=== PATIENT | male | born 1945 | race Caucasian/White ===

== ENCOUNTER → 2017-02-27 | Outpatient (CLI) | payer MEDICARE ==
[2017-02-27 08:10] LABS: ALT 29 U/L (21-72); AST 26 U/L (17-59); Alkaline Phosphatase 62 U/L (38-126); Anion Gap 12 mmol/L; Blood Urea Nitrogen 19 mg/dL (9-20); Calcium 9.9 mg/dL (8.4-10.2); Carbon Dioxide 27 mmol/L (22-30); Chloride 102 mmol/L (98-107); Cholesterol 174 mg/dL (<200); Glucose 101 mg/dL (74-99); HDL Cholesterol 53 mg/dL (40-60); Non-African American GFR(MDRD) >60 (>60 ml/min/1.73 sqM); Potassium 4.9 mmol/L (3.5-5.1); Sodium 141 mmol/L (137-145); Total Bilirubin 1.1 mg/dL (0.2-1.3); Total Protein 7.4 g/dL (6.3-8.2); Triglycerides 136 mg/dL (<150)
== END | disposition home or self-care (01) ==
LOC: LABWHC1 07:00
PROVIDERS: ATTEND Internal Medicine Interventional Cardiology
DX: E78.2 Mixed hyperlipidemia (principal)
CPT/HCPCS: 36415; 80053; 80061

== ENCOUNTER 2018-02-19 09:57 | Emergency (ER) | payer MEDICARE ==
[2018-02-19 10:53] LABS: Basophils % (A) 0 %; Eosinophils # (A) 0.1 k/uL (0-0.7); Eosinophils % (A) 1 %; HCT 47.6 % (39.0-53.0); HGB 15.5 gm/dL (13.0-17.5); Lymphocytes # (A) 1.7 k/uL (1.0-4.8); Lymphocytes % (A) 24 %; MCH 28.8 pg (25.0-35.0); MCHC 32.6 g/dL (31.0-37.0); MCV 88.4 fL (80.0-100.0); Mean Platelet Volume 6.7; Monocytes # (A) 0.4 k/uL (0-1.0); Monocytes % (A) 6 %; Neutrophils # (A) 4.7 k/uL (1.3-7.7); Neutrophils % (A) 66 %; Platelet Count 227 k/uL (150-450); RBC 5.38 m/uL (4.30-5.90); RDW 13.5 % (11.5-15.5); WBC 7.1 k/uL (3.8-10.6)
[2018-02-19 11:01] LABS: Albumin 4.3 g/dL (3.5-5.0); Calcium 9.9 mg/dL (8.4-10.2); Potassium 4.7 mmol/L (3.5-5.1); Total Bilirubin 1.1 mg/dL (0.2-1.3); Total Protein 6.8 g/dL (6.3-8.2)
[2018-02-19] MEDS ORDERED: RX INFO: IV CONTRAST WAS GIVEN 1 EACH MISC MISCELLANE PRN (11:24)
--- NOTE | 2018-02-19 11:26 | ED ---
General Adult HPI - General Chief complaint: Abdominal Pain Stated complaint: abd pain Time Seen by Provider: 02/19/18 11:18 Source: patient, RN notes reviewed Mode of arrival: ambulatory Limitations: no limitations - History of Present Illness Initial comments: Patient 73-year-old male presenting to the emergency room today with a chief complaint of left lower quadrant pain that started 3 days ago. Patient states that pain is constant and at times becomes more intense and sharp. Patient currently rates it a 6/10. Patient does admit to feeling a little nauseated this morning. Patient denies any other complaints or symptoms. States never had similar symptoms in the past. Patient denies any recent fever, chills, shortness of breath, chest pain, back pain, vomiting, numbness or tingling, dysuria or hematuria, constipation or diarrhea, headaches or visual changes, or any other complaints. - Related Data Home Medications Medication Instructions Recorded Confirmed Aspirin 81 mg PO DAILY 06/22/14 02/19/18 Lisinopril [Prinivil] 5 mg PO HS 06/22/14 02/19/18 Pravastatin Sodium [Pravachol] 80 mg PO HS 06/22/14 02/19/18 Previous Rx's Medication Instructions Recorded Ciprofloxacin HCl [Cipro] 500 mg PO Q12HR #20 day 02/19/18 metroNIDAZOLE [Flagyl] 500 mg PO TID #21 tab 02/19/18 Allergies Allergy/AdvReac Type Severity Reaction Status Date / Time Penicillins Allergy Rash/Hives Verified 02/19/18 11:43 chocolate Allergy Abdominal Uncoded 02/19/18 10:01 Pain Review of Systems ROS Statement: Those systems with pertinent positive or pertinent negative responses have been documented in the HPI. ROS Other: All systems not noted in ROS Statement are negative. Past Medical History Past Medical History: Coronary Artery Disease (CAD), Hyperlipidemia, Hypertension, Pneumonia Additional Past Medical History / Comment(s): SL Varicose Veins. SL MURMUR. Hiatal Hernia. SOB with Activity. Arthritis History of Any Multi-Drug Resistant Organisms: None Reported Past Surgical History: Adenoidectomy, Heart Catheterization With Stent, Tonsillectomy Additional Past Surgical History / Comment(s): HEART CATH X2, STENT X1 EACH TIME. Past Anesthesia/Blood Transfusion Reactions: No Reported Reaction Date of Last Stent Placement:: 02/2014 Past Psychological History: No Psychological Hx Reported Smoking Status: Former smoker Past Alcohol Use History: None Reported Past Drug Use History: None Reported - Past Family History Mother Family Medical History: No Reported History General Exam - General Exam Comments Initial Comments: General: The patient is awake and alert, in no distress, and does not appear acutely ill. Eye: Pupils are equal, round and reactive to light, extra-ocular movements are intact. No nystagmus. There is normal conjunctiva bilaterally. No signs of icterus. Ears, nose, mouth and throat: There are moist mucous membranes and no oral lesions. Neck: The neck is supple, there is no tenderness or JVD. Cardiovascular: There is a regular rate and rhythm. No murmur, rub or gallop is appreciated. Respiratory: Lungs are clear to auscultation, respirations are non-labored, breath sounds are equal. No wheezes, stridor, rales, or rhonchi. Gastrointestinal: Abdomen soft on palpation. Does have tenderness left lower quadrant. No rebound tenderness. No guarding. No CVA tenderness. Musculoskeletal: Normal ROM, no tenderness. Strength 5/5. Sensation intact. Pulses equal bilaterally 2+. Neurological: A&O x 3. CN II-XII intact, There are no obvious motor or sensory deficits. Coordination appears grossly intact. Speech is normal. Skin: Skin is warm and dry and no rashes or lesions are noted. Psychiatric: Cooperative, appropriate mood & affect, normal judgment. Limitations: no limitations Course Vital Signs 02/19/18 02/19/18 09:59 12:00 Temperature 98.1 F 97.2 F L Pulse Rate 82 66 Respiratory 20 18 Rate Blood Pressure 161/81 121/61 O2 Sat by Pulse 98 97 Oximetry Medical Decision Making - Medical Decision Making Patient reexamined at this time shows no signs of distress. Patient's labs been reviewed. No elevated white count. No fever. Vitals are stable. Patient 's CT does show evidence for a mild diverticulitis. Patient will be started on antibiotics of Cipro / Flagyl patient states feels comfortable being discharged home follow family physician. Advised that he should return if any symptoms increase or worsen. - Lab Data Result diagrams: 02/19/18 10:40 02/19/18 10:40 Lab Results 02/19/18 02/19/18 02/19/18 Range/Units 10:40 10:40 10:40 WBC 7.1 (3.8-10.6) k/uL RBC 5.38 (4.30-5.90) m/uL Hgb 15.5 (13.0-17.5) gm/dL Hct 47.6 (39.0-53.0) % MCV 88.4 (80.0-100.0) fL MCH 28.8 (25.0-35.0) pg MCHC 32.6 (31.0-37.0) g/dL RDW 13.5 (11.5-15.5) % Plt Count 227 (150-450) k/uL Neutrophils % 66 % Lymphocytes % 24 % Monocytes % 6 % Eosinophils % 1 % Basophils % 0 % Neutrophils # 4.7 (1.3-7.7) k/uL Lymphocytes # 1.7 (1.0-4.8) k/uL Monocytes # 0.4 (0-1.0) k/uL Eosinophils # 0.1 (0-0.7) k/uL Basophils # 0.0 (0-0.2) k/uL PT (9.0-12.0) sec INR (<1.2) APTT (22.0-30.0) sec Sodium 144 (137-145) mmol/L Potassium 4.7 (3.5-5.1) mmol/L Chloride 104 (98-107) mmol/L Carbon Dioxide 28 (22-30) mmol/L Anion Gap 12 mmol/L BUN 14 (9-20) mg/dL Creatinine 1.05 (0.66-1.25) mg/dL Est GFR (CKD-EPI)AfAm 83 (>60 ml/min/1.73 sqM) Est GFR (CKD-EPI)NonAf 72 (>60 ml/min/1.73 sqM) Glucose 101 H (74-99) mg/dL Calcium 9.9 (8.4-10.2) mg/dL Total Bilirubin 1.1 (0.2-1.3) mg/dL AST 25 (17-59) U/L ALT 33 (21-72) U/L Alkaline Phosphatase 78 (38-126) U/L Total Protein 6.8 (6.3-8.2) g/dL Albumin 4.3 (3.5-5.0) g/dL Amylase 62 (30-110) U/L Lipase 55 (23-300) U/L 02/19/18 Range/Units 10:40 WBC (3.8-10.6) k/uL RBC (4.30-5.90) m/uL Hgb (13.0-17.5) gm/dL Hct (39.0-53.0) % MCV (80.0-100.0) fL MCH (25.0-35.0) pg MCHC (31.0-37.0) g/dL RDW (11.5-15.5) % Plt Count (150-450) k/uL Neutrophils % % Lymphocytes % % Monocytes % % Eosinophils % % Basophils % % Neutrophils # (1.3-7.7) k/uL Lymphocytes # (1.0-4.8) k/uL Monocytes # (0-1.0) k/uL Eosinophils # (0-0.7) k/uL Basophils # (0-0.2) k/uL PT 10.2 (9.0-12.0) sec INR 1.0 (<1.2) APTT 25.7 (22.0-30.0) sec Sodium (137-145) mmol/L Potassium (3.5-5.1) mmol/L Chloride (98-107) mmol/L Carbon Dioxide (22-30) mmol/L Anion Gap mmol/L BUN (9-20) mg/dL Creatinine (0.66-1.25) mg/dL Est GFR (CKD-EPI)AfAm (>60 ml/min/1.73 sqM) Est GFR (CKD-EPI)NonAf (>60 ml/min/1.73 sqM) Glucose (74-99) mg/dL Calcium (8.4-10.2) mg/dL Total Bilirubin (0.2-1.3) mg/dL AST (17-59) U/L ALT (21-72) U/L Alkaline Phosphatase (38-126) U/L Total Protein (6.3-8.2) g/dL Albumin (3.5-5.0) g/dL Amylase (30-110) U/L Lipase (23-300) U/L Disposition Clinical Impression: Diverticulitis Disposition: HOME SELF-CARE Condition: Good Instructions: Diverticulitis (ED) Additional Instructions: Please use medication as discussed. Please follow-up with family doctor in the next 2 days. Please return to emergency room if the symptoms increase or worsen or for any other concerns. Prescriptions: Ciprofloxacin HCl [Cipro] 500 mg PO Q12HR #20 day metroNIDAZOLE [Flagyl] 500 mg PO TID #21 tab Referrals: Sameer Mcneil DO [Primary Care Provider] - 1-2 days Time of Disposition: 12:49
[2018-02-19 11:48] LABS: Amylase 62 U/L (30-110); Lipase 55 U/L (23-300)
[2018-02-19 12:22] LABS: Partial Thromboplastin Time 25.7 sec (22.0-30.0); Prothrombin Time 10.2 sec (9.0-12.0)
[2018-02-19 12:37] VITALS: RESP 18
--- NOTE | 2018-02-19 12:39 | CT ---
EXAMINATION TYPE: CT abdomen pelvis w con DATE OF EXAM: 02/19/2018 COMPARISON: NONE HISTORY: Left lower quadrant pain x [address] DLP: 1556 mGycm CONTRAST: CT scan of the abdomen and pelvis is performed without Oral Contrast and with IV Contrast, patient in jected with 100 mL of Isovue 300. FINDINGS: LUNG BASES-: No visible nodule. No infiltrate. LIVER/GB: No calcified gallstones. No space occupying hepatic lesion. Biliary tree is of normal ca liber. PANCREAS: No inflammation. No distinct mass. SPLEEN: No splenic enlargement. No lesion seen. ADRENALS: No nodule. No thickening. KIDNEYS/BLADDER: No hydronephrosis. Nonobstructing calculus mid to upper pole right kidney measuring 1.4 cm. No additional renal calculi seen. Large lower pole cyst right kidney measuring 6.9 cm in [facility]. Smaller cortical cysts seen bilaterally without solid lesion. Urinary bladder grossly unremarkab le. BOWEL: Normal appendix. Scattered colonic diverticulosis. There is mild wall thickening and minimal pericolonic stranding noted descending colon which could reflect a very mild degree of colitis or div erticulitis. No perforation or abscess. Normal bowel caliber. No inflammation. GENITAL ORGANS: Prostate gland enlargement. LYMPH NODES: No greater than 1cm abdominal or pelvic lymph nodes are appreciated. AORTA: No significant abnormality. OSSEOUS STRUCTURES: Degenerative changes lumbar spine.. OTHER: Fat-containing inguinal hernias. Fat-containing umbilical hernia.. IMPRESSION: 1. I cannot exclude a mild uncomplicated diverticulitis or colitis mid descending colon.
[2018-02-19 12:55] LABS: Appearance,Urine Clear (Clear); Bilirubin,Urine Negative (Negative); Blood,Urine Negative (Negative); Color,Urine Yellow; Glucose,Urine (UA) Negative (Negative); Ketones,Urine Negative (Negative); Leukocyte Esterase,Urine Trace (Negative); Mucus,Urine Rare /hpf; Nitrite,Urine Negative (Negative); Protein,Urine Negative (Negative); RBC,Urine 1 /hpf (0-5); Specific Gravity,Urine 1.037 (1.001-1.035); Urobilinogen,Urine <2.0 mg/dL (<2.0); WBC,Urine 4 /hpf (0-5)
[2018-02-19 13:24] VITALS: BP 132/62; PULSE 70; TEMP 97.4
== END 2018-02-19 13:15 | disposition home or self-care (01) ==
LOC: EC 09:57
DX: K57.92 Diverticulitis of intestine, part unspecified, without perforation or abscess without bleeding (principal); I25.10 Atherosclerotic heart disease of native coronary artery without angina pectoris; E78.5 Hyperlipidemia, unspecified; I10 Essential (primary) hypertension; Z87.891 Personal history of nicotine dependence; Z79.82 Long term (current) use of aspirin; Z79.899 Other long term (current) drug therapy; Z88.0 Allergy status to penicillin; Z91.018 Allergy to other foods
CPT/HCPCS: 36415; 80053; 82150; 83690; 85025; 85610; 85730; 81001; 74177; 99284; Q9967

== ENCOUNTER 2018-04-20 15:24 | Emergency (ER) | payer MEDICARE ==
[2018-04-20] MEDS ORDERED: IPRATROPIUM-ALBUTEROL 3 ML NEB INHALATION STA (16:06)
[2018-04-20] MEDS ORDERED: AZITHROMYCIN 500 MG in SODIUM CHLORIDE 0.9% 250 ML IVPB STA (16:06)
[2018-04-20] MEDS ORDERED: methylPREDNISolone SOD SUCCI 125 MG/2 ML VIAL IV STA (16:06)
[2018-04-20] MEDS ORDERED: SODIUM CHLORIDE 0.9% 1,000 ML IV STA (16:06)
--- NOTE | 2018-04-20 16:10 | ED ---
SOB HPI - General Chief Complaint: Shortness of Breath Stated Complaint: SOB Time Seen by Provider: 04/20/18 15:47 Source: patient Mode of arrival: ambulatory Limitations: no limitations - History of Present Illness Initial Comments: This 73-year-old white male presents with a complaint of some difficulty in breathing and cough which is been present for approximately 2 weeks. He states that he has had a nonproductive cough. This seems worse when he lays down flat. The shortness of breath is somewhat worse with exertion. He denies any chest pain or known fever. He was seen at the urgent care center about 2 weeks ago and was diagnosed with upper respiratory infection. He then was seen again 4 days ago and had an x-ray done and they diagnosed him with pneumonia. They called him today to check on him and he states that he was not doing any better so they sent him to the ER. He is been on Levaquin for the last 4 days without any relief. They also tried him on some Flonase and an albuterol HFA. He denies any previously known lung problems but did smoke a pipe for many years. He denies any history of COPD or asthma. He does have a history of previous cardiac stenting. There is no leg pain or swelling or history of DVT or PE. No other complaints or modifying factors. - Related Data Home Medications Medication Instructions Recorded Confirmed Aspirin 81 mg PO DAILY 06/22/14 04/20/18 Lisinopril [Prinivil] 5 mg PO HS 06/22/14 04/20/18 Pravastatin Sodium [Pravachol] 80 mg PO HS 06/22/14 04/20/18 Previous Rx's Medication Instructions Recorded guaiFENesin-Coden 100-10MG/5ML 10 ml PO Q4HR PRN #200 ml 04/20/18 [Robitussin AC] predniSONE 20 mg PO BID #10 tab 04/20/18 Allergies Allergy/AdvReac Type Severity Reaction Status Date / Time Penicillins Allergy Rash/Hives Verified 04/20/18 17:43 chocolate Allergy Abdominal Uncoded 04/20/18 15:35 Pain Review of Systems ROS Statement: Those systems with pertinent positive or pertinent negative responses have been documented in the HPI. ROS Other: All systems not noted in ROS Statement are negative. Past Medical History Past Medical History: Coronary Artery Disease (CAD), Hyperlipidemia, Hypertension, Pneumonia Additional Past Medical History / Comment(s): SL Varicose Veins. SL MURMUR. Hiatal Hernia. SOB with Activity. Arthritis History of Any Multi-Drug Resistant Organisms: None Reported Past Surgical History: Adenoidectomy, Heart Catheterization With Stent, Tonsillectomy Additional Past Surgical History / Comment(s): HEART CATH X2, STENT X1 EACH TIME. Past Anesthesia/Blood Transfusion Reactions: No Reported Reaction Date of Last Stent Placement:: 02/2014 Past Psychological History: No Psychological Hx Reported Smoking Status: Former smoker Past Alcohol Use History: None Reported Past Drug Use History: None Reported - Past Family History Mother Family Medical History: No Reported History General Exam - General Exam Comments Initial Comments: GENERAL: The patient is well nourished and well hydrated. VITAL SIGNS: Heart rate, blood pressure, respiratory rate reviewed as recorded in nurse's notes. EYES: Pupils are round and reactive. Extraocular movements are intact. No conjunctival / lid redness or swelling. ENT: No external evidence of injury, swelling, or ecchymosis. Airway is patent. Throat is clear. NECK: Nontender. No swelling or evidence of injury. No subcutaneous emphysema. Trachea is midline. No thyroid mass. HEART: Regular rate and rhythm. Good peripheral pulses. LUNGS/CHEST: Breath sounds clear and equal bilaterally. No rales, rhonchi, or wheezes. No ecchymosis, subcutaneous emphysema, or tenderness. Frequent cough noted. ABDOMEN: Abdomen soft without tenderness. No palpable masses or organomegaly. No peritoneal signs. No abdominal wall swelling or ecchymosis. EXTREMITIES: No extremity tenderness. Normal muscle tone and function. No thoracolumbar tenderness. No extremity swelling. NEUROLOGIC: Sensation is grossly intact. Cranial nerve exam reveals face is symmetrical, tongue is midline, speech is clear. SKIN: No abrasions or ecchymosis is noted. No induration or masses noted. PSYCHIATRIC: Alert and oriented. Appropriate behavior and judgment. Limitations: no limitations Course Vital Signs 04/20/18 04/20/18 04/20/18 15:32 16:00 16:21 Temperature 98.1 F Pulse Rate 114 H 80 Respiratory 18 20 Rate Blood Pressure 125/77 O2 Sat by Pulse 98 Oximetry 04/20/18 04/20/18 16:27 17:20 Temperature Pulse Rate 83 80 Respiratory 20 Rate Blood Pressure 148/87 O2 Sat by Pulse Oximetry Medical Decision Making - Medical Decision Making The patient was seen and examined. All diagnostics were reviewed. An IV is started and he is minimally hydrated. He does receive some Solu-Medrol and Zithromax IV. He also receives a DuoNeb breathing treatment. The EKG shows a normal sinus rhythm at a rate of 86. There is no acute ST-T wave changes noted. There is evidence of left ventricular hypertrophy. The VA interval is 136, QRS duration is 86, and the QTC intervals 435. The laboratory overall is unremarkable with a negative troponin and negative d-dimer. The x-ray shows a patchy left basilar opacity which may represent early developing pneumonia or atelectasis. It is felt as though the patient does have a likely pneumonia. It is been fairly persistent. He has been on the Levaquin for approximately 4 days. It is felt as though he should continue with this medication. On recheck , he states that the breathing treatment did not help him much. He is still coughing. He also states that he has seen Dr. Marin in the past for similar incident. It is felt as though he should continue with the Levaquin and we will also prescribe him a cough medication as well as some steroids. The radiologist notes that he may have some COPD per chest x-ray. In addition, it is felt as though he should follow-up with Dr. Marin in case there is other underlying lung problems such as a rare infection. He does understand to return if his symptoms do worsen over the weekend. On recheck, his pulse ox is 98% on room air. - Lab Data Result diagrams: 04/20/18 16:22 04/20/18 16:22 Lab Results 04/20/18 04/20/18 04/20/18 Range/Units 16:22 16:22 16:22 WBC 8.2 (3.8-10.6) k/uL RBC 5.09 (4.30-5.90) m/uL Hgb 15.9 (13.0-17.5) gm/dL Hct 45.0 (39.0-53.0) % MCV 88.4 (80.0-100.0) fL MCH 31.3 (25.0-35.0) pg MCHC 35.4 (31.0-37.0) g/dL RDW 13.7 (11.5-15.5) % Plt Count 277 (150-450) k/uL Neutrophils % 61 % Lymphocytes % 28 % Monocytes % 7 % Eosinophils % 2 % Basophils % 0 % Neutrophils # 5.0 (1.3-7.7) k/uL Lymphocytes # 2.3 (1.0-4.8) k/uL Monocytes # 0.6 (0-1.0) k/uL Eosinophils # 0.2 (0-0.7) k/uL Basophils # 0.0 (0-0.2) k/uL PT (9.0-12.0) sec INR (<1.2) APTT (22.0-30.0) sec D-Dimer (<0.60) mg/L FEU Sodium 140 (137-145) mmol/L Potassium 4.1 (3.5-5.1) mmol/L Chloride 102 (98-107) mmol/L Carbon Dioxide 24 (22-30) mmol/L Anion Gap 14 mmol/L BUN 20 (9-20) mg/dL Creatinine 0.96 (0.66-1.25) mg/dL Est GFR (CKD-EPI)AfAm >90 (>60 ml/min/1.73 sqM) Est GFR (CKD-EPI)NonAf 80 (>60 ml/min/1.73 sqM) Glucose 90 (74-99) mg/dL Calcium 9.6 (8.4-10.2) mg/dL Total Bilirubin 0.7 (0.2-1.3) mg/dL AST 30 (17-59) U/L ALT 45 (21-72) U/L Alkaline Phosphatase 70 (38-126) U/L Total Creatine Kinase 72 (55-170) U/L CK-MB (CK-2) 3.0 H* (0.0-2.4) ng/mL CK-MB (CK-2) Rel Index 4.2 Troponin I 0.012 (0.000-0.034) ng/mL NT-Pro-B Natriuret Pep pg/mL Total Protein 6.3 (6.3-8.2) g/dL Albumin 3.9 (3.5-5.0) g/dL 04/20/18 04/20/18 Range/Units 16:22 16:22 WBC (3.8-10.6) k/uL RBC (4.30-5.90) m/uL Hgb (13.0-17.5) gm/dL Hct (39.0-53.0) % MCV (80.0-100.0) fL MCH (25.0-35.0) pg MCHC (31.0-37.0) g/dL RDW (11.5-15.5) % Plt Count (150-450) k/uL Neutrophils % % Lymphocytes % % Monocytes % % Eosinophils % % Basophils % % Neutrophils # (1.3-7.7) k/uL Lymphocytes # (1.0-4.8) k/uL Monocytes # (0-1.0) k/uL Eosinophils # (0-0.7) k/uL Basophils # (0-0.2) k/uL PT 10.2 (9.0-12.0) sec INR 1.0 (<1.2) APTT 24.1 (22.0-30.0) sec D-Dimer 0.23 (<0.60) mg/L FEU Sodium (137-145) mmol/L Potassium (3.5-5.1) mmol/L Chloride (98-107) mmol/L Carbon Dioxide (22-30) mmol/L Anion Gap mmol/L BUN (9-20) mg/dL Creatinine (0.66-1.25) mg/dL Est GFR (CKD-EPI)AfAm (>60 ml/min/1.73 sqM) Est GFR (CKD-EPI)NonAf (>60 ml/min/1.73 sqM) Glucose (74-99) mg/dL Calcium (8.4-10.2) mg/dL Total Bilirubin (0.2-1.3) mg/dL AST (17-59) U/L ALT (21-72) U/L Alkaline Phosphatase (38-126) U/L Total Creatine Kinase (55-170) U/L CK-MB (CK-2) (0.0-2.4) ng/mL CK-MB (CK-2) Rel Index Troponin I (0.000-0.034) ng/mL NT-Pro-B Natriuret Pep 228 pg/mL Total Protein (6.3-8.2) g/dL Albumin (3.5-5.0) g/dL Disposition Clinical Impression: Dyspnea, Cough, Pneumonia, Hypertension Disposition: HOME SELF-CARE Condition: Good Additional Instructions: Please continue with the Levaquin antibiotic and the inhalers. Prescriptions: guaiFENesin-Coden 100-10MG/5ML [Robitussin AC] 10 ml PO Q4HR PRN #200 ml PRN Reason: Cough predniSONE 20 mg PO BID #10 tab Is patient prescribed a controlled substance at d/c from ED?: Yes When asked, does pt state using other controlled substances?: No If prescribed controlled substance>3 days was MAPS reviewed?: Prescribed <3 Days If Rx opioid, was Start Talking consent form obtained?: No Referrals: Mauricio Marin DO [Doctor of Osteopathic Medicine] - 04/23/18 Sameer Mcneil DO [Primary Care Provider] - 04/23/18 Time of Disposition: 17:51
[2018-04-20 16:32] LABS: Basophils % (A) 0 %; Eosinophils # (A) 0.2 k/uL (0-0.7); Eosinophils % (A) 2 %; HGB 15.9 gm/dL (13.0-17.5); Lymphocytes # (A) 2.3 k/uL (1.0-4.8); Lymphocytes % (A) 28 %; MCH 31.3 pg (25.0-35.0); MCHC 35.4 g/dL (31.0-37.0); MCV 88.4 fL (80.0-100.0); Mean Platelet Volume 6.1; Monocytes # (A) 0.6 k/uL (0-1.0); Monocytes % (A) 7 %; Neutrophils % (A) 61 %; Platelet Count 277 k/uL (150-450); RBC 5.09 m/uL (4.30-5.90); RDW 13.7 % (11.5-15.5); WBC 8.2 k/uL (3.8-10.6)
[2018-04-20 16:45] LABS: ALT 45 U/L (21-72); AST 30 U/L (17-59); Albumin 3.9 g/dL (3.5-5.0); Alkaline Phosphatase 70 U/L (38-126); Anion Gap 14 mmol/L; Blood Urea Nitrogen 20 mg/dL (9-20); Calcium 9.6 mg/dL (8.4-10.2); Carbon Dioxide 24 mmol/L (22-30); Chloride 102 mmol/L (98-107); Glucose 90 mg/dL (74-99); Potassium 4.1 mmol/L (3.5-5.1); Sodium 140 mmol/L (137-145); Total Bilirubin 0.7 mg/dL (0.2-1.3); Total Protein 6.3 g/dL (6.3-8.2)
[2018-04-20 16:50] LABS: D-Dimer 0.23 mg/L FEU (<0.60); Partial Thromboplastin Time 24.1 sec (22.0-30.0); Prothrombin Time 10.2 sec (9.0-12.0)
--- NOTE | 2018-04-20 16:56 | XR ---
EXAMINATION TYPE: XR chest 2V DATE OF EXAM: 04/20/2018 COMPARISON: NONE HISTORY: Fecal debris TECHNIQUE: Frontal and lateral views of the chest are obtained. FINDINGS: There is a pectus excavatum deformity slightly silhouetting the right heart border. Patchy opacity seen at the left lung base and at the costophrenic angle. Pulmonary per inflation represents underlying COPD. Mild degenerative changes of the thoracic spine are seen in combination with general ized osseous demineralization. No discrete pneumothorax. Cardiomediastinal silhouette is within josue l limits. IMPRESSION: Patchy left basilar opacity may represent early developing pneumonia or atelectasis. Fin dings are superimposed upon COPD.
[2018-04-20 17:11] LABS: Troponin I 0.012 ng/mL (0.000-0.034)
--- NOTE | 2018-04-20 17:59 | ED ---
Medical Decision Making - Lab Data Result diagrams: 04/20/18 16:22 04/20/18 16:22 Lab Results 04/20/18 04/20/18 04/20/18 Range/Units 16:22 16:22 16:22 WBC 8.2 (3.8-10.6) k/uL RBC 5.09 (4.30-5.90) m/uL Hgb 15.9 (13.0-17.5) gm/dL Hct 45.0 (39.0-53.0) % MCV 88.4 (80.0-100.0) fL MCH 31.3 (25.0-35.0) pg MCHC 35.4 (31.0-37.0) g/dL RDW 13.7 (11.5-15.5) % Plt Count 277 (150-450) k/uL Neutrophils % 61 % Lymphocytes % 28 % Monocytes % 7 % Eosinophils % 2 % Basophils % 0 % Neutrophils # 5.0 (1.3-7.7) k/uL Lymphocytes # 2.3 (1.0-4.8) k/uL Monocytes # 0.6 (0-1.0) k/uL Eosinophils # 0.2 (0-0.7) k/uL Basophils # 0.0 (0-0.2) k/uL PT (9.0-12.0) sec INR (<1.2) APTT (22.0-30.0) sec D-Dimer (<0.60) mg/L FEU Sodium 140 (137-145) mmol/L Potassium 4.1 (3.5-5.1) mmol/L Chloride 102 (98-107) mmol/L Carbon Dioxide 24 (22-30) mmol/L Anion Gap 14 mmol/L BUN 20 (9-20) mg/dL Creatinine 0.96 (0.66-1.25) mg/dL Est GFR (CKD-EPI)AfAm >90 (>60 ml/min/1.73 sqM) Est GFR (CKD-EPI)NonAf 80 (>60 ml/min/1.73 sqM) Glucose 90 (74-99) mg/dL Calcium 9.6 (8.4-10.2) mg/dL Total Bilirubin 0.7 (0.2-1.3) mg/dL AST 30 (17-59) U/L ALT 45 (21-72) U/L Alkaline Phosphatase 70 (38-126) U/L Total Creatine Kinase 72 (55-170) U/L CK-MB (CK-2) 3.0 H* (0.0-2.4) ng/mL CK-MB (CK-2) Rel Index 4.2 Troponin I 0.012 (0.000-0.034) ng/mL NT-Pro-B Natriuret Pep pg/mL Total Protein 6.3 (6.3-8.2) g/dL Albumin 3.9 (3.5-5.0) g/dL 04/20/18 04/20/18 Range/Units 16:22 16:22 WBC (3.8-10.6) k/uL RBC (4.30-5.90) m/uL Hgb (13.0-17.5) gm/dL Hct (39.0-53.0) % MCV (80.0-100.0) fL MCH (25.0-35.0) pg MCHC (31.0-37.0) g/dL RDW (11.5-15.5) % Plt Count (150-450) k/uL Neutrophils % % Lymphocytes % % Monocytes % % Eosinophils % % Basophils % % Neutrophils # (1.3-7.7) k/uL Lymphocytes # (1.0-4.8) k/uL Monocytes # (0-1.0) k/uL Eosinophils # (0-0.7) k/uL Basophils # (0-0.2) k/uL PT 10.2 (9.0-12.0) sec INR 1.0 (<1.2) APTT 24.1 (22.0-30.0) sec D-Dimer 0.23 (<0.60) mg/L FEU Sodium (137-145) mmol/L Potassium (3.5-5.1) mmol/L Chloride (98-107) mmol/L Carbon Dioxide (22-30) mmol/L Anion Gap mmol/L BUN (9-20) mg/dL Creatinine (0.66-1.25) mg/dL Est GFR (CKD-EPI)AfAm (>60 ml/min/1.73 sqM) Est GFR (CKD-EPI)NonAf (>60 ml/min/1.73 sqM) Glucose (74-99) mg/dL Calcium (8.4-10.2) mg/dL Total Bilirubin (0.2-1.3) mg/dL AST (17-59) U/L ALT (21-72) U/L Alkaline Phosphatase (38-126) U/L Total Creatine Kinase (55-170) U/L CK-MB (CK-2) (0.0-2.4) ng/mL CK-MB (CK-2) Rel Index Troponin I (0.000-0.034) ng/mL NT-Pro-B Natriuret Pep 228 pg/mL Total Protein (6.3-8.2) g/dL Albumin (3.5-5.0) g/dL Disposition Clinical Impression: Dyspnea, Cough, Pneumonia, Hypertension Disposition: HOME SELF-CARE Condition: Good Instructions: Pneumonia (ED), Hypertension (ED) Additional Instructions: Please continue with the Levaquin antibiotic and the inhalers. Prescriptions: guaiFENesin-Coden 100-10MG/5ML [Robitussin AC] 10 ml PO Q4HR PRN #200 ml PRN Reason: Cough predniSONE 20 mg PO BID #10 tab Is patient prescribed a controlled substance at d/c from ED?: Yes When asked, does pt state using other controlled substances?: No If prescribed controlled substance>3 days was MAPS reviewed?: Prescribed <3 Days If Rx opioid, was Start Talking consent form obtained?: No Referrals: Mauricio Marin DO [Doctor of Osteopathic Medicine] - 04/23/18 Sameer Mcneil DO [Primary Care Provider] - 04/23/18 Time of Disposition: 17:59
[2018-04-20 19:50] VITALS: BP 128/80; PULSE 76; RESP 18; TEMP 98.7
== END 2018-04-20 19:30 | disposition home or self-care (01) ==
LOC: EC 15:24
DX: J18.9 Pneumonia, unspecified organism (principal); I10 Essential (primary) hypertension; I25.10 Atherosclerotic heart disease of native coronary artery without angina pectoris; E78.5 Hyperlipidemia, unspecified; Z95.5 Presence of coronary angioplasty implant and graft; Z87.891 Personal history of nicotine dependence; Z79.82 Long term (current) use of aspirin; Z79.899 Other long term (current) drug therapy; Z88.0 Allergy status to penicillin; Z91.018 Allergy to other foods
CPT/HCPCS: 36415; 94640; 93005; 85379; 83880; 80053; 82550; 82553; 84484; 85025; 85610; 85730; 87040; 71046; 99285; 96365; 96366; 96375; 96361; J2930; J0456

== ENCOUNTER → 2018-05-09 | Outpatient (CLI) | payer MEDICARE ==
[2018-05-09 07:57] LABS: Albumin 4.1 g/dL (3.5-5.0); Calcium 9.5 mg/dL (8.4-10.2); Potassium 4.4 mmol/L (3.5-5.1); Total Bilirubin 0.6 mg/dL (0.2-1.3); Total Protein 6.3 g/dL (6.3-8.2)
== END | disposition home or self-care (01) ==
LOC: LABWHC1 07:11
PROVIDERS: ATTEND Internal Medicine Interventional Cardiology
DX: E78.2 Mixed hyperlipidemia (principal)
CPT/HCPCS: 36415; 80053; 80061

== ENCOUNTER → 2018-10-22 | Outpatient (CLI) | payer MEDICARE ==
[2018-10-22 12:29] LABS: Albumin 4.5 g/dL (3.80-4.90); Albumin/Globulin Ratio 2.65 (1.20-2.10); Anion Gap 6.4 mmol/L (4.00-12.00); Calcium 9.6 mg/dL (8.7-10.3); Carbon Dioxide 27.6 mmol/L (21.6-31.8); Globulin 1.7 g/dL (2.1-3.7); LDL Cholesterol,Calculated 73.2 mg/dL (0.0-131.0); Potassium 4.4 mmol/L (3.5-5.5); Total Bilirubin 0.9 mg/dL (0.3-1.2); Total Protein 6.2 g/dL (6.2-8.2); VLDL Calculation 17.8 mg/dL (5.00-40.00)
== END | disposition home or self-care (01) ==
LOC: LABWHC1 06:30
PROVIDERS: ATTEND Internal Medicine Interventional Cardiology
DX: E78.2 Mixed hyperlipidemia (principal)
CPT/HCPCS: 36415; 80053; 80061

== ENCOUNTER → 2018-11-01 | Outpatient (CLI) | payer MEDICARE ==
--- NOTE | 2018-11-01 16:55 | CT ---
EXAMINATION TYPE: CT chest wo con DATE OF EXAM: 11/01/2018 COMPARISON: None HISTORY: High resolution protocol. Cough. CT DLP: 583.6 mGycm, Automated exposure control for dose reduction was used. CONTRAST: None TECHNIQUE: Axial images were obtained at 1 mm thick sections at 10 mm intervals. This will limit po rtions of the examination which may not be visualized within the [id number]. Images were obtained in the prone and supine views. FINDINGS: Portion of the thyroid visualized is normal. No suspicious lung nodules or focal infiltrat es are present. No enlarged mediastinal or hilar adenopathy is evident. The ascending aorta diameter at the level o f the main pulmonary artery is 4.3 cm. The main pulmonary artery diameter at the bifurcation is 2.9 cm. Coronary artery calcifications present. Limited CT sections are obtained through the upper abdomen. Abdomen is essentially unremarkable. IMPRESSIONS: 1. Ascending thoracic aortic aneurysm. This measures 4.63 cm. Follow-up CT is recommended. 2. No suspicious findings to account for patient's symptoms of cough
== END | disposition home or self-care (01) ==
LOC: RADCTMAIN 13:51
PROVIDERS: ATTEND Internal Medicine Critical Care Medicine
DX: R91.8 Other nonspecific abnormal finding of lung field (principal); Z88.0 Allergy status to penicillin
CPT/HCPCS: 71250

== ENCOUNTER 2019-02-03 12:32 | Observation (INO) | payer MEDICARE ==
[2019-02-03] MEDS ORDERED: SODIUM CHLORIDE 0.9% 1,000 ML IV STA (12:56)
--- NOTE | 2019-02-03 13:00 | ED ---
General Adult HPI - General Chief complaint: Syncope Stated complaint: Syncope Time Seen by Provider: 02/03/19 12:42 Source: patient, EMS, RN notes reviewed Mode of arrival: EMS Limitations: no limitations - History of Present Illness Initial comments: Patient is a pleasant 74-year-old male presenting to the emergency department following a syncopal episode. Patient was walking in a store and had one or 2 near-syncopal episodes followed by a full syncopal episode. Patient did vomit and urinate on himself. Patient feels somewhat generally weak and fatigued. No isolated area of weakness. No confusion. No history of similar symptoms previously. Patient states he has had a mild cough and chills over the past one week. No chest pain. No dyspnea. - Related Data Home Medications Medication Instructions Recorded Confirmed Aspirin 81 mg PO DAILY 06/22/14 02/03/19 Lisinopril [Prinivil] 5 mg PO HS 06/22/14 02/03/19 Pravastatin Sodium [Pravachol] 80 mg PO HS 06/22/14 02/03/19 Allergies Allergy/AdvReac Type Severity Reaction Status Date / Time Penicillins Allergy Rash/Hives Verified 02/03/19 12:58 chocolate AdvReac Abdominal Uncoded 02/03/19 12:58 Pain Review of Systems ROS Statement: Those systems with pertinent positive or pertinent negative responses have been documented in the HPI. ROS Other: All systems not noted in ROS Statement are negative. Constitutional: Reports: chills Eyes: Denies: eye pain ENT: Denies: ear pain Respiratory: Reports: cough. Denies: dyspnea Cardiovascular: Denies: chest pain Endocrine: Reports: fatigue Gastrointestinal: Denies: abdominal pain Genitourinary: Denies: dysuria Musculoskeletal: Denies: back pain Skin: Denies: rash Neurological: Denies: headache, numbness, paresthesias, confusion Past Medical History Past Medical History: Coronary Artery Disease (CAD), Hyperlipidemia, Hypertension, Pneumonia Additional Past Medical History / Comment(s): SL Varicose Veins. SL MURMUR. Hiatal Hernia. SOB with Activity. Arthritis History of Any Multi-Drug Resistant Organisms: None Reported Past Surgical History: Adenoidectomy, Heart Catheterization With Stent, Tonsillectomy Additional Past Surgical History / Comment(s): HEART CATH X2, STENT X1 EACH TIME. Past Anesthesia/Blood Transfusion Reactions: No Reported Reaction Date of Last Stent Placement:: 02/2014 Past Psychological History: No Psychological Hx Reported Smoking Status: Former smoker Past Alcohol Use History: None Reported Past Drug Use History: None Reported - Past Family History Mother Family Medical History: No Reported History General Exam Limitations: no limitations General appearance: alert, in no apparent distress Head exam: Present: atraumatic Eye exam: Present: normal appearance, PERRL, EOMI. Absent: nystagmus ENT exam: Present: normal oropharynx Neck exam: Present: normal inspection. Absent: tenderness, meningismus Respiratory exam: Present: normal lung sounds bilaterally Cardiovascular Exam: Present: regular rate, normal rhythm, normal heart sounds Expanded Peripheral pulses: 2+: Radial (R), Radial (L), Posterior Tibialis (R), Posterior Tibialis (L) GI/Abdominal exam: Present: soft. Absent: distended, tenderness, pulsatile mass Extremities exam: Present: normal inspection, full ROM. Absent: tenderness, pedal edema, calf tenderness Neurological exam: Present: alert, oriented X3, CN II-XII intact. Absent: motor sensory deficit Expanded Neurological exam: Present: protecting the airway Patient oriented to: Present: person, place, time Cranial nerves: EOM's Intact: Normal, Facial Sensation: Normal Sensory exam: Upper Extremity Light Touch: Normal, Lower Extremity Light Touch: Normal Motor strength exam: RUE: 5, LUE: 5, RLE: 5, LLE: 5 Eye Response: (4) open spontaneously Motor Response: (6) obeys commands Verbal Response: (5) oriented Psychiatric exam: Present: normal affect, normal mood Skin exam: Present: normal color Course Vital Signs 02/03/19 02/03/19 12:38 15:20 Temperature 98.3 F Pulse Rate 62 Pulse Rate [ 71 Sitting Wedding Consultant] Pulse Rate [ 72 Standing Wedding Consultant ] Pulse Rate [ 61 Supine Wedding Consultant] Respiratory 18 18 Rate Blood Pressure 116/82 Blood Pressure 132/52 [Left Arm Sitting] Blood Pressure 127/72 [Left Arm Standing] Blood Pressure 114/67 [Left Arm Supine] O2 Sat by Pulse 99 98 Oximetry EKG Findings - EKG Comments: EKG Findings:: Sinus rhythm at 62. PVC present. AL 148. QRS 102. QT 418. QTC 424. Normal axis. Septal Q waves. Nonspecific ST-T. Medical Decision Making - Medical Decision Making Patient reevaluated without significant change. Patient updated on results and plan. Case was discussed in detail with Dr. Luis, who will admit covering for Dr. Mnceil. - Lab Data Result diagrams: 02/03/19 13:47 02/03/19 13:47 Lab Results 02/03/19 02/03/19 02/03/19 Range/Units 13:47 13:47 13:47 WBC 4.2 (3.8-10.6) k/uL RBC 5.30 (4.30-5.90) m/uL Hgb 15.9 (13.0-17.5) gm/dL Hct 47.5 (39.0-53.0) % MCV 89.6 (80.0-100.0) fL MCH 29.9 (25.0-35.0) pg MCHC 33.4 (31.0-37.0) g/dL RDW 13.4 (11.5-15.5) % Plt Count 158 (150-450) k/uL Neutrophils % 67 % Lymphocytes % 19 % Monocytes % 10 % Eosinophils % 1 % Basophils % 1 % Neutrophils # 2.8 (1.3-7.7) k/uL Lymphocytes # 0.8 L (1.0-4.8) k/uL Monocytes # 0.4 (0-1.0) k/uL Eosinophils # 0.0 (0-0.7) k/uL Basophils # 0.0 (0-0.2) k/uL PT 10.4 (9.0-12.0) sec INR 1.0 (<1.2) APTT 25.2 (22.0-30.0) sec D-Dimer 0.37 (<0.60) mg/L FEU Sodium 138 (137-145) mmol/L Potassium 3.9 (3.5-5.1) mmol/L Chloride 105 (98-107) mmol/L Carbon Dioxide 22 (22-30) mmol/L Anion Gap 11 mmol/L BUN 15 (9-20) mg/dL Creatinine 1.12 (0.66-1.25) mg/dL Est GFR (CKD-EPI)AfAm 76 (>60 ml/min/1.73 sqM) Est GFR (CKD-EPI)NonAf 66 (>60 ml/min/1.73 sqM) Glucose 108 H (74-99) mg/dL Calcium 9.3 (8.4-10.2) mg/dL Magnesium 1.7 (1.6-2.3) mg/dL Total Bilirubin 0.6 (0.2-1.3) mg/dL AST 33 (17-59) U/L ALT 39 (21-72) U/L Alkaline Phosphatase 63 (38-126) U/L Creatine Kinase 197 H (55-170) U/L Troponin I (0.000-0.034) ng/mL Total Protein 6.7 (6.3-8.2) g/dL Albumin 4.1 (3.5-5.0) g/dL Influenza Type A RNA (Not Detectd) Influenza Type B (PCR) (Not Detectd) 02/03/19 02/03/19 Range/Units 13:47 13:47 WBC (3.8-10.6) k/uL RBC (4.30-5.90) m/uL Hgb (13.0-17.5) gm/dL Hct (39.0-53.0) % MCV (80.0-100.0) fL MCH (25.0-35.0) pg MCHC (31.0-37.0) g/dL RDW (11.5-15.5) % Plt Count (150-450) k/uL Neutrophils % % Lymphocytes % % Monocytes % % Eosinophils % % Basophils % % Neutrophils # (1.3-7.7) k/uL Lymphocytes # (1.0-4.8) k/uL Monocytes # (0-1.0) k/uL Eosinophils # (0-0.7) k/uL Basophils # (0-0.2) k/uL PT (9.0-12.0) sec INR (<1.2) APTT (22.0-30.0) sec D-Dimer (<0.60) mg/L FEU Sodium (137-145) mmol/L Potassium (3.5-5.1) mmol/L Chloride (98-107) mmol/L Carbon Dioxide (22-30) mmol/L Anion Gap mmol/L BUN (9-20) mg/dL Creatinine (0.66-1.25) mg/dL Est GFR (CKD-EPI)AfAm (>60 ml/min/1.73 sqM) Est GFR (CKD-EPI)NonAf (>60 ml/min/1.73 sqM) Glucose (74-99) mg/dL Calcium (8.4-10.2) mg/dL Magnesium (1.6-2.3) mg/dL Total Bilirubin (0.2-1.3) mg/dL AST (17-59) U/L ALT (21-72) U/L Alkaline Phosphatase (38-126) U/L Creatine Kinase (55-170) U/L Troponin I <0.012 (0.000-0.034) ng/mL Total Protein (6.3-8.2) g/dL Albumin (3.5-5.0) g/dL Influenza Type A RNA Detected H (Not Detectd) Influenza Type B (PCR) Not Detected (Not Detectd) - Radiology Data Radiology results: report reviewed (Computed tomography scan of the brain reveals no acute process), image reviewed (Chest x-ray shows no acute process) Disposition Clinical Impression: Syncope, Influenza Disposition: ADMITTED IP TO THIS HOSP Is patient prescribed a controlled substance at d/c from ED?: No Referrals: Sameer Mcneil DO [Primary Care Provider] - 1-2 days Decision Time: 15:38
[2019-02-03 14:13] LABS: Basophils % (A) 1 %; Eosinophils % (A) 1 %; HCT 47.5 % (39.0-53.0); HGB 15.9 gm/dL (13.0-17.5); Lymphocytes # (A) 0.8 k/uL (1.0-4.8); Lymphocytes % (A) 19 %; MCH 29.9 pg (25.0-35.0); MCHC 33.4 g/dL (31.0-37.0); MCV 89.6 fL (80.0-100.0); Mean Platelet Volume 6.8; Monocytes # (A) 0.4 k/uL (0-1.0); Monocytes % (A) 10 %; Neutrophils # (A) 2.8 k/uL (1.3-7.7); Neutrophils % (A) 67 %; Platelet Count 158 k/uL (150-450); RDW 13.4 % (11.5-15.5); WBC 4.2 k/uL (3.8-10.6)
--- NOTE | 2019-02-03 14:18 | XR ---
EXAMINATION TYPE: XR chest 2V DATE OF EXAM: 02/03/2019 COMPARISON: Chest x-ray April 20, 2018. CT chest November 01, 2018 HISTORY: Syncope and weakness. Fever. TECHNIQUE: Frontal and lateral views of the chest are obtained on 4 images. FINDINGS: There is no focal air space opacity, pleural effusion, or pneumothorax seen. The cardiac silhouette size is within normal limits. The osseous structures are intact. IMPRESSION: No acute cardiopulmonary process on current study.
[2019-02-03 14:28] LABS: Albumin 4.1 g/dL (3.5-5.0); Calcium 9.3 mg/dL (8.4-10.2); Magnesium 1.7 mg/dL (1.6-2.3); Potassium 3.9 mmol/L (3.5-5.1); Total Bilirubin 0.6 mg/dL (0.2-1.3); Total Protein 6.7 g/dL (6.3-8.2)
[2019-02-03 14:31] LABS: D-Dimer 0.37 mg/L FEU (<0.60); Partial Thromboplastin Time 25.2 sec (22.0-30.0); Prothrombin Time 10.4 sec (9.0-12.0)
--- NOTE | 2019-02-03 14:33 | CT ---
EXAMINATION TYPE: CT brain wo con DATE OF EXAM: 02/03/2019 COMPARISON: None HISTORY: Syncopal episode. Complains of weakness CT DLP: 2138.[address] of the brain was performed. The ventricles, basal cisterns and sulci overlying the cerebral convexities demonstrate mild enlargem ent. There is no evidence for intracranial hemorrhage or sulcal effacement. There is decreased attenuation about the periventricular white matter and deep white matter of both c erebral hemispheres, compatible with chronic small vessel ischemia. Differential diagnosis does inclu de demyelination. No mass effects are seen.No midline shift. Osseous calvarium is intact. If symptoms persist consider MRI. IMPRESSION: 1. Age related atrophic and chronic small vessel ischemic change without acute intracranial process s een at this time.
[2019-02-03] MEDS ORDERED: NALOXONE 0.4 MG/ML 1 ML VIAL IV PRN (15:38)
[2019-02-03] MEDS ORDERED: ACETAMINOPHEN TAB 325 MG TAB PO PRN (15:38)
[2019-02-03 17:54] VITALS: BMI 21.2
[2019-02-03] MEDS: SODIUM CHLORIDE 0.9% 1,000 ML IV SCH (18:01)
[2019-02-03 20:19] LABS: Appearance,Urine Clear (Clear); Bilirubin,Urine Negative (Negative); Blood,Urine Negative (Negative); Color,Urine Yellow; Glucose,Urine (UA) Negative (Negative); Ketones,Urine 1+ (Negative); Leukocyte Esterase,Urine Negative (Negative); Mucus,Urine Moderate /hpf; Nitrite,Urine Negative (Negative); PH, Urine 5.5 (5.0-8.0); Protein,Urine 1+ (Negative); RBC,Urine 2 /hpf (0-5); Specific Gravity,Urine 1.028 (1.001-1.035); Squamous Epithelial Cell,Urine <1 /hpf (0-4); Urobilinogen,Urine <2.0 mg/dL (<2.0); WBC,Urine 3 /hpf (0-5)
[2019-02-03] MEDS ORDERED: LISINOPRIL 5 MG TAB PO SCH (22:45)
[2019-02-03] MEDS ORDERED: PRAVASTATIN SODIUM 80 MG TAB PO SCH (22:45)
[2019-02-03] MEDS: ENOXAPARIN 40 MG/0.4 ML SYRINGE SQ SCH (23:15)
--- NOTE | 2019-02-04 00:09 | HP ---
HISTORY AND PHYSICAL DATE OF ADMISSION AND SERVICE: 02/03/2019. PRESENTING COMPLAINT: Passed out. HISTORY OF PRESENTING COMPLAINT: This is a very pleasant 74-year-old patient of Dr. Mcneil whose chronic stable medical conditions include coronary artery disease with 2 stents in 2013, hypertension, hyperlipidemia, hiatal hernia, primary osteoarthritis. The patient 3 days ago felt unwell, started having cold and shivering. He called into work. He went down to [employer] and he was told he had no flu or pneumonia. He went home for the weekend, really did not feel like eating, just drank lemonade and stayed home. This morning he decided to run some chores in the store at [employer] and the patient kept feeling he was dizzy, about to pass out; a couple of times he went down to his knees so he would not actually pass out. When they were about to go out of the store, the patient decided to sit down on a bench and passed out temporarily. There was no chest pain or palpitations. No seizure activity. As stated, the patient had been feeling lightheaded. EMS was therefore called out. Patient was given IV fluids. He feels better this evening and actually had 2 servings of dinner. He did test positive for influenza A. He does feel a bit tired still. REVIEW OF SYSTEMS: CONSTITUTIONAL: Weak, tired, rundown. HEENT: As above. RESPIRATORY: Has a cough. CARDIOVASCULAR: No chest pain or palpitations. GASTROINTESTINAL: None. GENITOURINARY: None. MUSCULOSKELETAL: Arthritic pain in joints. DERMATOLOGICAL: None. HEMATOLOGICAL: None. LYMPHATICS: None. PSYCHIATRY: None. NEUROLOGICAL: No focal symptoms. PAST MEDICAL HISTORY: 1. Coronary artery disease with 2 stents in 2013. 2. Hypertension. 3. Hyperlipidemia. 4. Hiatal hernia. 5. Osteoarthritis. 6. Slight varicose veins. PAST SURGICAL HISTORY: 1. Adenoidectomy. 2. Cardiac cath with stent. 3. Tonsillectomy. SOCIAL HISTORY: The patient smoked a pipe for 10 to 15 years. Stopped in 1983. . Works as a machinist set up. Alcohol occasionally. FAMILY HISTORY: Reviewed; not pertinent to presentation. HOME MEDICATIONS: 1. Pravachol 80 mg at bedtime. 2. Lisinopril 5 mg at bedtime. 3. Aspirin 81 mg p.o. daily. ALLERGIES: CHOCOLATE and PENICILLIN. PHYSICAL EXAMINATION: VITAL SIGNS ON PRESENTATION: Temperature 98.3, pulse 62, respiration 18, blood pressure 116/82. No orthostatics. Pulse ox 99% on room air. GENERAL APPEARANCE: Average build. Lying in bed, tired-appearing. EYES: Pupils equal. Conjunctivae normal. HEENT: External appearance of nose and ears normal. Oral cavity normal. NECK: JVD not raised. Mass not palpable. RESPIRATORY: Effort normal. Lungs are clear. CARDIOVASCULAR: First and second sounds normal. No edema. ABDOMEN: Soft, non-tender. Liver and spleen not palpable. LYMPHATIC: No lymph node palpable in neck or axillae. PSYCHIATRY: Alert and oriented x3. Mood and affect normal. NEUROLOGICAL: Pupils equal. Cranial nerves grossly intact. Power and sensation grossly intact. INVESTIGATIONS: White count 4.2, hemoglobin 15.9, potassium 3.9. BUN and creatinine are normal. Troponin x2 negative. EKG tracing, personally reviewed by me, shows normal sinus rhythm with poor R-wave progression in anterior leads, PVCs present. Chest x-ray film, personally reviewed by me, shows no obvious infiltrates. ASSESSMENT: 1. This is a patient who started with fever and chills 3 days ago. He did not eat much over the weekend, then decided to go out, had episode of passing out, most likely vasovagal; could be hypotension from passing out. Does feel better with fluids. All of this is secondary to influenza A infection. Need to rule out any arrhythmia. Patient is on telemetry. 2. Coronary artery disease with prior history of stent. 3. Essential hypertension. 4. Hyperlipidemia. 5. Hiatal hernia. 6. Primary osteoarthritis. PLAN: Home medications are resumed. Serial cardiac enzymes are in place. Patient was put on telemetry. The patient is kept under observation. Care was discussed with the patient. Questions were answered. MMODL / IJN: [id number] /
[2019-02-04 04:17] VITALS: RESP 18
[2019-02-04] MEDS: SODIUM CHLORIDE 0.9% 1,000 ML IV SCH (05:21)
[2019-02-04] MEDS ORDERED: ASPIRIN 81 MG PO SCH (09:00)
[2019-02-04] MEDS: ENOXAPARIN 40 MG/0.4 ML SYRINGE SQ SCH (09:57)
--- NOTE | 2019-02-04 11:36 | P.CRDCN ---
History of Present Illness History of present illness: This is a pleasant 74-year-old male past medical history significant for coronary artery disease status post stent placement to the LAD 2013 most recent catheterization in 2015 revealing a widely patent stent with 20-30% nonobstructive plaque noted in the RCA and 35-40% plaque noted in the circumflex artery. He also has dyslipidemia and hypertension. He follows in the office w teresa Corona. We've asked to see him in consultation secondary to syncopal episode. He states starting midweek last week he started feeling significant fever, chills, cough and overall generalized fatigue. He went to the urgent care and told that he had no pneumonia or influenza. The weekend she continued to feel overall fatigue. He was at [employer] with his and while shopping he he started feeling lightheaded and as though he was going to pass out. He had to lower himself to the car multiple times throughout the shopping trip. When they were walking to her car he again started feeling like he was going to pass out since he sat down on a bench outside the store. While in a sitting position he did briefly lose consciousness and pass out. He denies palpitations, chest pain, shortness of breath, nausea, vomiting or diaphoresis associated with this episode. Per the patient this episode was very brief less than 1 minute. There was no evidence of seizure activity and he denies loss of bowel or bladder control. He states he has had decent oral intake of water however has not eaten in several days due to loss of appetite. Upon arrival to the emergency department he has been diagnosed with influenza A. EKG on arrival reveals sinus mechanism with poor R-wave progression and PVCs. Chest x-ray is negative for an acute cardiopulmonary process. CT of the brain is negative for an acute intracranial process. Laboratory data reviewed, WBC 4.2, hemoglobin 15.9, platelets 158, d-dimer 0.27, sodium 138, potassium 3.9, creatinine 1.12, magnesium 1.7, cardiac enzymes negative 3. Current cardiac medications include aspirin 81 mg daily, lisinopril 5 mg daily and pravastatin 80 mg daily. Most recent echocardiogram obtained in the office September 2018 reveals preserved left ventricular systolic function with ejection fraction 60%, Most recent stress test performed in the office September 2018 with a Lexiscan stress test with evidence of a fixed inferior defect with no acute reversibility. At the time of my exam: CONSTITUTIONAL: Complains of fever or chills. Complains of overall weakness and fatigue. EYES: Denies blurred vision. Denies vision changes. Denies eye pain. EARS, NOSE, MOUTH & THROAT: Denies headache. Denies sore throat. Denies ear pain. CARDIOVASCULAR: Denies chest pain. Denies shortness of breath. Denies orthopnea. Denies PND. Denies palpitations. RESPIRATORY: Denies cough. GASTROINTESTINAL: Denies abdominal pain. Denies diarrhea. Denies constipation. Denies nausea. Denies vomiting. MUSCULOSKELETAL: Denies myalgias. INTEGUMENTARY: Denies pruitis. Denies rash. NEUROLOGIC: Denies numbness. Denies tingling. Denies weakness. PSYCHIATRIC: Denies anxiety. Denies depression. ENDOCRINE: Denies fatigue. Denies weight change. Denies polydipsia. Denies po lyurina. GENITOURINARY: Denies burning, hematuria or urgency with micturation. HEMATOLOGIC: Denies history of anemia. Denies bleeding. Blood pressure 128/63 heart rate 71 afebrile maintaining oxygen saturation on room air GENERAL: This is a 74-year-old male in no apparent distress at the time of my examination. HEENT: Head is atraumatic, normocephalic. Pupils are equal, round. Sclerae anicteric. Conjunctivae are clear. Mucous membranes of the mouth are moist. Neck is supple. There is no jugular venous distention. No carotid bruit is heard. LUNGS: Clear to auscultation no wheezes, rales or rhonchi. No chest wall tenderness is noted on palpation or with deep breathing. HEART: Regular rate and rhythm with systolic ejection murmur at the base, no rubs or gallops. S1 and S2 heard. ABDOMEN: Soft, nontender. Bowel sounds are heard. No organomegaly noted. EXTREMITIES: No evidence of peripheral edema and no calf tenderness noted. VASCULAR: Radial and dorsalis pedis pulses palpated, no evidence of clubbing. NEUROLOGIC: Patient is awake, alert and oriented x3. ASSESSMENT Influenza A Syncopal episode History of coronary artery disease status post stent placement Hypertension Dyslipidemia PLAN An acute coronary event has been ruled out. Obtain 2-D echocardiogram and Doppler study to assess cardiac structure and function. Telemetry tracings have been unremarkable for an acute arrhythmia. Ongoing medical management. Symptoms of syncope most likely related to acute dehydration secondary to influenza A. No evidence of cardiogenic cause. Follow-up with Dr. Corona upon discharge. Thank you kindly for this consultation. Nurse Practitioner note has been reviewed, I agree with a documented findings and plan of care. Patient was seen and examined. Past Medical History Past Medical History: Coronary Artery Disease (CAD), Hyperlipidemia, Hypertension, Pneumonia Additional Past Medical History / Comment(s): SL Varicose Veins. SL MURMUR. Hiatal Hernia. SOB with Activity. Arthritis History of Any Multi-Drug Resistant Organisms: None Reported Past Surgical History: Adenoidectomy, Heart Catheterization With Stent, Tonsillectomy Additional Past Surgical History / Comment(s): HEART CATH X2, STENT X1 EACH TIME. Past Anesthesia/Blood Transfusion Reactions: No Reported Reaction Date of Last Stent Placement:: 02/2014 Past Psychological History: No Psychological Hx Reported Smoking Status: Former smoker Past Alcohol Use History: None Reported Additional Past Alcohol Use History / Comment(s): SMOKED PIPE 10-15 YEARS, QUIT 1983 Past Drug Use History: None Reported - Past Family History Mother Family Medical History: No Reported History Medications and Allergies Home Medications Medication Instructions Recorded Confirmed Type Aspirin 81 mg PO DAILY 06/22/14 02/03/19 History Lisinopril [Prinivil] 5 mg PO HS 06/22/14 02/03/19 History Pravastatin Sodium [Pravachol] 80 mg PO HS 06/22/14 02/03/19 History Allergies Allergy/AdvReac Type Severity Reaction Status Date / Time Penicillins Allergy Rash/Hives Verified 02/03/19 12:58 chocolate AdvReac Abdominal Uncoded 02/03/19 12:58 Pain Physical Exam Vitals: Vital Signs Temp Pulse Pulse Pulse Pulse Pulse Resp 02/04/19 07:49 02/04/19 04:00 97.7 F 70 18 02/04/19 03:59 70 16 02/04/19 00:00 70 16 02/03/19 23:15 98.3 F 70 16 02/03/19 20:00 97.9 F 70 16 02/03/19 18:04 16 02/03/19 18:02 97.6 F 68 16 02/03/19 17:33 98.3 F 78 18 02/03/19 17:16 78 18 02/03/19 16:30 74 18 02/03/19 15:20 71 72 61 18 02/03/19 12:38 98.3 F 62 18 BP BP BP BP BP Pulse Ox 02/04/19 07:49 97 02/04/19 04:00 123/63 97 02/04/19 03:59 02/04/19 00:00 02/03/19 23:15 116/59 95 02/03/19 20:00 127/63 99 02/03/19 18:04 02/03/19 18:02 143/70 100 02/03/19 17:33 137/71 97 02/03/19 17:16 137/71 97 02/03/19 16:30 126/78 02/03/19 15:20 132/52 127/72 114/67 98 02/03/19 12:38 116/82 99 Intake and Output 02/03/19 02/04/19 02/04/19 22:59 06:59 14:59 Intake Total 440 Balance 440 Intake: Amount of Fluid Infused ( 200 ml) Oral 240 Other: Voiding Method Toilet Toilet # Voids 2 Results 02/03/19 13:47 02/03/19 13:47 Cardiac Enzymes 02/03/19 02/03/19 02/03/19 Range/Units 13:47 13:47 20:43 AST 33 (17-59) U/L Troponin I <0.012 <0.012 (0.000-0.034) ng/mL 02/04/19 Range/Units 02:27 AST (17-59) U/L Troponin I <0.012 (0.000-0.034) ng/mL Coagulation 02/03/19 Range/Units 13:47 PT 10.4 (9.0-12.0) sec APTT 25.2 (22.0-30.0) sec CBC 02/03/19 Range/Units 13:47 WBC 4.2 (3.8-10.6) k/uL RBC 5.30 (4.30-5.90) m/uL Hgb 15.9 (13.0-17.5) gm/dL Hct 47.5 (39.0-53.0) % Plt Count 158 (150-450) k/uL Comprehensive Metabolic Panel 02/03/19 Range/Units 13:47 Sodium 138 (137-145) mmol/L Potassium 3.9 (3.5-5.1) mmol/L Chloride 105 (98-107) mmol/L Carbon Dioxide 22 (22-30) mmol/L BUN 15 (9-20) mg/dL Creatinine 1.12 (0.66-1.25) mg/dL Glucose 108 H (74-99) mg/dL Calcium 9.3 (8.4-10.2) mg/dL AST 33 (17-59) U/L ALT 39 (21-72) U/L Alkaline Phosphatase 63 (38-126) U/L Total Protein 6.7 (6.3-8.2) g/dL Albumin 4.1 (3.5-5.0) g/dL Current Medications Generic Name Dose Route Start Last Admin Trade Name Freq PRN Reason Stop Dose Admin Acetaminophen 650 mg 02/03/19 15:38 Tylenol Tab PO Q6HR PRN Mild Pain or Fever > 100.5 Aspirin 81 mg 02/04/19 09:00 Aspirin PO DAILY MARK Enoxaparin Sodium 40 mg 02/03/19 22:45 02/03/19 23:15 Lovenox SQ 40 mg DAILY MARK Administration Sodium Chloride 1,000 mls @ 75 mls/hr 02/03/19 15:45 02/04/19 05:21 Saline 0.9% IV 75 mls/hr .[id number] MARK Administration Lisinopril 5 mg 02/03/19 22:45 02/03/19 23:14 Zestril PO 5 mg HS MARK Administration Naloxone HCl 0.2 mg 02/03/19 15:38 Narcan IV Q2M PRN Opioid Reversal Pravastatin Sodium 80 mg 02/03/19 22:45 02/03/19 23:14 Pravachol PO 80 mg HS MARK Administration Intake and Output 02/03/19 02/04/19 02/04/19 22:59 06:59 14:59 Intake Total 440 Balance 440 Intake: Amount of Fluid Infused ( 200 ml) Oral 240 Other: Voiding Method Toilet Toilet # Voids 2 02/03/19 13:47 02/03/19 13:47
[2019-02-04 11:43] VITALS: BP 126/64; PULSE 69; TEMP 98.2
--- NOTE | 2019-02-04 13:06 | ECHOF ---
Referral Reason:syncope MEASUREMENTS -------- HEIGHT: 188.0 cm WEIGHT: 8.2 kg BP: RVIDd: 2.1 cm (< 3.3) IVSd: 1.6 cm (0.6 - 1.1) LVIDd: 3.0 cm (3.9 - 5.3) LVPWd: 1.6 cm (0.6 - 1.1) IVSs: 1.9 cm LVIDs: 2.3 cm LVPWs: 1.4 cm LA Diam: 3.1 cm (2.7 - 3.8) Ao Diam: 2.9 cm (2.0 - 3.7) AV Cusp: 2.0 cm (1.5 - 2.6) LA Diam: 3.2 cm (2.7 - 3.8) MV EXCURSION: 12.364 mm (> 18.000) MV EF SLOPE: 32 mm/s (70 - 150) EPSS: 0.3 cm MV E Garry: 0.56 m/s MV DecT: 272 ms MV A Garry: 0.88 m/s MV E/A Ratio: 0.64 AV maxP.06 mmHg AV meanP.41 mmHg RAP: 5.00 mmHg RVSP: 9.56 mmHg FINDINGS -------- Sinus rhythm. This was a technically adequate study. The left ventricular size is normal. There is severe concentric left ventricular hypertrophy. Ove rall left ventricular systolic function is normal with, an EF between 55 - 60 %. The right ventricle is normal in size. The left atrial size is normal. The right atrial size is normal. The aortic valve is trileaflet, and appears structurally normal. No aortic stenosis or regurgitation. The mitral valve leaflets are mildly thickened. Mild mitral regurgitation is present. Mild tricuspid regurgitation present. There is no evidence of pulmonary hypertension. The right v entricular systolic pressure, as measured by Doppler, is 9.56mmHg. There is no pulmonic regurgitation present. The aortic root size is normal. There is no pericardial effusion. CONCLUSIONS -------- 1. Sinus rhythm. 2. The left ventricular size is normal. 3. There is severe concentric left ventricular hypertrophy. 4. Overall left ventricular systolic function is normal with, an EF between 55 - 60 %. 5. The left atrial size is normal. 6. The aortic valve is trileaflet, and appears structurally normal. No aortic stenosis or regurgitati on. 7. Mild mitral regurgitation is present. 8. Mild tricuspid regurgitation present. 9. There is no evidence of pulmonary hypertension. 10. There is no pulmonic regurgitation present. 11. The aortic root size is normal. 12. There is no pericardial effusion. HEATING MECHANIC: Misti Roper RDCS
--- NOTE | 2019-02-07 06:16 | DS ---
DISCHARGE SUMMARY DATE OF ADMISSION: 02/03/2019 DATE OF DISCHARGE: 02/04/2019 FINAL DIAGNOSES: 1. Syncope from dehydration. 2. Acute influenza A upper respiratory tract infection. 3. Coronary artery disease, prior history of stent. 4. Essential hypertension. 5. Hyperlipidemia. 6. Hiatal hernia. 7. Primary osteoarthritis. HOSPITAL COURSE: This patient presented with fever, chills, not feeling well at home, was home for the weekend a couple of days and went out, nearly passed out. He felt to be dehydrated, giving IV fluids to which he felt much better, put on Tamiflu. The patient was positive for influenza A. Telemetry was negative. A 2-D echocardiogram showed EF of 55% to 60%. EKG showed sinus rhythm. The patient is cleared by Cardiology. CONSULTATION: Dr. Corona from Cardiology. The patient is feeling much better by the time of discharge after good IV hydration. On examination, temperature 98.3, pulse 78, respiratory 18, blood pressure 137/71, pulse ox 99% on room air. Lungs are clear. CARDIOVASCULAR: First and second . Patient is up and about. INVESTIGATIONS: Troponin is negative. DISCHARGE MEDICATIONS: 1. Aspirin 81 mg a day. 2. Prinivil 5 mg at bedtime. 3. Pravachol 80 mg at bedtime. Follow up with Dr. Mcneil in 2 to 3 days. MMBOBL / IJN: [id number] /
== END 2019-02-04 17:10 | disposition home or self-care (01) ==
LOC: EC 12:32 → 1SOBS 15:38
PROVIDERS: ADMIT Hospitalist; ATTEND Hospitalist
DX: J10.1 Influenza due to other identified influenza virus with other respiratory manifestations (principal); R55 Syncope and collapse; E86.0 Dehydration; I25.10 Atherosclerotic heart disease of native coronary artery without angina pectoris; I10 Essential (primary) hypertension; E78.5 Hyperlipidemia, unspecified; K44.9 Diaphragmatic hernia without obstruction or gangrene; M19.91 Primary osteoarthritis, unspecified site; I49.3 Ventricular premature depolarization; Z79.82 Long term (current) use of aspirin; Z79.899 Other long term (current) drug therapy; Z95.5 Presence of coronary angioplasty implant and graft; Z87.891 Personal history of nicotine dependence
CPT/HCPCS: 96372 ×2; 96360; 96361; 99285; 36415; 94760; 93005; 93306; 85379; 80053; 82550; 83735; 84484 ×2; 85025; 85610; 85730; 81001; 87502; 71046; 70450; G0378 ×2; J1650 ×2

== ENCOUNTER → 2019-03-06 | Outpatient (CLI) | payer MEDICARE ==
[2019-03-06 11:05] LABS: LDL Cholesterol,Calculated 103.2 mg/dL (0.0-131.0); VLDL Calculation 30.8 mg/dL (5.00-40.00)
== END | disposition home or self-care (01) ==
LOC: LABWHC1 07:03
PROVIDERS: ATTEND Nurse Practitioner Adult Health
DX: E78.2 Mixed hyperlipidemia (principal)
CPT/HCPCS: 36415; 80061; 84450; 84460

== ENCOUNTER → 2019-06-20 | Outpatient (CLI) | payer MEDICARE | END | disposition home or self-care (01) | LOC: LABWHC1 10:33 | PROVIDERS: ATTEND Nurse Practitioner Adult Health | DX: E78.2 Mixed hyperlipidemia (principal) | CPT/HCPCS: 36415; 80061; 84450; 84460 ==

== ENCOUNTER 2019-06-29 10:02 | Emergency (ER) | payer MEDICARE ==
--- NOTE | 2019-06-29 10:36 | ED ---
Extremity Problem HPI - General Chief complaint: Extremity Problem,Nontraumatic Stated complaint: feet swelling Time Seen by Provider: 06/29/19 10:14 Source: patient, RN notes reviewed Mode of arrival: ambulatory Limitations: no limitations - History of Present Illness Initial comments: 74-year-old male with a history of heart disease with surgery in the past who states he's had edema to his lower extremities for the past 2 days and now he feels bloated. 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 No other complaints or modifying factors no recent trips no changes in medications he is currently not on any diuretics. MD Complaint: extremity swelling - Related Data Home Medications Medication Instructions Recorded Confirmed Aspirin 81 mg PO DAILY 06/22/14 06/29/19 Pravastatin Sodium [Pravachol] 80 mg PO HS 06/22/14 06/29/19 Ubidecarenone [Co Q-10] 100 mg PO BID 06/29/19 06/29/19 amLODIPine [Norvasc] 5 mg PO HS 06/29/19 06/29/19 Previous Rx's Medication Instructions Recorded Furosemide [Lasix] 10 mg PO DAILY #5 tab 06/29/19 Allergies Allergy/AdvReac Type Severity Reaction Status Date / Time Penicillins Allergy Rash/Hives Verified 06/29/19 11:25 chocolate AdvReac Abdominal Uncoded 06/29/19 10:08 Pain Review of Systems ROS Statement: Those systems with pertinent positive or pertinent negative responses have been documented in the HPI. ROS Other: All systems not noted in ROS Statement are negative. Past Medical History Past Medical History: Coronary Artery Disease (CAD), Hyperlipidemia, Hypertension, Pneumonia Additional Past Medical History / Comment(s): SL Varicose Veins. SL MURMUR. Hiatal Hernia. SOB with Activity. Arthritis History of Any Multi-Drug Resistant Organisms: None Reported Past Surgical History: Adenoidectomy, Heart Catheterization With Stent, To nsillectomy Additional Past Surgical History / Comment(s): HEART CATH X2, STENT X1 EACH TIME. Past Anesthesia/Blood Transfusion Reactions: No Reported Reaction Date of Last Stent Placement:: 02/2014 Past Psychological History: No Psychological Hx Reported Smoking Status: Former smoker Past Alcohol Use History: None Reported Past Drug Use History: None Reported - Past Family History Mother Family Medical History: No Reported History General Exam - General Exam Comments Initial Comments: This is a well-developed well-nourished awake alert oriented 3 male Limitations: no limitations General appearance: alert, in no apparent distress Head exam: Present: atraumatic, normocephalic, normal inspection Eye exam: Present: normal appearance, PERRL, EOMI. Absent: scleral icterus, conjunctival injection, periorbital swelling ENT exam: Present: normal exam, mucous membranes moist Neck exam: Present: normal inspection. Absent: tenderness, meningismus, lymphadenopathy Respiratory exam: Present: normal lung sounds bilaterally. Absent: respiratory distress, wheezes, rales, rhonchi, stridor Cardiovascular Exam: Present: regular rate, normal rhythm, normal heart sounds. Absent: systolic murmur, diastolic murmur, rubs, gallop, clicks GI/Abdominal exam: Present: soft, normal bowel sounds, other (Distention of the abdomen no tenderness palpation no guarding rebound masses or bruits). Absent: distended, tenderness, guarding, rebound, rigid Extremities exam: Present: normal inspection, full ROM, normal capillary refill, pedal edema. Absent: tenderness, joint swelling, calf tenderness Back exam: Present: normal inspection Neurological exam: Present: alert, oriented X3, CN II-XII intact Psychiatric exam: Present: normal affect, normal mood Skin exam: Present: warm, dry, intact, normal color. Absent: rash Course Vital Signs 06/29/19 10:06 Temperature 97.5 F L Pulse Rate 69 Respiratory 16 Rate Blood Pressure 143/75 O2 Sat by Pulse 96 Oximetry Medical Decision Making - Medical Decision Making The patient is asymptomatic other than the presenting complaints this time no further workup is indicated this time he'll be placed on a short course of diuretics we did discuss elevation of his legs as well as support stockings. Will follow-up with his doctor return when necessary - Lab Data Result diagrams: 06/29/19 10:41 06/29/19 10:41 Lab Results 06/29/19 06/29/19 06/29/19 Range/Units 10:41 10:41 10:41 WBC 6.0 (3.8-10.6) k/uL RBC 4.78 (4.30-5.90) m/uL Hgb 13.8 (13.0-17.5) gm/dL Hct 42.9 (39.0-53.0) % MCV 89.6 (80.0-100.0) fL MCH 28.9 (25.0-35.0) pg MCHC 32.2 (31.0-37.0) g/dL RDW 14.0 (11.5-15.5) % Plt Count 235 (150-450) k/uL Neutrophils % 68 % Lymphocytes % 21 % Monocytes % 5 % Eosinophils % 3 % Basophils % 1 % Neutrophils # 4.1 (1.3-7.7) k/uL Lymphocytes # 1.3 (1.0-4.8) k/uL Monocytes # 0.3 (0-1.0) k/uL Eosinophils # 0.2 (0-0.7) k/uL Basophils # 0.0 (0-0.2) k/uL Sodium 140 (137-145) mmol/L Potassium 4.4 (3.5-5.1) mmol/L Chloride 107 (98-107) mmol/L Carbon Dioxide 25 (22-30) mmol/L Anion Gap 8 mmol/L BUN 18 (9-20) mg/dL Creatinine 0.98 (0.66-1.25) mg/dL Est GFR (CKD-EPI)AfAm 90 (>60 ml/min/1.73 sqM) Est GFR (CKD-EPI)NonAf 77 (>60 ml/min/1.73 sqM) Glucose 96 (74-99) mg/dL Calcium 9.5 (8.4-10.2) mg/dL Magnesium 2.0 (1.6-2.3) mg/dL Total Bilirubin 0.8 (0.2-1.3) mg/dL AST 37 (17-59) U/L ALT 56 (21-72) U/L Alkaline Phosphatase 80 (38-126) U/L Creatine Kinase 177 H (55-170) U/L Troponin I (0.000-0.034) ng/mL NT-Pro-B Natriuret Pep 111 pg/mL Total Protein 6.9 (6.3-8.2) g/dL Albumin 4.3 (3.5-5.0) g/dL 06/29/19 Range/Units 10:41 WBC (3.8-10.6) k/uL RBC (4.30-5.90) m/uL Hgb (13.0-17.5) gm/dL Hct (39.0-53.0) % MCV (80.0-100.0) fL MCH (25.0-35.0) pg MCHC (31.0-37.0) g/dL RDW (11.5-15.5) % Plt Count (150-450) k/uL Neutrophils % % Lymphocytes % % Monocytes % % Eosinophils % % Basophils % % Neutrophils # (1.3-7.7) k/uL Lymphocytes # (1.0-4.8) k/uL Monocytes # (0-1.0) k/uL Eosinophils # (0-0.7) k/uL Basophils # (0-0.2) k/uL Sodium (137-145) mmol/L Potassium (3.5-5.1) mmol/L Chloride (98-107) mmol/L Carbon Dioxide (22-30) mmol/L Anion Gap mmol/L BUN (9-20) mg/dL Creatinine (0.66-1.25) mg/dL Est GFR (CKD-EPI)AfAm (>60 ml/min/1.73 sqM) Est GFR (CKD-EPI)NonAf (>60 ml/min/1.73 sqM) Glucose (74-99) mg/dL Calcium (8.4-10.2) mg/dL Magnesium (1.6-2.3) mg/dL Total Bilirubin (0.2-1.3) mg/dL AST (17-59) U/L ALT (21-72) U/L Alkaline Phosphatase (38-126) U/L Creatine Kinase (55-170) U/L Troponin I <0.012 (0.000-0.034) ng/mL NT-Pro-B Natriuret Pep pg/mL Total Protein (6.3-8.2) g/dL Albumin (3.5-5.0) g/dL - EKG Data -: EKG Interpreted by Me EKG shows normal: sinus rhythm (Neuro sinus rhythm a 65. Interval 134 QRS duration 106 QT since QTC 410/426 nonspecific septal changes.) - Radiology Data Radiology results: report reviewed (I did review the imaging and report no acute findings.), image reviewed Disposition Clinical Impression: Peripheral edema Disposition: HOME SELF-CARE Condition: Good Instructions (If sedation given, give patient instructions): Leg Edema (ED) Additional Instructions: Elevate your legs to 3 times a day for 15-20 minutes, wear support stockings, follow-up with her doctor Prescriptions: Furosemide [Lasix] 10 mg PO DAILY #5 tab Is patient prescribed a controlled substance at d/c from ED?: No Referrals: Sameer Mcneil DO [Primary Care Provider] - 1-2 days
[2019-06-29 10:54] LABS: Basophils % (A) 1 %; Eosinophils # (A) 0.2 k/uL (0-0.7); Eosinophils % (A) 3 %; HCT 42.9 % (39.0-53.0); HGB 13.8 gm/dL (13.0-17.5); Lymphocytes # (A) 1.3 k/uL (1.0-4.8); Lymphocytes % (A) 21 %; MCH 28.9 pg (25.0-35.0); MCHC 32.2 g/dL (31.0-37.0); MCV 89.6 fL (80.0-100.0); Mean Platelet Volume 6.5; Monocytes # (A) 0.3 k/uL (0-1.0); Monocytes % (A) 5 %; Neutrophils # (A) 4.1 k/uL (1.3-7.7); Neutrophils % (A) 68 %; Platelet Count 235 k/uL (150-450); RBC 4.78 m/uL (4.30-5.90)
[2019-06-29 11:02] LABS: Albumin 4.3 g/dL (3.5-5.0); Calcium 9.5 mg/dL (8.4-10.2); Potassium 4.4 mmol/L (3.5-5.1); Total Bilirubin 0.8 mg/dL (0.2-1.3); Total Protein 6.9 g/dL (6.3-8.2)
--- NOTE | 2019-06-29 11:16 | XR ---
EXAMINATION TYPE: XR chest 2V DATE OF EXAM: 06/29/2019 HISTORY: cough. REFERENCE: Previous study dated 02/03/2019. FINDINGS: The lungs are clear. Pleural spaces are clear. The heart is not enlarged. IMPRESSION: NO ACTIVE INTRATHORACIC DISEASE.
[2019-06-29 12:40] VITALS: BP 132/79; PULSE 60; RESP 18; TEMP 98.1
== END 2019-06-29 12:44 | disposition home or self-care (01) ==
LOC: EC 10:02
DX: R60.0 Localized edema (principal); R14.0 Abdominal distension (gaseous); R06.00 Dyspnea, unspecified; I25.10 Atherosclerotic heart disease of native coronary artery without angina pectoris; E78.5 Hyperlipidemia, unspecified; I10 Essential (primary) hypertension; M19.90 Unspecified osteoarthritis, unspecified site; Z87.891 Personal history of nicotine dependence; Z88.0 Allergy status to penicillin; Z91.018 Allergy to other foods; Z79.82 Long term (current) use of aspirin; Z79.899 Other long term (current) drug therapy; Z95.5 Presence of coronary angioplasty implant and graft
CPT/HCPCS: 36415; 71046; 80053; 82550; 83735; 83880; 84484; 85025; 93005; 99284

== ENCOUNTER 2019-07-09 11:42 | Day surgery (SDC) | payer MEDICARE ==
[2019-07-07 08:56] VITALS: BMI 23.7
[~2019-07-09 11:42] MED LIST: ALPRAZolam 0.25 MG TAB PO PRN; ALPRAZolam 0.5 MG TAB PO PRN; ASPIRIN 325 MG TAB PO STA; ATORVASTATIN 80 MG TAB PO STA; NITROGLYCERIN SL TABS 0.4 MG TAB SUBLINGUAL PRN; SODIUM CHLORIDE 0.9% 1,000 ML in EMPTY BAG 1 BAG IV ONE
[2019-07-09] MEDS ORDERED: SODIUM CHLORIDE 0.9% 1,000 ML IV ONE (12:40)
[2019-07-09] MEDS ORDERED: fentaNYL (PF) 50 MCG/ML 2 ML AMP ONE (13:17)
[2019-07-09] MEDS ORDERED: HEPARIN SODIUM 1,000 UN/ML (10ML VL) ONE (13:17)
[2019-07-09] MEDS ORDERED: VERAPAMIL 2.5 MG/ML 2 ML AMP ONE (13:17)
[2019-07-09] MEDS ORDERED: LIDOCAINE 1% INJ 10MG/ML (20 ML MDV) ONE (13:17)
[2019-07-09] MEDS ORDERED: fentaNYL (PF) 50 MCG/ML 2 ML AMP IVP ONE (13:30)
[2019-07-09] MEDS ORDERED: LIDOCAINE 1% INJ 10MG/ML (20 ML MDV) SQ ONE (13:31)
[2019-07-09] MEDS ORDERED: VERAPAMIL SYRINGE (5 MG/10 ML) INTRAARTER ONE (13:33)
[2019-07-09] MEDS ORDERED: HEPARIN SODIUM 1,000 UN/ML (10ML VL) IV ONE (13:40)
[2019-07-09] MEDS ORDERED: IOPAMIDOL-370 50ML BTL INJ ONE (13:44)
[2019-07-09] MEDS ORDERED: IOPAMIDOL-370 100ML BTL INJ ONE (13:44)
[2019-07-09] MEDS ORDERED: RX INFO: IV CONTRAST WAS GIVEN 1 EACH MISC MISCELLANE PRN (13:58)
[2019-07-09] MEDS ORDERED: SODIUM CHLORIDE 0.9% 1,000 ML IV SCH (14:00)
[2019-07-09 16:34] VITALS: BP 132/70; PULSE 67; RESP 18; TEMP 97.6
--- NOTE | 2019-07-09 17:03 | CC ---
CARDIAC CATHETERIZATION REPORT Mr. Burks is a 74-year-old male with known history of coronary artery disease, hypertension, hyperlipidemia, who has been complaining of progressive symptoms of chest discomfort with physical activity. In view of that, recommendation made regarding cardiac catheterization. The procedure as well as risks and complications were discussed with the patient who is in full understanding and agreement. PROCEDURE: Patient was brought to the industrial laborer in a fasting state, after receiving fentanyl and Benadryl and achieving moderate conscious sedated state. Using Xylocaine anesthesia and Seldinger technique a 6-Swazi sheath was introduced in the right radial artery. Selective right and left coronary angiography were performed using 5-Swazi 3 and half bend right and left Fernando catheter. Multiple views of the coronary arteries including hemiaxial views were obtained. Following that a 5-Swazi tight pigtail catheter was introduced into the left ventricle and a 30 degree DESOUZA view of the left ventricle was obtained. Following that, catheter and sheath were removed. Hemostasis was obtained with deployment of a TR band. There was no immediate complication. Patient is returned to his room in stable condition. Of note, the patient received 5000 units of intravenous heparin as well as intra-arterial verapamil. FINDINGS: Left main: This is a short size vessel bifurcating left circumflex, left anterior descending artery, left main coronary artery is without any significant obstructive coronary artery disease. Left anterior descending artery: This is a large-sized vessel reaching towards the apex with a wraparound apex segment giving rise to two diagonal branches in the proximal and mid segment. The left anterior descending artery stented area in the proximal and mid area has mild intimal restenosis of 10% to 20% without any evidence of high-grade stenosis. Left circumflex: This is a large nondominant vessel giving rise to a branching obtuse marginal branch. The left circumflex prior to the obtuse marginal branch has intimal disease of 30% to 40% without any evidence of high-grade stenosis. Right coronary artery: This is a large dominant vessel bifurcating distally into the PDA and posterolateral segment and branches. The right coronary artery in mid segment has a 20% to 30% plaque. The rest of the vessel has no high-grade stenosis. LEFT VENTRICULOGRAM: Left ventriculogram was performed in 30 degree DESOUZA view and revealed normal left ventricular size and systolic function. Ejection fraction 60%. There was arrhythmia induced mitral regurgitation. HEMODYNAMICS: There was no gradient across the aortic valve. The left ventricular end-diastolic pressure was 24-28 mmHg. CONCLUSION: 1. Mild triple-vessel coronary artery disease. 2. Normal left ventricular size and systolic function. 3. No evidence of restenosis at the site of the prior stenting. RECOMMENDATIONS: In view of findings and anatomy, I have recommend continued medical therapy with aggressive coronary risk modifications that have been initiated. Those findings and recommendation were discussed with the patient and he was in full understanding and agreement. Duration of procedure is 15 minutes. VIET / ANGIEN: [id number] /
[2019-07-09] MEDS ORDERED: NON-FORMULARY DRUG (Ubidecarenone [Co Q-10] 100 MG) PO SCH (21:00)
[2019-07-09] MEDS ORDERED: ATORVASTATIN 80 MG TAB PO SCH (21:00)
[2019-07-09] MEDS ORDERED: LOSARTAN 50 MG TAB PO SCH (21:00)
[2019-07-10] MEDS ORDERED: ASPIRIN 81 MG PO SCH (09:00)
[2019-07-10] MEDS ORDERED: ISOSORBIDE MONONITRATE ER 30 MG TAB.ER.24H PO SCH (09:00)
== END 2019-07-09 19:18 | disposition home or self-care (01) ==
LOC: CATHCVL 11:42 → 1SOBS 15:15 → CATHCVL 19:18
PROVIDERS: ATTEND Internal Medicine Interventional Cardiology
DX: I25.10 Atherosclerotic heart disease of native coronary artery without angina pectoris (principal); I10 Essential (primary) hypertension; Z95.5 Presence of coronary angioplasty implant and graft; Z87.891 Personal history of nicotine dependence; Z79.82 Long term (current) use of aspirin; Z79.899 Other long term (current) drug therapy; Z88.0 Allergy status to penicillin; E78.2 Mixed hyperlipidemia
CPT/HCPCS: 93458; J2001; J3010; J1644; Q9967 ×2

== ENCOUNTER → 2019-12-23 | Outpatient (CLI) | payer MEDICARE ==
[2019-12-23 18:09] LABS: African American GFR (CKD) 86.8 (60.0-200.0); Albumin 4.9 g/dL (3.80-4.90); Albumin/Globulin Ratio 2.88 (1.60-3.17); Anion Gap 8.4 mmol/L (4.00-12.00); Calcium 9.7 mg/dL (8.7-10.3); Carbon Dioxide 28.6 mmol/L (21.6-31.8); Chol/HDL Ratio 2.81; Globulin 1.7 g/dL (1.6-3.3); Non-African American GFR(CKD) 74.9 (60.0-200.0); Potassium 4.7 mmol/L (3.5-5.5); Total Protein 6.6 g/dL (6.2-8.2)
== END ==
LOC: LABWHC1 10:21
PROVIDERS: ATTEND Internal Medicine Interventional Cardiology
DX: E78.2 Mixed hyperlipidemia (principal)
CPT/HCPCS: 36415; 80053; 80061

== ENCOUNTER → 2020-07-22 | Outpatient (CLI) | payer MEDICARE ==
[2020-07-22 17:01] LABS: Chol/HDL Ratio 2.6; LDL Cholesterol,Calculated 51.2 mg/dL (0.0-131.0); VLDL Calculation 12.8 mg/dL (5.00-40.00)
== END | disposition home or self-care (01) ==
LOC: LABWHC1 10:15
PROVIDERS: ATTEND Internal Medicine Interventional Cardiology
DX: E78.2 Mixed hyperlipidemia (principal)
CPT/HCPCS: 36415; 80061

== ENCOUNTER → 2021-01-20 | Outpatient (CLI) | payer MEDICARE ==
[2021-01-20 11:37] LABS: Albumin 4.2 g/dL (3.80-4.90); Albumin/Globulin Ratio 1.83 (1.60-3.17); Anion Gap 6.2 mmol/L (4.00-12.00); Carbon Dioxide 28.8 mmol/L (21.6-31.8); Chol/HDL Ratio 3.02; Globulin 2.3 g/dL (1.6-3.3); LDL Cholesterol,Calculated 66.8 mg/dL (0.0-131.0); Non-African American GFR(CKD) 49.1 (60.0-200.0); Potassium 4.6 mmol/L (3.5-5.5); Total Bilirubin 1.1 mg/dL (0.3-1.2); Total Protein 6.5 g/dL (6.2-8.2); VLDL Calculation 20.2 mg/dL (5.00-40.00)
== END | disposition home or self-care (01) ==
LOC: LABWHC1 07:30
PROVIDERS: ATTEND Nurse Practitioner Adult Health
DX: E78.2 Mixed hyperlipidemia (principal); I10 Essential (primary) hypertension
CPT/HCPCS: 36415; 80053; 80061

== ENCOUNTER → 2021-02-18 | Outpatient (CLI) | payer MEDICARE ==
[2021-02-18 18:12] LABS: African American GFR (CKD) 62.3 (60.0-200.0); Anion Gap 10.1 mmol/L (4.00-12.00); BUN/Creat Ratio 17.69 Ratio (12.00-20.00); Calcium 9.5 mg/dL (8.7-10.3); Carbon Dioxide 24.9 mmol/L (21.6-31.8); Non-African American GFR(CKD) 53.8 (60.0-200.0); Potassium 4.7 mmol/L (3.5-5.5)
== END | disposition home or self-care (01) ==
LOC: LABWHC1 08:40
PROVIDERS: ATTEND Nurse Practitioner Adult Health
DX: N18.9 Chronic kidney disease, unspecified (principal)
CPT/HCPCS: 36415; 80048

== ENCOUNTER → 2021-05-03 | Outpatient (CLI) | payer MEDICARE ==
[2021-05-03 20:17] LABS: Albumin 4.6 g/dL (3.80-4.90); Albumin/Globulin Ratio 2.09 (1.60-3.17); Anion Gap 9.5 mmol/L (4.00-12.00); BUN/Creat Ratio 13.57 Ratio (12.00-20.00); Calcium 9.6 mg/dL (8.7-10.3); Carbon Dioxide 25.5 mmol/L (21.6-31.8); Chol/HDL Ratio 3.46; Globulin 2.2 g/dL (1.6-3.3); Non-African American GFR(CKD) 49.1 (60.0-200.0); Potassium 5.2 mmol/L (3.5-5.5); Total Bilirubin 1.1 mg/dL (0.3-1.2); Total Protein 6.8 g/dL (6.2-8.2)
== END | disposition home or self-care (01) ==
LOC: LABWHC1 05-02 10:28
PROVIDERS: ATTEND Internal Medicine Interventional Cardiology
DX: E78.2 Mixed hyperlipidemia (principal)
CPT/HCPCS: 36415; 80053; 80061

== ENCOUNTER 2021-05-11 07:23 | Day surgery (SDC) | payer MEDICARE ==
[2021-05-09 13:35] VITALS: BMI 24.9
[~2021-05-11 07:23] MED LIST changes: +HEPARIN SODIUM,PORCINE 10,000 UNIT in SODIUM CHLORIDE 0.9% 1,000 ML IRRIGATION PRN; +HEPARIN SODIUM,PORCINE 2,500 UNIT in SODIUM CHLORIDE 0.9% 250 ML IRRIGATION PRN
[2021-05-11] MEDS ORDERED: SODIUM CHLORIDE 0.9% 1,000 ML IV SCH ×3 (07:30→10:30)
[2021-05-11] MEDS ORDERED: SODIUM CHLORIDE 0.9% 1,000 ML IV ONE (07:32)
[2021-05-11 07:44] VITALS: RESP 18; TEMP 98.5
[2021-05-11 07:54] LABS: Basophils % (A) 1 %; Eosinophils # (A) 0.2 k/uL (0-0.7); Eosinophils % (A) 2 %; HGB 14.9 gm/dL (13.0-17.5); Lymphocytes # (A) 2.1 k/uL (1.0-4.8); Lymphocytes % (A) 22 %; MCH 30.8 pg (25.0-35.0); MCHC 33.9 g/dL (31.0-37.0); MCV 90.8 fL (80.0-100.0); Mean Platelet Volume 7.1; Monocytes # (A) 0.8 k/uL (0-1.0); Monocytes % (A) 8 %; Neutrophils # (A) 6.3 k/uL (1.3-7.7); Neutrophils % (A) 66 %; Platelet Count 224 k/uL (150-450); RBC 4.84 m/uL (4.30-5.90); RDW 13.6 % (11.5-15.5); WBC 9.6 k/uL (3.8-10.6)
[2021-05-11] MEDS ORDERED: fentaNYL (PF) 50 MCG/ML 2 ML AMP ONE (09:22)
[2021-05-11] MEDS ORDERED: fentaNYL (PF) 50 MCG/ML 2 ML AMP IV ONE (09:47)
[2021-05-11] MEDS ORDERED: LIDOCAINE 1% INJ 10MG/ML (20 ML MDV) SQ ONE (09:52)
[2021-05-11] MEDS ORDERED: VERAPAMIL SYRINGE (5 MG/10 ML) INTRAARTER ONE (09:55)
[2021-05-11] MEDS ORDERED: IOPAMIDOL-370 125ML BTL INJ ONE (10:07)
[2021-05-11] MEDS ORDERED: RX INFO: IV CONTRAST WAS GIVEN 1 EACH MISC MISCELLANE PRN (10:24)
--- NOTE | 2021-05-11 13:08 | CC ---
CARDIAC CATHETERIZATION REPORT Mr. Burks is a 76-year-old male with history of coronary artery disease status post stenting of the LAD in 2014, history of hyperlipidemia, who has been complaining of episode of chest discomfort. He recently underwent a myocardial perfusion imaging that revealed evidence of inducible ischemia. In view of that, recommendation made regarding cardiac catheterization. The procedure, risks and complications were discussed with the patient who is in full understanding and agreement. PROCEDURE: Patient was brought to the clinical genetics laboratory chief in a fasting semisedated state. After receiving fentanyl and Benadryl and achieving moderate conscious sedated state using Xylocaine anesthesia and Seldinger technique, 6-Marshallese sheath was introduced in the right radial artery. Selective right and left coronary angiography performed using 5-Marshallese 3.5 bend right and left Fernando catheter. Multiple views of the coronary arteries including hemiaxial views were obtained. Following that, 5-Marshallese tight pigtail catheter was introduced into the left ventricle and a 30-degree DESOUZA view of the left ventricle was obtained. Following that, catheters and sheaths were removed. Hemostasis was obtained with deployment of TR band. There were no immediate complications. Patient is returned to his room in stable condition. Of note, the patient received 5000 units of intravenous heparin as well as intra-arterial verapamil. FINDINGS: FLUOROSCOPY: There is calcification involving all the coronary arteries. 1. LEFT MAIN: This is a large-sized vessel, bifurcating into left circumflex, left anterior descending artery, left main coronary artery has no evidence of high-grade stenosis. 2. LEFT ANTERIOR DESCENDING CORONARY ARTERY: This is a large-sized vessel reaching to the apex with a wraparound apex segment. The stented segment of the LAD proximal and mid are patent and gives rise to 2 diagonal branches. The LAD has a mild disease proximal 20-30%. There is a segment of intramyocardial bridging of mild degree in the mid segment. The rest of the vessel has no high-grade stenosis. 3. LEFT CIRCUMFLEX: This is a nondominant vessel, large in caliber giving rise to 2 obtuse marginal branches. The left circumflex proximally has intimal disease of 30% to 40% involving both obtuse marginal branch without any evidence of high-grade stenosis. 4. RIGHT CORONARY ARTERY: This is a large dominant vessel bifurcating into PDA and posterolateral segment and branches. The right coronary artery in the mid segment has diffuse intimal disease with area up to 30%. There is a 50% to 60% plaque at the takeoff of the PDA. The rest of the vessel has no high-grade stenosis. 5. LEFT VENTRICULOGRAM: Left ventriculogram was performed in 30-degree DESOUZA view and revealed normal left ventricular size and systolic function. Ejection fraction is 60%. There was no significant mitral regurgitation. HEMODYNAMICS: There was no gradient across the aortic valve. The left ventricular end-diastolic pressure was 20 to 24 mmHg. CONCLUSION: 1. Calcified coronary arteries. 2. Patent stent to the LAD. 3. Mild to moderate triple-vessel disease. 4. Normal left ventricular size and systolic function. RECOMMENDATIONS: In view of findings and anatomy, I recommend continue medical therapy with aggressive coronary risk modifications that have been initiated. Those findings and recommendations were discussed with the patient and his family and they are in full understanding and agreement. VIET / RAGHU: [id number] /
--- NOTE | 2021-05-11 13:12 | LTR ---
DATE OF SERVICE: 05/11/[address] Mcneil: I had the pleasure of performing cardiac catheterization on Mr. Burks at [facility] on May 11 and a full copy of procedure note will be forwarded to you. In brief, he was found to have mild to moderate triple-vessel disease with no significant progression compared to 2019. Based on those findings, I recommend continued medical therapy with aggressive coronary risk modifications that have been initiated. Thank you again for allowing me to participate in your care. Please feel free to call for any questions. Sincerely, VIET / RAGHU: [id number] /
[2021-05-11 13:44] VITALS: BP 124/62; PULSE 74
[2021-05-11] MEDS ORDERED: ATORVASTATIN 80 MG TAB PO SCH (21:00)
[2021-05-12] MEDS ORDERED: ISOSORBIDE MONONITRATE ER 60 MG TAB.ER.24H PO SCH (09:00)
[2021-05-12] MEDS ORDERED: LOSARTAN 50 MG TAB PO SCH (09:00)
[2021-05-12] MEDS ORDERED: ASPIRIN 81 MG PO SCH (09:00)
== END 2021-05-11 14:04 | disposition home or self-care (01) ==
LOC: CATHCVL 07:23
PROVIDERS: ATTEND Internal Medicine Interventional Cardiology
DX: I25.10 Atherosclerotic heart disease of native coronary artery without angina pectoris (principal); I25.84 Coronary atherosclerosis due to calcified coronary lesion; R94.39 Abnormal result of other cardiovascular function study; E78.00 Pure hypercholesterolemia, unspecified; E78.2 Mixed hyperlipidemia; Z87.891 Personal history of nicotine dependence; Z95.5 Presence of coronary angioplasty implant and graft; Z90.89 Acquired absence of other organs; Z79.82 Long term (current) use of aspirin; Z79.899 Other long term (current) drug therapy; Z88.0 Allergy status to penicillin
CPT/HCPCS: 93458; 85025; 87635; C1894; C1769; J2001; J3010; J1644; Q9967

== ENCOUNTER → 2021-05-17 | Outpatient (CLI) | payer MEDICARE | END | disposition home or self-care (01) | LOC: RADCTMAIN 15:13 | PROVIDERS: ATTEND Surgery Plastic and Reconstructive Surgery | DX: Z53.9 Procedure and treatment not carried out, unspecified reason (principal) ==

== ENCOUNTER → 2021-05-27 | Outpatient (CLI) | payer MEDICARE ==
--- NOTE | 2021-05-27 17:44 | CT ---
EXAMINATION TYPE: CT pelvis wo con DATE OF EXAM: 05/27/2021 COMPARISON: Abdomen pelvis CT dated 02/19/2018 HISTORY: 76-year-old male with concern for intra-abdominal or pelvic swelling or mass TECHNIQUE: CT scan of the pelvis was applied without IV or oral contrast. Axial, coronal and sagittal reformats were interpreted. CT DLP: 522 mGycm Automated exposure control for dose reduction was used. FINDINGS: There is a left-sided inguinal hernia containing fat and a descending bowel loop. There is no fluid or abnormal dilatation in the bowel loop within the left inguinal hernia. Scattered diverticula are seen in the included descending and sigmoid colon, the bowel segment within the left inguinal hernia is also involved with diverticulosis. There is no evidence of acute diverti culitis. There is also fat-containing right inguinal hernia. Included bowel loops are not abnormally dilated. Partially seen right renal lower pole cyst now measures up to 8.7 cm in transverse plane previously m easuring up to 7 cm. Advanced degenerative changes are noted at the included lumbar spine. Degenerative changes are also p resent at the bilateral sacroiliac joints and hip joints. The included vascular structures are acutely intact. No enlarged lymph nodes identified in the included retroperitoneum and pelvis. IMPRESSION: 1. LEFT-SIDED INGUINAL HERNIA PREVIOUSLY CONTAINING ONLY FAT NOW CONTAINING DESCENDING COLON. NO SIGN IFICANT FLUID OR STRANDING SEEN WITHIN THE HERNIA SAC. 2. NO EVIDENCE OF BOWEL OBSTRUCTION. 3. DESCENDING AND SIGMOID DIVERTICULOSIS WHICH ALSO INVOLVES THE HERNIATED SEGMENT. NO EVIDENCE OF AC JESICA DIVERTICULITIS. 4. PARTIALLY SEEN RIGHT KIDNEY LOWER POLE CYST ENLARGED COMPARED TO PRIOR.
== END | disposition home or self-care (01) ==
LOC: RADCTMAIN 16:33
PROVIDERS: ATTEND Surgery Plastic and Reconstructive Surgery
DX: K40.90 Unilateral inguinal hernia, without obstruction or gangrene, not specified as recurrent (principal); K57.30 Diverticulosis of large intestine without perforation or abscess without bleeding; N28.1 Cyst of kidney, acquired; R19.00 Intra-abdominal and pelvic swelling, mass and lump, unspecified site
CPT/HCPCS: 72192

== ENCOUNTER 2021-06-03 05:32 | Day surgery (SDC) | payer MEDICARE ==
[2021-05-31 15:55] VITALS: BMI 24.9
[~2021-06-03 05:32] MED LIST changes: -ALPRAZolam 0.25 MG TAB PO PRN; -ALPRAZolam 0.5 MG TAB PO PRN; -ASPIRIN 325 MG TAB PO STA; -ATORVASTATIN 80 MG TAB PO STA; -HEPARIN SODIUM,PORCINE 10,000 UNIT in SODIUM CHLORIDE 0.9% 1,000 ML IRRIGATION PRN; -HEPARIN SODIUM,PORCINE 2,500 UNIT in SODIUM CHLORIDE 0.9% 250 ML IRRIGATION PRN; +HEPARIN SODIUM,PORCINE/PF 5,000 UNIT/0.5 ML SYRINGE SQ PRN; -NITROGLYCERIN SL TABS 0.4 MG TAB SUBLINGUAL PRN; -SODIUM CHLORIDE 0.9% 1,000 ML in EMPTY BAG 1 BAG IV ONE
[2021-06-03] MEDS ORDERED: MIDAZOLAM 2 MG/2 ML VIAL IV PRN (05:45)
[2021-06-03] MEDS ORDERED: DEXAMETHASONE SOD PHOSPHATE 4 MG/ML 1 ML VIAL IV ONE (05:45)
[2021-06-03] MEDS ORDERED: ONDANSETRON 4 MG/2 ML VIAL IVP ONE (05:45)
[2021-06-03] MEDS ORDERED: LACTATED RINGERS 1,000 ML IV SCH (05:45)
[2021-06-03] MEDS ORDERED: MELOXICAM 7.5 MG TAB PO PRN (05:58)
[2021-06-03] MEDS ORDERED: TAMSULOSIN 0.4 MG CAP.ER.24H PO PRN (05:58)
[2021-06-03] MEDS ORDERED: ACETAMINOPHEN TAB 500 MG TAB PO PRN (05:58)
[2021-06-03] MEDS ORDERED: GABAPENTIN 300 MG CAP PO PRN (05:58)
--- NOTE | 2021-06-03 06:18 | P.GSHP ---
History of Present Illness H&P Date: 06/03/21 CHIEF COMPLAINT: Inguinal hernia, left HISTORY OF PRESENT ILLNESS: The patient is a 76-year-old male who presents with a history of swelling and pain along the left groin with change in bowel habits for over 1 month. He denies previous repair. He's noted increased swelling including pain of the area. He has completed cardiac risk assessment. Now he presents for repair of his inguinal hernia. PAST MEDICAL HISTORY: Please see list. PAST SURGICAL HISTORY: Please see list. MEDICATIONS: Please see list. ALLERGIES: Please see list. SOCIAL HISTORY: No illicit drug use FAMILY HISTORY: No reports of Crohn disease or ulcerative colitis. REVIEW OF ORGAN SYSTEMS: CONSTITUTIONAL: No fevers or chills. No recent weight loss. EYES: Denies any trouble with vision. Wears glasses. HEENT: No difficulties with hearing. No nosebleeds. No difficulty swallowing. RESPIRATORY: Denies pneumonia. Denies any troubles with breathing or dyspnea on exertion. CARDIOVASCULAR: Past chest pain, palpitations, or recent heart attacks. GASTROINTESTINAL: Denies fatty food intolerance. Has change in bowel habits and gas bloat. GENITOURINARY: Denies any blood in urine or increased urinary frequency. NEUROLOGICAL: Denies any numbness or tingling along the distal extremities. No seizure disorders or headaches. MUSCULOSKELETAL: Has back pain, stiffness or joint arthritis. SKIN: No current skin cancer. No rash. PSYCHIATRIC: Denies current depression or suicidal thoughts. ENDOCRINE: Denies current thyroid disorders. Denies any blood sugar glucose intolerance. HEME/LYMPHATIC: Denies any lumps and bumps around the neck. No recent deep venous thrombosis. ALLERGY/IMMUNOLOGY: No immunoglobulin therapy. No immune deficiencies. BREAST: Denies current breast lumps, pain or nipple discharge. PHYSICAL EXAM: VITALS: Reviewed CONSTITUTIONAL: Well developed and in no acute distress. EYES: Conjuctivae without sclera icterus. Extraocular movements grossly intact. HEAD, EARS, NOSE, THROAT: Moist buccal mucosa. Head is atraumatic, normocephalic. Hears conversational speech. No nasal drainage. NECK: Supple. No JV distention. No thyroidomegaly. RESPIRATORY: Non-labored respirations and equal bilateral excursions. No gross wheezes. CARDIOVASCULAR: Extremities without moderate edema. Palpable 2+ radial pulses. ABDOMEN: No peritonitis. Nondistended. Left inguinal hernia defect, a large LYMPH: No neck lymphadenopathy. MUSCULOSKELETAL: Nail and fingers with good capillary refill. SKIN: Warm and well perfused with good skin turgor. NEUROLOGIC: Cranial nerves II through XII grossly intact. Sensation upper and extremities intact. No focal or lateralizing signs. PSYCH: Appropriate affect. Alert and oriented to person, place and time. Displays appropriate insight. STUDIES: CT pelvis report confirms large left inguinal hernia in containing bowel. Additionally new right inguinal hernia identified. Presence of diverticulosis. Findings per report. ASSESSMENT: 1. Inguinal hernia, left bowel containing 2. New right inguinal hernia 3. Ischemic cardiomyopathy PLAN: 1. Recommend proceeding with a robotic inguinal repair with mesh with possible bilateral approach. 2. Benefits and risks of surgical intervention was discussed including possibility of open technique. 3. DVT prophylaxis. 4. Antibiotic prophylaxis. 5. He is elevated risk for complications with ischemic cardiomyopathy ADVANCE DIRECTIVE discussed Past Medical History Past Medical History: Coronary Artery Disease (CAD), Hyperlipidemia, Hypertension, Pneumonia Additional Past Medical History / Comment(s): SL Varicose Veins. Sl MURMUR. Hiatal Hernia. SOB with Activity. Arthritis. History of Any Multi-Drug Resistant Organisms: None Reported Past Surgical History: Adenoidectomy, Heart Catheterization With Stent, Tonsillectomy Additional Past Surgical History / Comment(s): HEART CATH X2, STENT X1 EACH TIME. Past Anesthesia/Blood Transfusion Reactions: No Reported Reaction Date of Last Stent Placement:: 02/2014 Smoking Status: Former smoker - Past Family History Mother Family Medical History: No Reported History Medications and Allergies Home Medications Medication Instructions Recorded Confirmed Type Aspirin 81 mg PO DAILY 06/22/14 05/31/21 History Ubidecarenone [Co Q-10] 400 mg PO DAILY PRN 06/29/19 05/31/21 History Atorvastatin Calcium [Lipitor] 80 mg PO HS 07/07/19 05/31/21 History Isosorbide Mononitrate [Isosorbide 60 mg PO DAILY 07/07/19 05/31/21 History Mononitrate ER] Losartan Potassium [Cozaar] 50 mg PO DAILY 07/07/19 05/31/21 History Nitroglycerin Sl Tabs [Nitrostat] 0.4 mg SUBLINGUAL Q5M PRN 05/09/21 05/31/21 History Psyllium Husk [Metamucil] 0.4 gm PO DAILY 05/09/21 05/31/21 History Acetaminophen Tab [Tylenol] 650 mg PO Q6H PRN 05/31/21 05/31/21 History Allergies Allergy/AdvReac Type Severity Reaction Status Date / Time Penicillins Allergy Rash/Hives Verified 05/31/21 15:33 chocolate AdvReac Chest Pain Uncoded 05/31/21 15:33
[2021-06-03 06:45] LABS: Basophils % (A) 0 %; Eosinophils # (A) 0.2 k/uL (0-0.7); Eosinophils % (A) 2 %; HCT 40.2 % (39.0-53.0); HGB 14.1 gm/dL (13.0-17.5); Lymphocytes # (A) 2.2 k/uL (1.0-4.8); Lymphocytes % (A) 25 %; MCH 31.3 pg (25.0-35.0); MCHC 35.2 g/dL (31.0-37.0); Mean Platelet Volume 6.5; Monocytes # (A) 0.5 k/uL (0-1.0); Monocytes % (A) 5 %; Neutrophils # (A) 5.8 k/uL (1.3-7.7); Neutrophils % (A) 66 %; Platelet Count 250 k/uL (150-450); RBC 4.52 m/uL (4.30-5.90); RDW 13.7 % (11.5-15.5); WBC 8.8 k/uL (3.8-10.6)
[2021-06-03 06:53] LABS: Albumin 4.3 g/dL (3.5-5.0); Calcium 9.8 mg/dL (8.4-10.2); Potassium 4.4 mmol/L (3.5-5.1); Total Bilirubin 0.7 mg/dL (0.2-1.3); Total Protein 6.8 g/dL (6.3-8.2)
[2021-06-03] MEDS ORDERED: HYDROmorphone 0.5 MG/0.5 ML SYRINGE IVP PRN (07:00)
[2021-06-03] MEDS ORDERED: ROCURONIUM 10 MG/ML (5 ML VIAL) IV ONE (07:30)
[2021-06-03] MEDS ORDERED: fentaNYL (PF) 50 MCG/ML 2 ML AMP ONE (07:30)
[2021-06-03] MEDS ORDERED: NEOSTIGMINE 1 MG/ML 10 ML VIAL ONE (07:30)
[2021-06-03] MEDS ORDERED: GLYCOPYRROLATE 0.2 MG/ML 2 ML VIAL ONE (07:30)
[2021-06-03] MEDS ORDERED: PHENYLEPHRINE-0.9% NACL SYG 1,000 MCG/10 ML SYRINGE ONE (07:30)
[2021-06-03] MEDS ORDERED: LIDOCAINE 1% INJ 10MG/ML (20 ML MDV) ONE (07:30)
[2021-06-03] MEDS ORDERED: SUCCINYLCHOLINE CHLORIDE 100 MG/5 ML SYR IV ONE (07:30)
[2021-06-03] MEDS ORDERED: ePHEDrine SULFATE/0.9% NACL/PF 50 MG/5 ML SYRINGE IV ONE (07:30)
[2021-06-03] MEDS ORDERED: HYDROmorphone (PF) 1 MG/ML ONE (07:30)
[2021-06-03] MEDS ORDERED: MIDAZOLAM 2 MG/2 ML VIAL ONE (07:30)
[2021-06-03] MEDS ORDERED: PROPOFOL 10 MG/ML 20 ML VIAL IV ONE (07:30)
[2021-06-03] MEDS ORDERED: BUPIVACAINE (PF) 0.25% 30 ML VIAL SQ ONE (08:15)
[2021-06-03] MEDS ORDERED: LACTATED RINGERS 1,000 ML IV ONE ×2 (10:10)
[2021-06-03 10:17] VITALS: TEMP 96.8
--- NOTE | 2021-06-03 10:57 | P.OP ---
Date of Procedure: 06/03/21 Description of Procedure: SURGEON: NYA ENCARNACION MD PREOPERATIVE DIAGNOSES: 1. Initial left inguinal hernia incarcerated with large bowel obstruction 2. Initial right inguinal hernia, incarcerated 3. Hypertensive heart disease with ischemic cardiomyopathy 4. Hyperlipidemia 5. Coronary artery disease with stent placement 2 POSTOPERATIVE DIAGNOSES: 1. Initial left inguinal hernia incarcerated with large bowel obstruction 2. Initial right inguinal hernia, incarcerated 3. Hypertensive heart disease with ischemic cardiomyopathy 4. Hyperlipidemia 5. Coronary artery disease with stent placement 2 OPERATION: 1. Robotic-assisted da [place] Xi laparoscopic repair of initial incarcerated right direct inguinal hernia with mesh, 11.[address] 2. Robotic-assisted da [place] Xi laparoscopic repair of initial incarcerated left direct inguinal hernia with mesh, 11.[address] 3. Resection of incarcerated right inguinal lipoma, 2 cm ANESTHESIA: General with local anesthetic ESTIMATED BLOOD LOSS: 5 mL. SPECIMENS: 1. Incarcerated right inguinal hernia lipoma and sac 2. Left inguinal hernia sac COMPLICATIONS: None. FINDINGS: 1. Incarcerated initial right inguinal hernia, 3 cm, indirect, with right inguinal lipoma 2. Left inguinal hernia, 4 cm, indirect containing sigmoid colon with incarceration INDICATIONS: The patient is a 76-year-old gentleman who presents with history of symptomatic left inguinal hernia. Imaging studies demonstrated bilateral ing uinal hernias. He presents for definitive surgical intervention. Laparoscopic versus open and robotic approaches were discussed. Benefits and risks including bleeding, infection, injury to the vas deferens as well as sterility and chronic groin pain were reviewed. Placement of mesh was also described. Informed consent was obtained. DESCRIPTION: In the preoperative area, the patient was marked with indelible marker along the inguinal hernia. The patient was brought to the operating room and initially laid in supine position. The abdomen had been prepped and draped in standard sterile fashion. Ioban draping was also placed. Prior to incision, a timeout protocol was confirmed with surgical team regarding patient's name including procedures to be performed and location along the right groin. Initial positioning for the robotic assisted ports were selected whereby 20 cm superior to the target anatomy, 0 degree 5 mm laparoscopic trocar entry was performed at the left upper quadrant. The abdomen was insufflated to 15 mmHg which he had tolerated well. Diagnostic laparoscopy demonstrated no injury to bowel, viscera or mesentery. A large defect along the left groin was found with sigmoid colon incarcerated. Along the right groin, fat-containing indirect hernia was found. Next, along the epigastrium, 8 mm robot trocar was placed. An 8-mm robotic trocar was placed under direct visualization at the right upper quadrant. An 8 mm port was placed at the left upper quadrant. All trocars were positioned between 10-cm apart from each other. The [employer] XI robot was primed, draped, prepared for docking along upper abdomen of the patient. The patient was positioned 21 steep Trendelenburg position. The colon was reduced from the left groin. I then went to the [employer] Xi console. The underwriting assistant was at bedside for exchange of the robot arms and equipment. The left indirect inguinal hernia sac was evaginated whereby the peritoneum was scored using Endo scissors with cautery. Once completely reduced into the abdominal cavity, the peritoneal sac of the hernia was stripped. The sac was resected and then passed off for further pathological analysis. The size of the hernia defect was 4 cm with intraoperative films obtained. Using nonabsorbable 2-0 VLOC, the peritoneal defect of the left inguinal hernia sites was closed using a running suture separately. The defect was found to be completely closed with complete reduction of the left indirect inguinal hernia were confirmed. As an onlay, an 11.[address] mesh by [employer] was initially cut in half and entered into the abdominal cavity via the 8 mm trocar. The mesh was tacked to the pelvis using nonabsorbable 2-0 VLOC sutures. Next, careful attention along the right groin demonstrated indirect hernia. The right inguinal hernia sac was evaginated whereby the peritoneum was scored using Endo scissors with cautery. Once completely reduced into the abdominal cavity, the peritoneal sac of the hernia was stripped along a tightly incarcerated inguinal hernia involving 2-cm right inguinal lipoma. The lipoma and sac was resected and then passed off for further pathological analysis. The size of the hernia defect was 2 cm with intraoperative films obtained. Using nonabsorbable 2-0 VLOC, the peritoneal defect of the right inguinal hernia site was closed using a running suture. The defect was found to be completely closed with complete reduction of the right indirect inguinal hernia was confirmed. As an onlay, an 11.[address] mesh by [employer] was initially cut in half and entered into the abdominal cavity via the 8 mm trocar. The mesh was tacked to the pelvis using nonabsorbable 2-0 VLOC 9-inch length sutures. The robot was undocked from the patient's bedside. I then rescrubbed into the case. Insufflation was released from the abdominal cavity and all instruments were removed from the abdominal cavity. The rest of incisions were reapproximated using 4-0 Monocryl in a running subcuticular fashion. Incisions were cleansed using dilute hydrogen peroxide. Liquid glue was applied to the skin. At the end of the procedure, the needle, sponge and instrument counts had been verified correct by the ophthalmic surgical assistant. The patient had tolerated the procedure well and was taken to the postanesthesia care unit in stable condition. Plan - Discharge Summary Discharge Rx Participant: Yes New Discharge Prescriptions: New Tamsulosin [Flomax] 0.4 mg PO DAILY #5 cap.er.24h Simethicone [Gas-X] 125 mg PO AC-TID PRN #20 capsule PRN Reason: Pain Ibuprofen [Motrin] 600 mg PO Q8HR PRN #30 tab PRN Reason: Pain Acetaminophen Tab [Tylenol Tab] 1,000 mg PO Q6HR PRN #30 tablet PRN Reason: Pain Continue Aspirin 81 mg PO DAILY Ubidecarenone [Co Q-10] 400 mg PO DAILY PRN PRN Reason: Chest Pain Isosorbide Mononitrate [Isosorbide Mononitrate ER] 60 mg PO DAILY Losartan Potassium [Cozaar] 50 mg PO DAILY Atorvastatin Calcium [Lipitor] 80 mg PO HS Nitroglycerin Sl Tabs [Nitrostat] 0.4 mg SUBLINGUAL Q5M PRN PRN Reason: Chest Pain Psyllium Husk [Metamucil] 0.4 gm PO DAILY Discontinued Acetaminophen Tab [Tylenol] 650 mg PO Q6H PRN PRN Reason: Pain Discharge Medication List Aspirin 81 mg PO DAILY 06/22/14 [History] Ubidecarenone [Co Q-10] 400 mg PO DAILY PRN 06/29/19 [History] Atorvastatin Calcium [Lipitor] 80 mg PO HS 07/07/19 [History] Isosorbide Mononitrate [Isosorbide Mononitrate ER] 60 mg PO DAILY 07/07/19 [History] Losartan Potassium [Cozaar] 50 mg PO DAILY 07/07/19 [History] Nitroglycerin Sl Tabs [Nitrostat] 0.4 mg SUBLINGUAL Q5M PRN 05/09/21 [History] Psyllium Husk [Metamucil] 0.4 gm PO DAILY 05/09/21 [History] Acetaminophen Tab [Tylenol Tab] 1,000 mg PO Q6HR PRN #30 tablet 06/03/21 [Rx] Ibuprofen [Motrin] 600 mg PO Q8HR PRN #30 tab 06/03/21 [Rx] Simethicone [Gas-X] 125 mg PO AC-TID PRN #20 capsule 06/03/21 [Rx] Tamsulosin [Flomax] 0.4 mg PO DAILY #5 cap.er.24h 06/03/21 [Rx] Follow up Appointment(s)/Referral(s): Nya Encarnacion MD [STAFF PHYSICIAN] - 06/07/21 8:45 am Patient Instructions/Handouts: Laparoscopic Herniorrhaphy (IP), Inguinal Hernia Repair (DC) Activity/Diet/Wound Care/Special Instructions: Using antibacterial soap. No lifting over 4 pounds 4 weeks, Jul 04March shower. No bathtub soaks for 2 weeks, June 17 Use ice along incisions for today to prevent swelling. Take tylenol, aleve/ibuprofen, simethicone scheduled for 3 days for best pain relief Discharge Disposition: HOME SELF-CARE
[2021-06-03] MEDS ORDERED: ARTIFICIAL TEARS-HYPROMELLOSE DROPS 15 ML BTL LEFT EYE PRN (13:06)
[2021-06-03 13:24] VITALS: BP 114/70; PULSE 81; RESP 17
[2021-06-03] MEDS ORDERED: TAMSULOSIN 0.4 MG CAP.ER.24H PO ONE (13:29)
== END 2021-06-03 14:43 | disposition home or self-care (01) ==
LOC: OR 05:32
PROVIDERS: ATTEND Surgery Plastic and Reconstructive Surgery
DX: K40.30 Unilateral inguinal hernia, with obstruction, without gangrene, not specified as recurrent (principal); E78.5 Hyperlipidemia, unspecified; I11.9 Hypertensive heart disease without heart failure; I25.10 Atherosclerotic heart disease of native coronary artery without angina pectoris; I25.5 Ischemic cardiomyopathy; M19.90 Unspecified osteoarthritis, unspecified site; Z79.82 Long term (current) use of aspirin; Z87.891 Personal history of nicotine dependence; Z88.0 Allergy status to penicillin; Z95.5 Presence of coronary angioplasty implant and graft
CPT/HCPCS: 49650; S2900; 80053; 85025; 88302; 88304; 93005

== ENCOUNTER → 2021-09-05 | Outpatient (CLI) | payer MEDICARE ==
[2021-09-05 16:52] LABS: Chol/HDL Ratio 2.62 Ratio; HDL Cholesterol 43.9 mg/dL (40.00-60.00); LDL Cholesterol,Calculated 57.3 mg/dL (0.0-131.0); VLDL Calculation 13.8 mg/dL (5.00-40.00)
== END | disposition home or self-care (01) ==
LOC: LABWHC1 08:52
PROVIDERS: ATTEND Internal Medicine Interventional Cardiology
DX: E78.2 Mixed hyperlipidemia (principal)
CPT/HCPCS: 36415; 80061; 84450; 84460

== ENCOUNTER 2021-11-26 11:55 | Emergency (ER) | payer MEDICARE ==
[2021-11-26 13:09] VITALS: BP 133/75; PULSE 93; RESP 20; TEMP 98.9
--- NOTE | 2021-11-26 14:02 | ED ---
URI HPI - General Chief Complaint: Upper Respiratory Infection Stated Complaint: Cough,Fever,Body Aches Time Seen by Provider: 11/26/21 13:38 Source: patient Mode of arrival: ambulatory Limitations: no limitations - History of Present Illness Initial Comments: Patient is a 76-year-old male that presents to the emergency department complaining of fever cough and sore throat starting on . He notes that he came to the emergency room to get tested for Covid. Patient was otherwise well-appearing. He did have a mild dry cough on deep inspiration. He denied any other issues or complaints. He denied chest pain shortness of breath headache nausea vomiting diarrhea constipation fatigue chills. - Related Data Home Medications Medication Instructions Recorded Confirmed Aspirin 81 mg PO DAILY 06/22/14 05/31/21 Ubidecarenone [Co Q-10] 400 mg PO DAILY PRN 06/29/19 05/31/21 Atorvastatin Calcium [Lipitor] 80 mg PO HS 07/07/19 05/31/21 Isosorbide Mononitrate [Isosorbide 60 mg PO DAILY 07/07/19 05/31/21 Mononitrate ER] Losartan Potassium [Cozaar] 50 mg PO DAILY 07/07/19 05/31/21 Nitroglycerin Sl Tabs [Nitrostat] 0.4 mg SUBLINGUAL Q5M PRN 05/09/21 05/31/21 Psyllium Husk [Metamucil] 0.4 gm PO DAILY 05/09/21 05/31/21 Previous Rx's Medication Instructions Recorded Acetaminophen Tab [Tylenol Tab] 1,000 mg PO Q6HR PRN #30 tablet 06/03/21 Ibuprofen [Motrin] 600 mg PO Q8HR PRN #30 tab 06/03/21 Simethicone [Gas-X] 125 mg PO AC-TID PRN #20 capsule 06/03/21 Tamsulosin [Flomax] 0.4 mg PO DAILY #5 cap.er.24h 06/03/21 Allergies Allergy/AdvReac Type Severity Reaction Status Date / Time Penicillins Allergy Rash/Hives Verified 11/26/21 13:09 chocolate AdvReac Chest Pain Uncoded 11/26/21 13:09 Review of Systems ROS Statement: Those systems with pertinent positive or pertinent negative responses have been documented in the HPI. ROS Other: All systems not noted in ROS Statement are negative. Past Medical History Past Medical History: Coronary Artery Disease (CAD), Hyperlipidemia, Hypertension, Pneumonia Additional Past Medical History / Comment(s): SL Varicose Veins. SL MURMUR. Hiatal Hernia. SOB with Activity. Arthritis History of Any Multi-Drug Resistant Organisms: None Reported Past Surgical History: Adenoidectomy, Heart Catheterization With Stent, Tonsillectomy Additional Past Surgical History / Comment(s): HEART CATH X2, STENT X1 EACH TIME. Past Anesthesia/Blood Transfusion Reactions: No Reported Reaction Date of Last Stent Placement:: 02/2014 Past Psychological History: No Psychological Hx Reported Smoking Status: Former smoker Past Alcohol Use History: Occasional Past Drug Use History: None Reported - Past Family History Mother Family Medical History: No Reported History General Exam Limitations: no limitations General appearance: alert, in no apparent distress Head exam: Present: atraumatic, normocephalic, normal inspection Eye exam: Present: normal appearance, PERRL, EOMI. Absent: scleral icterus, conjunctival injection, periorbital swelling ENT exam: Present: normal exam, mucous membranes moist Neck exam: Present: normal inspection Respiratory exam: Present: normal lung sounds bilaterally. Absent: respiratory distress, wheezes, rales, rhonchi, stridor Cardiovascular Exam: Present: regular rate, normal rhythm, normal heart sounds. Absent: systolic murmur, diastolic murmur, rubs, gallop, clicks Extremities exam: Present: normal inspection, full ROM, normal capillary refill. Absent: tenderness, pedal edema, joint swelling, calf tenderness Neurological exam: Present: alert, oriented X3 Psychiatric exam: Present: normal affect, normal mood Skin exam: Present: warm, dry, intact, normal color. Absent: rash Course Vital Signs 11/26/21 13:03 Temperature 98.9 F Pulse Rate 93 Respiratory 20 Rate Blood Pressure 133/75 O2 Sat by Pulse 96 Oximetry Medical Decision Making - Medical Decision Making 76-year-old male complaining of upper respiratory tract symptoms for approximately 7 days. Covid test ordered and is negative. Patient is agreeable with discharge home with conservative management using Tylenol Motrin [id number] cough suppressant. Case discussed with Dr. Shultz. - Lab Data Lab Results 11/26/21 Range/Units 13:12 Coronavirus (PCR) Not Detected (Not Detectd) Disposition Clinical Impression: Acute upper respiratory infection Disposition: HOME SELF-CARE Condition: Stable Instructions (If sedation given, give patient instructions): Upper Respiratory Infection (ED) Additional Instructions: Please return to the Emergency Department if symptoms worsen or any other concerns. Follow-up with primary care in 1-2 days. Take Tylenol Motrin as needed for aches pains or fevers. Take [id number] cough suppressant as needed. Is patient prescribed a controlled substance at d/c from ED?: No Referrals: Sameer Mcneil DO [Primary Care Provider] - 1-2 days Time of Disposition: 14:02
== END 2021-11-26 14:04 | disposition home or self-care (01) ==
LOC: EC 11:55
DX: J06.9 Acute upper respiratory infection, unspecified (principal); M19.90 Unspecified osteoarthritis, unspecified site; I10 Essential (primary) hypertension; I25.10 Atherosclerotic heart disease of native coronary artery without angina pectoris; Z87.891 Personal history of nicotine dependence; Z79.82 Long term (current) use of aspirin; Z79.02 Long term (current) use of antithrombotics/antiplatelets; Z79.811 Long term (current) use of aromatase inhibitors; Z88.0 Allergy status to penicillin; Z91.018 Allergy to other foods; Z20.822 Contact with and (suspected) exposure to COVID-19
CPT/HCPCS: 87635; 99283

== ENCOUNTER 2022-01-18 11:07 | Emergency (ER) | payer MEDICARE ==
[2022-01-18 11:37] VITALS: TEMP 97.2
--- NOTE | 2022-01-18 12:46 | ED ---
General Adult HPI - General Chief complaint: Fall Stated complaint: fall, back pain Time Seen by Provider: 01/18/22 12:39 Source: patient, family, RN notes reviewed Mode of arrival: ambulatory Limitations: no limitations - History of Present Illness Initial comments: Patient is a pleasant 77-year-old male presenting to the emergency department with upper back discomfort. Patient had a slip and fall on ice today. Patient fell directly on his upper back. Patient also struck the back of his head. Patient denies taking any blood thinners at all. No loss of consciousness. No weakness. No confusion. No vomiting. No visual changes. Patient did feel a little bit dizzy right after the fall. Tetanus and position is up-to-date. Patient does have moderate to severe discomfort of his mid upper back, between the shoulder blades. Patient states this is only in the middle, not on the sides. Patient denies any dyspnea at all however states there is discomfort with taking a deep breath. No extremity injury. No chest pain. No abdominal pain. - Related Data Home Medications Medication Instructions Recorded Confirmed Aspirin 81 mg PO DAILY 06/22/14 01/18/22 Ubidecarenone [Co Q-10] 400 mg PO DAILY 06/29/19 01/18/22 Atorvastatin Calcium [Lipitor] 80 mg PO HS 07/07/19 01/18/22 Losartan Potassium [Cozaar] 50 mg PO DAILY 07/07/19 01/18/22 Nitroglycerin Sl Tabs [Nitrostat] 0.4 mg SUBLINGUAL Q5M PRN 05/09/21 01/18/22 Psyllium Husk [Metamucil] 0.4 gm PO DAILY 05/09/21 01/18/22 Isosorbide Mononitrate ER [Imdur] 60 mg PO DAILY 01/18/22 01/18/22 amLODIPine [Norvasc] 2.5 mg PO DAILY 01/18/22 01/18/22 Allergies Allergy/AdvReac Type Severity Reaction Status Date / Time Penicillins Allergy Rash/Hives Verified 01/18/22 13:36 chocolate AdvReac Chest Pain Uncoded 01/18/22 11:37 Review of Systems ROS Statement: Those systems with pertinent positive or pertinent negative responses have been documented in the HPI. ROS Other: All systems not noted in ROS Statement are negative. Constitutional: Denies: fever Eyes: Denies: eye pain ENT: Denies: ear pain Respiratory: Denies: cough Cardiovascular: Denies: chest pain Endocrine: Denies: fatigue Gastrointestinal: Denies: abdominal pain Genitourinary: Reports: dysuria Musculoskeletal: Reports: as per HPI, back pain Skin: Denies: rash Neurological: Denies: headache, weakness, confusion, vertigo Past Medical History Past Medical History: Coronary Artery Disease (CAD), Hyperlipidemia, Hypertension, Pneumonia Additional Past Medical History / Comment(s): SL Varicose Veins. SL MURMUR. Hiatal Hernia. SOB with Activity. Arthritis History of Any Multi-Drug Resistant Organisms: None Reported Past Surgical History: Adenoidectomy, Heart Catheterization With Stent, Hernia Repair, Tonsillectomy Additional Past Surgical History / Comment(s): HEART CATH X2, STENT X1 EACH TIME. Past Anesthesia/Blood Transfusion Reactions: No Reported Reaction Date of Last Stent Placement:: 02/2014 Past Psychological History: No Psychological Hx Reported Smoking Status: Former smoker Past Alcohol Use History: Occasional Past Drug Use History: None Reported - Past Family History Mother Family Medical History: No Reported History General Exam Limitations: no limitations General appearance: alert, in no apparent distress Head exam: Present: other (Posterior scalp abrasion) Eye exam: Present: normal appearance, PERRL, EOMI ENT exam: Present: normal oropharynx Neck exam: Present: normal inspection, full ROM. Absent: tenderness Respiratory exam: Present: normal lung sounds bilaterally. Absent: chest wall tenderness Cardiovascular Exam: Present: regular rate, normal rhythm GI/Abdominal exam: Present: soft. Absent: tenderness Extremities exam: Present: normal inspection, full ROM. Absent: tenderness Back exam: Present: tenderness (Moderate tenderness approximately T6 through T8 midline.), vertebral tenderness. Absent: paraspinal tenderness Neurological exam: Present: alert Psychiatric exam: Present: normal affect, normal mood Skin exam: Present: normal color Course Vital Signs 01/18/22 01/18/22 11:32 13:43 Temperature 97.2 F L Pulse Rate 123 H 92 Respiratory 18 20 Rate Blood Pressure 112/93 104/59 O2 Sat by Pulse 97 98 Oximetry Medical Decision Making - Medical Decision Making Patient reevaluated and resting comfortably in bed. Mild improvement with Tylenol. Patient updated on results and need for follow-up. Patient did not want further medication other than Tylenol. - Radiology Data Radiology results: report reviewed (Computed tomography scan of the brain shows artifact. No visualized hemorrhage.), image reviewed (Thoracic spine x-ray shows no acute process) Disposition Clinical Impression: Fall, Head contusion, Contusion of thoracic spine Disposition: HOME SELF-CARE Condition: Stable Instructions (If sedation given, give patient instructions): Fall Prevention (ED), Head Injury (ED) Additional Instructions: Please do follow-up through primary care physician in the next day or 2 for recheck. Return for confusion, weakness, difficulty breathing, worsening or changing symptoms or other concerns. Ice to affected areas. Is patient prescribed a controlled substance at d/c from ED?: No Referrals: Sameer Mcneil DO [Primary Care Provider] - 1-2 days Time of Disposition: 14:34
--- NOTE | 2022-01-18 13:21 | XR ---
EXAMINATION TYPE: XR thoracic spine complete DATE OF EXAM: 01/18/2022 COMPARISON: NONE HISTORY: Pain TECHNIQUE: 3 views submitted FINDINGS: Alignment is anatomic. There is no compression deformities. Hypertrophic and degenerative changes of the spine. IMPRESSION: 1. Multilevel hypertrophic and degenerative change of the spine.
[2022-01-18] MEDS ORDERED: ACETAMINOPHEN TAB 500 MG TAB PO STA (13:27)
[2022-01-18 13:54] VITALS: BP 104/59; PULSE 92; RESP 20
--- NOTE | 2022-01-18 14:10 | CT ---
EXAMINATION TYPE: CT brain wo con DATE OF EXAM: 01/18/2022 COMPARISON: 02/03/2019 HISTORY: Fall, hit back of head, pain CT DLP: 1192.8 mGycm Automated exposure control for dose reduction was used. FINDINGS: There is significant artifact posteriorly was limits assessment of posterior fossa. Remaining portions of the brain demonstrate no obvious acute intracranial hemorrhage or mass effect. Mild generalized degenerative change with slightly greater on the lobe component. Calvarium grossly intact as visualized. Orbits are symmetric. The sinuses are clear. Nasal septal dev iation noted. Intracranial atherosclerotic changes noted. Craniocervical junction maintained. Tiny hy podensity within the left basal ganglia could represent a prominent Virchow-Stoney space or focal area of remote infarct. IMPRESSION: LIMITED EXAM DUE TO EXTREME ARTIFACT POSTERIORLY/POSTERIOR FOSSA DEMONSTRATES NO ACUTE HEMORRHAGE VISUALIZED.
[2022-01-18] MEDS ORDERED: ACET/COD 300 MG/30 MG STARTER PACK 6 TAB BTL PO STA (14:34)
== END 2022-01-18 14:49 | disposition home or self-care (01) ==
LOC: EC 11:07
DX: S00.93XA Contusion of unspecified part of head, initial encounter (principal); S20.229A Contusion of unspecified back wall of thorax, initial encounter; I10 Essential (primary) hypertension; Z87.891 Personal history of nicotine dependence; Z91.018 Allergy to other foods; Z88.0 Allergy status to penicillin; W19.XXXA Unspecified fall, initial encounter
CPT/HCPCS: 70450; 72072; 99284

== ENCOUNTER → 2022-04-10 | Outpatient (CLI) | payer MEDICARE ==
[2022-04-10 15:33] LABS: ALT 26 U/L (10-49); AST 23 U/L (14-35); Albumin 4.5 g/dL (3.8-4.9); Albumin/Globulin Ratio 2.05 (1.60-3.17); Alkaline Phosphatase 108 U/L (41-126); BUN/Creat Ratio 14.13 Ratio (12.00-20.00); Blood Urea Nitrogen 21.2 mg/dL (9.0-27.0); Calcium 9.3 mg/dL (8.7-10.3); Carbon Dioxide 23.2 mmol/L (20.0-27.5); Chloride 108 mmol/L (96-109); Globulin 2.2 g/dL (1.6-3.3); Glucose 104 mg/dL (70-110); Non-African American GFR(CKD) 44.9 (60.0-200.0); Potassium 4.2 mmol/L (3.5-5.5); Sodium 141 mmol/L (135-145); Total Protein 6.7 g/dL (6.2-8.2)
[2022-04-10 15:34] LABS: Chol/HDL Ratio 2.81 Ratio; LDL Cholesterol,Calculated 57.6 mg/dL (0.0-131.0); VLDL Calculation 15.92 mg/dL (5.00-40.00)
== END | disposition home or self-care (01) ==
LOC: LABWHC1 08:20
PROVIDERS: ATTEND Internal Medicine Interventional Cardiology
DX: E78.2 Mixed hyperlipidemia (principal)
CPT/HCPCS: 36415; 80053; 80061

== ENCOUNTER → 2022-10-26 | Outpatient (CLI) | payer MEDICARE ==
[2022-10-26 15:14] LABS: ALT 28 U/L (10-49); AST 27 U/L (14-35); Chol/HDL Ratio 2.91 Ratio; LDL Cholesterol,Calculated 62.2 mg/dL (0.0-131.0)
== END | disposition home or self-care (01) ==
LOC: LABWHC1 08:18
PROVIDERS: ATTEND Internal Medicine Interventional Cardiology
DX: E78.2 Mixed hyperlipidemia (principal)
CPT/HCPCS: 36415; 80061; 84450; 84460

== ENCOUNTER → 2023-04-17 | Outpatient (CLI) | payer MEDICARE ==
[2023-04-17 15:30] LABS: ALT 22 U/L (10-49); AST 26 U/L (14-35); African American GFR (CKD) 55.7 (60.0-200.0); Albumin 4.6 g/dL (3.8-4.9); Albumin/Globulin Ratio 2.08 (1.60-3.17); Alkaline Phosphatase 128 U/L (41-126); BUN/Creat Ratio 13.33 Ratio (12.00-20.00); Blood Urea Nitrogen 18.8 mg/dL (9.0-27.0); Calcium 9.9 mg/dL (8.7-10.3); Carbon Dioxide 25.8 mmol/L (20.0-27.5); Chloride 105 mmol/L (96-109); Chol/HDL Ratio 2.72 Ratio; Globulin 2.2 g/dL (1.6-3.3); Glucose 103 mg/dL (70-110); LDL Cholesterol,Calculated 59.5 mg/dL (0.0-131.0); Potassium 4.4 mmol/L (3.5-5.5); Sodium 141 mmol/L (135-145); Total Protein 6.8 g/dL (6.2-8.2); VLDL Calculation 13.22 mg/dL (5.00-40.00)
== END | disposition home or self-care (01) ==
LOC: LABWHC1 08:15
PROVIDERS: ATTEND Internal Medicine Interventional Cardiology
DX: E78.2 Mixed hyperlipidemia (principal)
CPT/HCPCS: 36415; 80053; 80061

== ENCOUNTER → 2023-05-14 | Outpatient (CLI) | payer MEDICARE ==
[2023-05-14 16:57] LABS: HCT 43.6 % (39.6-50.0); HGB 14.3 d/dL (12.0-15.0); MCH 30.1 pg (27.0-32.0); MCHC 32.8 d/dL (32.0-37.0); MCV 91.8 FL (80.0-97.0); NRBC Per 100 WBC 0 X 10*3/uL (0.00-0.01); Platelet Count 227 X 10*3/uL (140-440); RBC 4.75 X 10*6/uL (4.40-5.60); RDW 14.4 % (11.5-14.5); WBC 6.09 X 10*3/uL (4.50-10.00)
[2023-05-15 18:16] LABS: Blood Urea Nitrogen 18.4 mg/dL (9.0-27.0); Carbon Dioxide 20.4 mmol/L (21.6-31.8); Chloride 108 mmol/L (96-109); Potassium 4.3 mmol/L (3.5-5.5); Sodium 144 mmol/L (135-145)
== END | disposition home or self-care (01) ==
LOC: LABPAT 08:25
PROVIDERS: ATTEND Internal Medicine Interventional Cardiology
DX: Z01.812 Encounter for preprocedural laboratory examination (principal); I25.118 Atherosclerotic heart disease of native coronary artery with other forms of angina pectoris
CPT/HCPCS: 36415; 80051; 82565; 84520; 85027

== ENCOUNTER → 2023-05-24 | Day surgery (SDC) | payer MEDICARE ==
[~2023-05-24] MED LIST changes: +ALPRAZolam 0.25 MG TAB PO PRN; +ALPRAZolam 0.5 MG TAB PO PRN; +ASPIRIN 325 MG TAB PO STA; +ASPIRIN 81 MG PO SCH; +ATORVASTATIN 80 MG TAB PO SCH; +HEPARIN SODIUM 1,000 UN/ML (10ML VL) IV ONE; +HEPARIN SODIUM 1,000 UN/ML (10ML VL) ONE; -HEPARIN SODIUM,PORCINE/PF 5,000 UNIT/0.5 ML SYRINGE SQ PRN; +IOPAMIDOL-370 100ML BTL INJ ONE; +ISOSORBIDE MONONITRATE ER 60 MG TAB.ER.24H PO SCH; +ISOSORBIDE MONONITRATE ER 60 MG TAB.ER.24H PO STA; +LIDOCAINE 1% INJ 10MG/ML (5 ML VIAL-PF) SQ ONE; +LOSARTAN 50 MG TAB PO SCH; +NITROGLYCERIN SL TABS 0.4 MG TAB SUBLINGUAL PRN; +RX INFO: IV CONTRAST WAS GIVEN 1 EACH MISC MISCELLANE PRN; +SODIUM CHLORIDE 0.9% 1,000 ML IV ONE; +SODIUM CHLORIDE 0.9% 1,000 ML IV SCH; +SODIUM CHLORIDE 0.9% 1,000 ML in EMPTY BAG 1 BAG IV SCH; +VERAPAMIL 2.5 MG/ML 2 ML AMP ONE; +VERAPAMIL SYRINGE (5 MG/10 ML) INTRAARTER ONE; +amLODIPine 2.5 MG TAB PO SCH; +fentaNYL (PF) 50 MCG/ML 2 ML AMP IV ONE; +fentaNYL (PF) 50 MCG/ML 2 ML AMP ONE
[2023-05-24 06:25] VITALS: RESP 16; TEMP 97.6
--- NOTE | 2023-05-24 08:34 | P.CARDCATH ---
Date of Procedure: 05/24/23 Description of Procedure: Cardiac Catheterization: The patient is a 78-year-old male with a known history of hypertension, hyperlipidemia and diabetes mellitus was been complaining of progressive symptoms of chest discomfort and progressive dyspnea on exertion. Recommendations were made regarding cardiac catheterization, the risks and the complications were discussed with the patient who is in full understanding and agreement. Procedure Description: Patient was brought to laboratory equipment cleaner in fasting semi-sedated state after receiving Fentanyl and Benadryl achieiving moderate conscious sedated state. Using Xylocaine Anesthesia and Seldinger technique, a 6-Malian sheath was introduced in the right radial artery . Subsequently, selective coronary angiography was performed using a 5-Malian 3.5 bend Fernando catheter. Multiple views of the coronary artery including hemiaxial views were obtained. The 5-Malian pigtail catheter was used to cross the aortic valve and LVEDP was calculated. Following that, catheter and sheath were removed. Hemostasis was obtained with deployment of TR band . There was no im mediate complication. Patient was returned to room in stable condition. Of note, the patient received a total of 5000 units of intravenous heparin as well as intra-arterial verapamil. Findings: Fluoroscopy: Calcifications of the coronary arteries was noted Left main: This is a large-size vessel, bifurcating into LAD and left circumflex, left main has no high-grade stenosis LAD: This is a large-size vessel, reaching to the apex, giving rise to a large diagonal branch. The proximal LAD is stented with patent stent and mild intimal in-stent restenosis of 20-30%. There is intimal disease in the midsegment up to 50%, the rest of the vessel has no high-grade stenosis. Left circumflex: This is a large nondominant vessel giving rise to 2 obtuse marginal branch. The left circumflex in the mid segment has intimal disease of 40-50% involving the obtuse marginal branch with no high-grade stenosis RCA: This is a large dominant vessel, bifurcating into PDA and PLV. It has a superior takeoff. The right coronary artery mid segment has a 50% plaque, there is intimal disease in the PDA and PLV is no high-grade stenosis. Left Ventriculogram: Not performed Hemodynamics: There was no gradient across the aortic valve , LVEDP was 16-20 mmHg Conclusion: 1. Calcified coronary arteries 2. Patent stent in the proximal LAD with no significant restenosis 3. Mild to moderate triple-vessel disease 4. Mildly elevated LVEDP Recommendations: The patient will continue with aggressive coronary risks modifications. He was noted to be in atrial fibrillation today which is new for him, anticoagulation will be initiated. The findings and the recommendations were discussed with the patient and the family and they were in full understanding and agreement. Duration of sedation is 13 minutes.
[2023-05-24 11:59] VITALS: BP 105/62; PULSE 76
== END | disposition home or self-care (01) ==
LOC: CATHCVL 05:40
PROVIDERS: ATTEND Internal Medicine Interventional Cardiology
DX: I25.10 Atherosclerotic heart disease of native coronary artery without angina pectoris (principal); I10 Essential (primary) hypertension; E78.5 Hyperlipidemia, unspecified; E11.9 Type 2 diabetes mellitus without complications; I48.91 Unspecified atrial fibrillation; F17.210 Nicotine dependence, cigarettes, uncomplicated; Z79.82 Long term (current) use of aspirin; Z88.0 Allergy status to penicillin; Z79.899 Other long term (current) drug therapy
CPT/HCPCS: 93458; C1769 ×2; C1894; J2001; J3010; J1644; Q9967

== ENCOUNTER 2023-08-24 11:47 | Observation (INO) | payer MEDICARE ==
[2023-08-24 11:57] LABS: Glucose,Whole Blood 130 mg/dL (70-110)
--- NOTE | 2023-08-24 12:32 | ED ---
General Adult HPI - General Chief complaint: Syncope Stated complaint: Syncope Time Seen by Provider: 08/24/23 12:00 Source: patient, EMS, RN notes reviewed Mode of arrival: EMS Limitations: no limitations - History of Present Illness Initial comments: Patient is a pleasant 78-year-old male presenting to the emergency Department with sacral episode. The only was present at the time and helps provide history. Patient did feel very lightheaded. Patient was able to sit down in a chair and became unresponsive for about 5 minutes. Patient does have history of these episodes previously however history of previous syncope. No chest pain or dyspnea. No back or abdominal pain. Patient does have history of A. fib and is reported to him that he hasn't been around 20% of the time. Patient denies palpitations. - Related Data Home Medications Medication Instructions Recorded Confirmed Aspirin 81 mg PO DAILY 06/22/14 05/24/23 Ubidecarenone [Co Q-10] 400 mg PO DAILY 06/29/19 05/24/23 Atorvastatin Calcium [Lipitor] 80 mg PO HS 07/07/19 05/24/23 Losartan Potassium [Cozaar] 50 mg PO HS 07/07/19 05/24/23 Nitroglycerin Sl Tabs [Nitrostat] 0.4 mg SUBLINGUAL Q5M PRN 05/09/21 05/22/23 Psyllium Husk [Metamucil] 0.4 gm PO DAILY 05/09/21 05/24/23 Isosorbide Mononitrate ER [Imdur] 60 mg PO BID 01/18/22 05/24/23 amLODIPine [Norvasc] 2.5 mg PO HS 01/18/22 05/24/23 Previous Rx's Medication Instructions Recorded Rivaroxaban [Xarelto] 20 mg PO DAILY #90 tab 05/24/23 Allergies Allergy/AdvReac Type Severity Reaction Status Date / Time Penicillins Allergy Rash/Hives Verified 08/24/23 11:51 chocolate AdvReac Chest Pain Uncoded 08/24/23 11:51 Review of Systems ROS Statement: Those systems with pertinent positive or pertinent negative responses have been documented in the HPI. ROS Other: All systems not noted in ROS Statement are negative. Constitutional: Denies: fever ENT: Denies: ear pain Respiratory: Denies: cough, dyspnea Cardiovascular: Denies: chest pain Endocrine: Reports: fatigue Gastrointestinal: Denies: abdominal pain Genitourinary: Denies: dysuria Past Medical History Past Medical History: Coronary Artery Disease (CAD), Hyperlipidemia, Hypertension, Pneumonia Additional Past Medical History / Comment(s): SL Varicose Veins. SL MURMUR. Hiatal Hernia. SOB with Activity. Arthritis History of Any Multi-Drug Resistant Organisms: None Reported Past Surgical History: Adenoidectomy, Heart Catheterization With Stent, Hernia Repair, Tonsillectomy Additional Past Surgical History / Comment(s): HEART CATH X2, STENT X1 EACH TIME. Past Anesthesia/Blood Transfusion Reactions: No Reported Reaction Date of Last Stent Placement:: 02/2014 Past Psychological History: No Psychological Hx Reported Smoking Status: Former smoker Past Alcohol Use History: None Reported Past Drug Use History: None Reported - Past Family History Mother Family Medical History: No Reported History General Exam Limitations: no limitations General appearance: alert, in no apparent distress Head exam: Present: normocephalic Eye exam: Present: normal appearance, PERRL, EOMI ENT exam: Present: normal oropharynx Neck exam: Present: normal inspection. Absent: tenderness, meningismus Respiratory exam: Present: normal lung sounds bilaterally Cardiovascular Exam: Present: irregular rhythm Expanded Peripheral pulses: 2+: Radial (R), Radial (L), Posterior Tibialis (R), Posterior Tibialis (L) GI/Abdominal exam: Present: soft. Absent: tenderness Extremities exam: Present: normal inspection. Absent: pedal edema, calf tenderness Neurological exam: Present: alert, oriented X3, CN II-XII intact. Absent: motor sensory deficit Expanded Cranial nerves: EOM's Intact: Normal Motor strength exam: RUE: 5, LUE: 5, RLE: 5, LLE: 5 Eye Response: (4) open spontaneously Motor Response: (6) obeys commands Verbal Response: (5) oriented Psychiatric exam: Present: normal affect, normal mood Skin exam: Present: normal color Course Vital Signs 08/24/23 08/24/23 08/24/23 11:48 11:53 12:00 Temperature 97.5 F L Pulse Rate 64 68 Respiratory 18 17 Rate Blood Pressure 111/69 111/69 O2 Sat by Pulse 98 97 Oximetry 08/24/23 08/24/23 12:01 12:30 Temperature Pulse Rate 58 L 59 L Respiratory 18 16 Rate Blood Pressure 98/61 98/61 O2 Sat by Pulse 97 96 Oximetry EKG Findings - EKG Results: EKG: interpreted by ERMD (Septal Q waves. LVH. Nonspecific T waves.), normal axis EKG shows: atrial fibrillation Medical Decision Making - Medical Decision Making Was pt. sent in by a medical professional or institution (, [facility], [facility], urgent care, hospital, or detention...) When possible be specific @ -No Did you speak to anyone other than the patient for history (EMS, parent, family, police, friend...)? What history was obtained from this source @ -Family is present and helps provide history including the event which patient does not recall well. Did you review nursing and triage notes (agree or disagree)? Why? @ -I reviewed and agree with nursing and triage notes Were old charts reviewed (outside hosp., previous admission, EMS record, old EKG, old radiological studies, urgent care reports/EKG's, detention records)? Report findings @ -No old charts were reviewed Differential Diagnosis (chest pain, altered mental status, abdominal pain women, abdominal pain men, vaginal bleeding, weakness, fever, dyspnea, syncope, headache, dizziness, GI bleed, back pain, seizure, CVA, palpatations, mental health, musculoskeletal)? @ -Differential Syncope: Valvular disease, hypertrophic cardiomyopathy, pulmonary embolism, tamponade, tachycardia, bradycardia, SD, hypovolemia, hemorrhage, dissection, anemia, intracranial hemorrhage, seizure, hypoglycemia, carbon monoxide poisoning, this is not meant to be an all-inclusive list. EKG interpreted by me (3pts min.). @ -As above X-rays interpreted by me (1pt min.). @ -Chest x-ray shows some atrial fibrillation atelectasis CT interpreted by me (1pt min.). @ -CT brain shows atrophy and motion artifact. No obvious hemorrhage U/S interpreted by me (1pt. min.). @ -None done What testing was considered but not performed or refused? (CT, X-rays, U/S, labs)? Why? @ -None What meds were considered but not given or refused? Why? @ -None Did you discuss the management of the patient with other professionals (professionals i.e. , [facility], [facility], lab, RT, psych nurse, social group worker, piano assembler, teacher, horticultural technical officer, field case manager)? Give summary @ -Case discussed with Dr. Mendes who did evaluate patient and will admit c overing Dr. Mcneil Was smoking cessation discussed for >3mins.? @ -No Was critical care preformed (if so, how long)? @ -No Were there social determinants of health that impacted care today? How? (Homelessness, low income, unemployed, alcoholism, drug addiction, transportation, low edu. Level, literacy, decrease access to med. care, long-term, rehab)? @ -No Was there de-escalation of care discussed even if they declined (Discuss DNR or withdrawal of care, Hospice)? DNR status @ -No What co-morbidities impacted this encounter? (DM, HTN, Smoking, COPD, CAD, Cancer, CVA, ARF, Chemo, Hep., AIDS, mental health diagnosis, sleep apnea, morbid obesity)? @ -None Was patient admitted / discharged? Hospital course, mention meds given and route, prescriptions, significant lab abnormalities, going to OR and other pertinent info. @ -Patient and family updated on plan. Patient will be admitted. Admission orders written. Undiagnosed new problem with uncertain prognosis? @ -No Drug Therapy requiring intensive monitoring for toxicity (Heparin, Nitro, Insulin, Cardizem)? @ -No Were any procedures done? @ -No Diagnosis/symptom? @ -Syncope Acute, or Chronic, or Acute on Chronic? @ -Acute Uncomplicated (without systemic symptoms) or Complicated (systemic symptoms)? @ -default Side effects of treatment? @ -No Exacerbation, Progression, or Severe Exacerbation? @ -No Poses a threat to life or bodily function? How? (Chest pain, USA, SD, pneumonia, PE, COPD, DKA, ARF, appy, cholecystitis, CVA, Diverticulitis, Homicidal, Suicidal, threat to staff... and all critical care pts) @ -No - Lab Data Result diagrams: 08/24/23 12:41 08/24/23 12:41 Lab Results 08/24/23 08/24/23 08/24/23 Range/Units 11:54 12:41 12:41 WBC 8.8 (3.8-10.6) k/uL RBC 4.82 (4.30-5.90) m/uL Hgb 14.8 (13.0-17.5) gm/dL Hct 44.5 (39.0-53.0) % MCV 92.3 (80.0-100.0) fL MCH 30.6 (25.0-35.0) pg MCHC 33.2 (31.0-37.0) g/dL RDW 13.8 (11.5-15.5) % Plt Count 233 (150-450) k/uL MPV 7.8 Neutrophils % 60 % Lymphocytes % 30 % Monocytes % 7 % Eosinophils % 1 % Basophils % 0 % Neutrophils # 5.3 (1.3-7.7) k/uL Lymphocytes # 2.6 (1.0-4.8) k/uL Monocytes # 0.6 (0-1.0) k/uL Eosinophils # 0.1 (0-0.7) k/uL Basophils # 0.0 (0-0.2) k/uL PT 13.7 H (9.0-12.0) sec INR 1.4 H (<1.2) APTT 30.6 H (22.0-30.0) sec Sodium (137-145) mmol/L Potassium (3.5-5.1) mmol/L Chloride (98-107) mmol/L Carbon Dioxide (22-30) mmol/L Anion Gap mmol/L BUN (9-20) mg/dL Creatinine (0.66-1.25) mg/dL Est GFR (CKD-EPI)AfAm (>60 ml/min/1.73 sqM) Est GFR (CKD-EPI)NonAf (>60 ml/min/1.73 sqM) Glucose (74-99) mg/dL POC Glucose (mg/dL) 130 H (70-110) mg/dL POC Glu Crystal Machining Coordinator ID Debby Kent Calcium (8.4-10.2) mg/dL Magnesium (1.6-2.3) mg/dL Total Bilirubin (0.2-1.3) mg/dL AST (17-59) U/L ALT (4-49) U/L Alkaline Phosphatase (38-126) U/L Troponin I (0.000-0.034) ng/mL Total Protein (6.3-8.2) g/dL Albumin (3.5-5.0) g/dL 08/24/23 08/24/23 Range/Units 12:41 12:41 WBC (3.8-10.6) k/uL RBC (4.30-5.90) m/uL Hgb (13.0-17.5) gm/dL Hct (39.0-53.0) % MCV (80.0-100.0) fL MCH (25.0-35.0) pg MCHC (31.0-37.0) g/dL RDW (11.5-15.5) % Plt Count (150-450) k/uL MPV Neutrophils % % Lymphocytes % % Monocytes % % Eosinophils % % Basophils % % Neutrophils # (1.3-7.7) k/uL Lymphocytes # (1.0-4.8) k/uL Monocytes # (0-1.0) k/uL Eosinophils # (0-0.7) k/uL Basophils # (0-0.2) k/uL PT (9.0-12.0) sec INR (<1.2) APTT (22.0-30.0) sec Sodium 140 (137-145) mmol/L Potassium 4.4 (3.5-5.1) mmol/L Chloride 109 H (98-107) mmol/L Carbon Dioxide 19 L (22-30) mmol/L Anion Gap 12 mmol/L BUN 27 H (9-20) mg/dL Creatinine 1.41 H (0.66-1.25) mg/dL Est GFR (CKD-EPI)AfAm 56 (>60 ml/min/1.73 sqM) Est GFR (CKD-EPI)NonAf 48 (>60 ml/min/1.73 sqM) Glucose 133 H (74-99) mg/dL POC Glucose (mg/dL) (70-110) mg/dL POC Glu Crystal Machining Coordinator ID Calcium 9.4 (8.4-10.2) mg/dL Magnesium 1.7 (1.6-2.3) mg/dL Total Bilirubin 1.1 (0.2-1.3) mg/dL AST 27 (17-59) U/L ALT 21 (4-49) U/L Alkaline Phosphatase 85 (38-126) U/L Troponin I 0.024 (0.000-0.034) ng/mL Total Protein 6.4 (6.3-8.2) g/dL Albumin 3.9 (3.5-5.0) g/dL Disposition Clinical Impression: Syncope Disposition: ADMITTED IP TO THIS HOSP Is patient prescribed a controlled substance at d/c from ED?: No Referrals: Sameer Mcneil DO [Primary Care Provider] - 1-2 days Time of Disposition: 13:29
[2023-08-24 12:49] LABS: Basophils % (A) 0 %; Eosinophils # (A) 0.1 k/uL (0-0.7); Eosinophils % (A) 1 %; HCT 44.5 % (39.0-53.0); HGB 14.8 gm/dL (13.0-17.5); Lymphocytes # (A) 2.6 k/uL (1.0-4.8); Lymphocytes % (A) 30 %; MCH 30.6 pg (25.0-35.0); MCHC 33.2 g/dL (31.0-37.0); MCV 92.3 fL (80.0-100.0); Mean Platelet Volume 7.8; Monocytes # (A) 0.6 k/uL (0-1.0); Monocytes % (A) 7 %; Neutrophils # (A) 5.3 k/uL (1.3-7.7); Neutrophils % (A) 60 %; Platelet Count 233 k/uL (150-450); RBC 4.82 m/uL (4.30-5.90); RDW 13.8 % (11.5-15.5); WBC 8.8 k/uL (3.8-10.6)
[2023-08-24 12:59] LABS: INR 1.4 (<1.2); Partial Thromboplastin Time 30.6 sec (22.0-30.0); Prothrombin Time 13.7 sec (9.0-12.0)
--- NOTE | 2023-08-24 13:04 | CT ---
EXAMINATION TYPE: CT brain wo con DATE OF EXAM: 08/24/2023 COMPARISON: 01/18/2022 HISTORY: ams CT DLP: 1261.5 mGycm Automated exposure control for dose reduction was used. FINDINGS: Artifact limits assessment of posterior fossa. There is mild generalized degenerative change. There i s hypoattenuation within the white matter compatible with remote ischemic white matter change. Calvar ium is intact. Craniocervical junction maintained. No evidence of acute hemorrhage. Small hypodensity within the lef t basal ganglia compatible with remote lacunar infarct. Intracranial atherosclerotic changes. IMPRESSION: LIMITED ASSESSMENT OF THE POSTERIOR ARTIFACT DUE TO EXTENSIVE ARTIFACT. THE REMAINING PORTION OF BRAI N DEMONSTRATES MILD DEGENERATIVE AND REMOTE ISCHEMIC CHANGE WITH NO EVIDENCE OF ACUTE HEMORRHAGE.
--- NOTE | 2023-08-24 13:05 | XR ---
EXAMINATION TYPE: XR chest 2V DATE OF EXAM: 08/24/2023 COMPARISON: 06/29/2019 TECHNIQUE: PA and lateral views submitted. HISTORY: Syncope FINDINGS: The lungs are clear and there is no pneumothorax, pleural effusion, or focal pneumonia. Heart size normal and no overt failure. Osseous structures demonstrate hypertrophic and degenerative changes of the spine. Hyperinflation suggests COPD. Diffuse osteopenia with AC joint arthropathy. Subsegmental c hanges left lung base. IMPRESSION: 1. COPD with left basilar atelectasis favored over pneumonia.
[2023-08-24 13:07] LABS: ALT 21 U/L (4-49); AST 27 U/L (17-59); African American GFR (CKD) 56 (>60 ml/min/1.73 sqM); Albumin 3.9 g/dL (3.5-5.0); Alkaline Phosphatase 85 U/L (38-126); Anion Gap 12 mmol/L; Blood Urea Nitrogen 27 mg/dL (9-20); Calcium 9.4 mg/dL (8.4-10.2); Carbon Dioxide 19 mmol/L (22-30); Chloride 109 mmol/L (98-107); Glucose 133 mg/dL (74-99); Magnesium 1.7 mg/dL (1.6-2.3); Non-African American GFR(CKD) 48 (>60 ml/min/1.73 sqM); Potassium 4.4 mmol/L (3.5-5.1); Sodium 140 mmol/L (137-145); Total Bilirubin 1.1 mg/dL (0.2-1.3); Total Protein 6.4 g/dL (6.3-8.2)
[2023-08-24] MEDS ORDERED: NALOXONE 0.4 MG/ML 1 ML VIAL IV PRN (13:30)
[2023-08-24] MEDS ORDERED: ACETAMINOPHEN TAB 325 MG TAB PO PRN (13:30)
[2023-08-24] MEDS: SODIUM CHLORIDE 0.9% 1,000 ML IV SCH (13:50)
[2023-08-24] MEDS ORDERED: NITROGLYCERIN SL TABS 0.4 MG TAB SUBLINGUAL PRN (14:06)
--- NOTE | 2023-08-24 14:12 | P.HPIM ---
History of Present Illness Patient is a 78-year-old male came in was department because of the an episode which appeared to be syncope. Patient's serum creatinine is 1.41 which appears to be his baseline patient has chronic kidney disease stage III. Patient to is hypotensive when he came in with systolic up from 98 diastolic 61. Patient is on losartan, amlodipine. Echocardiogram that was done in 2019 showed normal ejection fraction patient had a cardiac catheterization earlier this year which showed calcified coronaries, elevated left ventricular end-diastolic pressures, mild to moderate triple-vessel disease. Patient does have history of atrial f ibrillation presently not on rate control medications that is on anticoagulation. Patient admitted to history of cardiac catheterization and stents in the past. Patient says his blood pressures always low at home. REVIEW OF SYSTEMS: CONSTITUTIONAL: No fever, no malaise, no fatigue. HEENT: No recent visual problems or hearing problems. Denied any sore throat. CARDIOVASCULAR: No chest pain, orthopnea, PND, no palpitations. PULMONARY: No shortness of breath, no cough, no hemoptysis. GASTROINTESTINAL: No diarrhea, no nausea, no vomiting, no abdominal pain. NEUROLOGICAL: No headaches, no weakness, no numbness. HEMATOLOGICAL: Denies any bleeding or petechiae. GENITOURINARY: Denies any burning micturition, frequency, or urgency. MUSCULOSKELETAL/RHEUMATOLOGICAL: Denies any joint pain, swelling, or any muscle pain. ENDOCRINE: Denies any polyuria or polydipsia. The rest of the 14-point review of systems is negative. PHYSICAL EXAMINATION: GENERAL: The patient is alert and oriented x3, not in any acute distress. Well developed, well nourished. HEENT: Pupils are round and equally reacting to light. EOMI. No scleral icterus. No conjunctival pallor. Normocephalic, atraumatic. No pharyngeal erythema. No thyromegaly. CARDIOVASCULAR: S1 and S2 present. No murmurs, rubs, or gallops. PULMONARY: Chest is clear to auscultation, no wheezing or crackles. ABDOMEN: Soft, nontender, nondistended, normoactive bowel sounds. No palpable organomegaly. MUSCULOSKELETAL: No joint swelling or deformity. EXTREMITIES: No cyanosis, clubbing, or pedal edema. NEUROLOGICAL: Gross neurological examination did not reveal any focal deficits. SKIN: No rashes. Assessment and plan -Syncope presyncope appears to be secondary to hypotension hold off on losartan and amlodipine for now patient may need one of these medications upon discharge. -Chronic A. fib patient is on anti-correlation is in with continued patient is rate controlled at this time patient had a monitor in the past because of syncopal episodes which did not show any bradycardia or pauses. Cardiology will evaluate the patient. 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 SL MURMUR. Hiatal Hernia. SOB with Activity. Arthritis History of Any Multi-Drug Resistant Organisms: None Reported Past Surgical History: Adenoidectomy, Heart Catheterization With Stent, Hernia Repair, Tonsillectomy Additional Past Surgical History / Comment(s): HEART CATH X2, STENT X1 EACH TIME. Past Anesthesia/Blood Transfusion Reactions: No Reported Reaction Date of Last Stent Placement:: 02/2014 Past Psychological History: No Psychological Hx Reported Smoking Status: Former smoker Past Alcohol Use History: None Reported Past Drug Use History: None Reported - Past Family History Mother Family Medical History: No Reported History Medications and Allergies Home Medications Medication Instructions Recorded Confirmed Type Aspirin 81 mg PO DAILY 06/22/14 05/24/23 History Atorvastatin Calcium [Lipitor] 80 mg PO HS 07/07/19 05/24/23 History Losartan Potassium [Cozaar] 50 mg PO HS 07/07/19 05/24/23 History Nitroglycerin Sl Tabs [Nitrostat] 0.4 mg SUBLINGUAL Q5M PRN 05/09/21 05/22/23 History Isosorbide Mononitrate ER [Imdur] 60 mg PO BID 01/18/22 05/24/23 History amLODIPine [Norvasc] 2.5 mg PO HS 01/18/22 05/24/23 History Rivaroxaban [Xarelto] 20 mg PO DAILY #90 tab 05/24/23 Rx Furosemide [Lasix] 20 mg PO DAILY PRN 08/24/23 08/24/23 History Metoprolol Tartrate [Lopressor] 25 mg PO BID 08/24/23 08/24/23 History Psyllium Husk 100% [Metamucil 6 gm PO DAILY 08/24/23 08/24/23 History Packet] Allergies Allergy/AdvReac Type Severity Reaction Status Date / Time amoxicillin Allergy Rash/Hives Verified 08/24/23 14:08 Penicillins Allergy Unknown Verified 08/24/23 14:08 chocolate AdvReac Chest Uncoded 08/24/23 14:08 Pain, stabbing pains Physical Exam Vitals: Vital Signs Temp Pulse Pulse Resp BP BP Pulse Ox 08/24/23 13:52 85 18 105/51 08/24/23 13:51 71 18 92/60 08/24/23 12:30 59 L 16 98/61 96 08/24/23 12:01 58 L 18 98/61 97 08/24/23 12:00 68 17 111/69 97 08/24/23 11:53 97.5 F L 08/24/23 11:48 64 18 111/69 98 Intake and Output 08/23/23 08/24/23 08/24/23 22:59 06:59 14:59 Other: Weight 90.718 kg Results CBC & Chem 7: 08/24/23 12:41 08/24/23 12:41 Labs: Abnormal Lab Results - Last 24 Hours (Table) 08/24/23 08/24/23 08/24/23 Range/Units 11:54 12:41 12:41 PT 13.7 H (9.0-12.0) sec INR 1.4 H (<1.2) APTT 30.6 H (22.0-30.0) sec Chloride 109 H (98-107) mmol/L Carbon Dioxide 19 L (22-30) mmol/L BUN 27 H (9-20) mg/dL Creatinine 1.41 H (0.66-1.25) mg/dL Glucose 133 H (74-99) mg/dL POC Glucose (mg/dL) 130 H (70-110) mg/dL
[2023-08-24] MEDS: FAMOTIDINE 20 MG TAB PO SCH (20:46)
[2023-08-24] MEDS ORDERED: ATORVASTATIN 80 MG TAB PO SCH (21:00)
[2023-08-24] MEDS ORDERED: ISOSORBIDE MONONITRATE ER 60 MG TAB.ER.24H PO SCH (21:00)
[2023-08-25] MEDS: SODIUM CHLORIDE 0.9% 1,000 ML IV SCH (05:39)
[2023-08-25 08:41] VITALS: RESP 18
[2023-08-25] MEDS: FAMOTIDINE 20 MG TAB PO SCH (08:41)
[2023-08-25 08:58] LABS: Basophils # (A) 0.04 X 10*3/uL (0.00-0.10); Basophils % (A) 0.5 %; Eosinophils % (A) 1.3 %; HCT 37.5 % (39.6-50.0); HGB 12.4 d/dL (13.0-17.0); Lymphocytes % (A) 26.8 %; MCH 30.2 pg (27.0-32.0); MCHC 33.1 d/dL (32.0-37.0); MCV 91.2 FL (80.0-97.0); Mean Platelet Volume 10.2 FL (9.5-12.2); Monocytes # (A) 0.64 X 10*3/uL (0.20-1.00); Monocytes % (A) 8.6 %; NRBC Per 100 WBC 0 X 10*3/uL (0.00-0.01); Neutrophils # (A) 4.67 X 10*3/uL (1.80-7.70); Neutrophils % (A) 62.7 %; Platelet Count 197 X 10*3/uL (140-440); RBC 4.11 X 10*6/uL (4.40-5.60); RDW 14.4 % (11.5-14.5); WBC 7.46 X 10*3/uL (4.50-10.00)
[2023-08-25] MEDS ORDERED: LOSARTAN 25 MG TAB PO SCH (09:00)
[2023-08-25] MEDS ORDERED: ASPIRIN 81 MG PO SCH (09:00)
[2023-08-25] MEDS ORDERED: RIVAROXABAN 20 MG TAB PO SCH (09:00)
[2023-08-25] MEDS ORDERED: LOSARTAN 50 MG TAB PO SCH (09:00)
[2023-08-25 09:38] LABS: ALT 14 U/L (10-49); AST 18 U/L (14-35); Albumin 3.6 d/dL (3.8-4.9); Albumin/Globulin Ratio 2.12 Ratio (1.60-3.17); Alkaline Phosphatase 83 U/L (41-126); BUN/Creat Ratio 15.62 Ratio (12.00-20.00); Blood Urea Nitrogen 20.3 mg/dL (9.0-27.0); Calcium 9.1 mg/dL (8.7-10.3); Carbon Dioxide 23.7 mmol/L (21.6-31.8); Chloride 110 mmol/L (96-109); Globulin 1.7 d/dL (1.6-3.3); Glucose 94 mg/dL (70-110); Potassium 4.4 mmol/L (3.5-5.5); Sodium 141 mmol/L (135-145); Total Bilirubin 0.8 mg/dL (0.3-1.2); Total Protein 5.3 d/dL (6.2-8.2)
--- NOTE | 2023-08-25 14:20 | P.CRDCN ---
History of Present Illness Consult date: 08/25/23 Consult reason: sycope History of present illness: This is Angus Bermudez NP, I'm dictating on behalf of Dr. Vaca's H&P and A&P The patient was interviewed and examined. HPI: Patient is a pleasant 78-year-old male with a past medical history that includes coronary artery disease, hyperlipidemia, hypertension, varicose veins, pansystolic murmur, hiatal hernia, shortness of breath with activity, paroxysmal atrial fibrillation, and arthritis who presents to the hospital with complaints of a syncopal episode. Family is present at the bedside. The patient reports that he has had occasional presyncopal episodes all throughout his life, but yesterday had a syncopal episode that according to family last approximate 5 minutes. 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 He states that he knows when he feels like he's going to pass out, and generally just has to sit down and the sensation will resolve. He states that however yesterday, he remains standing and tried to continue working, and then does not remember anything for a short period of time. Family reports that they were able to sit him down in a chair, but the patient was unable to respond to any verbal commands for least 5 minutes. Patient reports that just prior to the episode, he felt dizzy, got tunnel vision, and had a general sensation of feeling like he was going to pass out. Patient also states that he normally feels short of breath first, which then precipitates the rest of the symptoms. Patient also reported significantly bad nausea and during this last episode. EMS was called and the patient was transferred to the hospital for further evaluation. Patient had an EKG upon arrival but did demonstrate atrial fibrillation, but with a controlled ventricular rate. Patient had imaging studies completed including a CT of the head as well as the chest, both not demonstrating any acute process. Labs were significant for an elevated creatinine, which could indicate AYLIN in the presence of dehydration. Patient was subsequently admitted for further evaluation of the syncope. This morning the patient reports that he feels okay. He has had no other episodes of the syncopal or presyncopal feelings since admission. He is currently denying chest pain, shortness of breath, heart palpitations. Patient is noted to be normal sinus rhythm on telemetry. ROS: [No fever, chills, or rigors] [no cough, phlegm, or expectoration] [no nausea, vomiting, or diarrhea] [no hematuria, dysuria] [no musculoskelatal complaints] [no strokes or seizures] [no skin lesions] EXAMINATION: GENERAL: Well-appearing, well-nourished and in no acute distress. NECK: Supple without JVD or thyromegaly. LUNGS: Breath sounds clear to auscultation bilaterally. Respiration equal and unlabored. No wheezes, rales or rhonchi. HEART: Regular rate and rhythm without murmurs, rubs or gallops. S1 and S2 heard. EXTREMITIES: Normal range of motion, no edema. No clubbing or cyanosis. Peripheral pulses intact and strong. REVIEW OF LABS, ECG & MEDICAL DATA: LABS: White count 7.4, hemoglobin 12.4, platelets 197, sodium 141, potassium 4.4, B1 20.3, creatinine 1.3, calcium 9.1, magnesium 1.7, troponin-0.024, 0.021, 0.017, BNP 3840 EKG: Upon arrival to the hospital, atrial fibrillation with controlled ventricular response; early this morning, normal sinus rhythm IMAGING: Computed tomography scan of the brain without contrast dated 08/24/2023 demonstrates limited assessment of the posterior artifact due to extensive artifact, the remaining portion of brain demonstrates mild degenerative and remote ischemic change with no evidence of acute hemorrhage. Chest x-ray dated 08/24/2023 demonstrates COPD with left basilar atelectasis favored over pneumonia. VITALS: Temp 98.0, pulse 70, respirations 18, blood pressure 104/59, O2 saturation 94% on room air IMPRESSION: 1. Syncope 2. Pansystolic murmur 3. Dehydration PLAN: Obtain orthostatic vital signs. Obtain echocardiogram. Check TSH. Discontinue IV fluids. Discontinue Imdur. Negative patient beta blockers at this time. Continue Xarelto, and aspirin. Start losartan 25 mg daily. Allow patient to ambulate and move around to see if we can stimulate or otherwise reproduce his previously described symptoms. Further recommendations based on patient's clinical course. Thank you for the consult and allowing us to participate in the care of this patient. Past Medical History Past Medical History: Coronary Artery Disease (CAD), Hyperlipidemia, Hypertension, Pneumonia Additional Past Medical History / Comment(s): SL Varicose Veins. SL MURMUR. Hiatal Hernia. SOB with Activity. Arthritis History of Any Multi-Drug Resistant Organisms: None Reported Past Surgical History: Adenoidectomy, Heart Catheterization With Stent, Hernia Repair, Tonsillectomy Additional Past Surgical History / Comment(s): HEART CATH X2, STENT X1 EACH T KATHLEEN. Past Anesthesia/Blood Transfusion Reactions: No Reported Reaction Date of Last Stent Placement:: 02/2014 Past Psychological History: No Psychological Hx Reported Smoking Status: Former smoker Past Alcohol Use History: None Reported Additional Past Alcohol Use History / Comment(s): SMOKED PIPE 10-15 YEARS, QUIT 1983 Past Drug Use History: None Reported - Past Family History Mother Family Medical History: No Reported History Medications and Allergies Home Medications Medication Instructions Recorded Confirmed Type Aspirin 81 mg PO DAILY 06/22/14 08/24/23 History Atorvastatin Calcium [Lipitor] 80 mg PO HS 07/07/19 08/24/23 History Nitroglycerin Sl Tabs [Nitrostat] 0.4 mg SUBLINGUAL Q5M PRN 05/09/21 08/24/23 History Rivaroxaban [Xarelto] 20 mg PO DAILY #90 tab 05/24/23 08/24/23 Rx Furosemide [Lasix] 20 mg PO DAILY PRN 08/24/23 08/24/23 History Psyllium Husk 100% [Metamucil 6 gm PO DAILY 08/24/23 08/24/23 History Packet] Acetaminophen Tab [Tylenol] 650 mg PO Q6HR PRN tab 08/25/23 Rx Allergies Allergy/AdvReac Type Severity Reaction Status Date / Time amoxicillin Allergy Rash/Hives Verified 08/24/23 14:08 Penicillins Allergy Unknown Verified 08/24/23 14:08 chocolate AdvReac Chest Uncoded 08/24/23 14:08 Pain, stabbing pains Physical Exam Vitals: Vital Signs Temp Pulse Resp BP Pulse Ox 08/25/23 09:53 73 18 108/57 08/25/23 07:00 98 F 70 18 104/59 94 L 08/25/23 02:00 68 08/25/23 01:55 97.6 F 81 16 120/66 95 08/24/23 19:35 97.9 F 74 16 136/69 98 08/24/23 15:06 97.8 F 66 16 99/56 97 Intake and Output 08/24/23 08/25/23 08/25/23 22:59 06:59 14:59 Intake Total 360 Balance 360 Intake: Oral 360 Other: Voiding Method Toilet # Voids 1 0 Weight 90.718 kg Results 08/25/23 05:38 08/25/23 05:38 Cardiac Enzymes 08/24/23 08/24/23 08/25/23 Range/Units 14:32 17:56 05:38 AST 18 (14-35) U/L Troponin I 0.021 0.017 (0.000-0.034) ng/mL CBC 08/25/23 Range/Units 05:38 WBC 7.46 (4.50-10.00) X 10*3/uL RBC 4.11 L (4.40-5.60) X 10*6/uL Hgb 12.4 L (13.0-17.0) d/dL Hct 37.5 L (39.6-50.0) % Plt Count 197 (140-440) X 10*3/uL Comprehensive Metabolic Panel 08/25/23 Range/Units 05:38 Sodium 141 (135-145) mmol/L Potassium 4.4 (3.5-5.5) mmol/L Chloride 110 H (96-109) mmol/L Carbon Dioxide 23.7 (21.6-31.8) mmol/L BUN 20.3 (9.0-27.0) mg/dL Creatinine 1.3 (0.6-1.5) mg/dL Glucose 94 (70-110) mg/dL Calcium 9.1 (8.7-10.3) mg/dL AST 18 (14-35) U/L ALT 14 (10-49) U/L Alkaline Phosphatase 83 (41-126) U/L Total Protein 5.3 L (6.2-8.2) d/dL Albumin 3.6 L (3.8-4.9) d/dL Current Medications Generic Name Dose Route Start Last Admin Trade Name Freq PRN Reason Stop Dose Admin Acetaminophen 650 mg 08/24/23 13:30 Acetaminophen Tab 325 Mg Tab PO Q6HR PRN Mild Pain or Fever > 100.5 Aspirin 81 mg 08/25/23 09:00 08/25/23 08:41 Aspirin 81 Mg PO 81 mg DAILY MARK Administration Atorvastatin Calcium 80 mg 08/24/23 21:00 08/24/23 20:46 Atorvastatin 80 Mg Tab PO 80 mg HS MARK Administration Famotidine 20 mg 08/24/23 21:00 08/25/23 08:41 Famotidine 20 Mg Tab PO 20 mg BID MARK Administration Naloxone HCl 0.2 mg 08/24/23 13:30 Naloxone 0.4 Mg/Ml 1 Ml Vial IV Q2M PRN Opioid Reversal Rivaroxaban 20 mg 08/25/23 09:00 08/25/23 08:41 Rivaroxaban 20 Mg Tab PO 20 mg DAILY MARK Administration Protocol Intake and Output 08/24/23 08/25/23 08/25/23 22:59 06:59 14:59 Intake Total 360 Balance 360 Intake: Oral 360 Other: Voiding Method Toilet # Voids 1 0 Weight 90.718 kg 08/25/23 05:38 08/25/23 05:38
[2023-08-25 15:34] VITALS: BP 112/65; PULSE 77; TEMP 98.2
--- NOTE | 2023-08-26 13:08 | CA ---
Transthoracic Echo Report Name: Deric Burks Age: 78 Gender: M : 1945 Exam Date: 08/25/2023 11:20 Exam Location: [facility] Ht (in): 76 Wt (lb): 200 Ordering Physician: Angus Bermudez Attending/Referring Phys: Ccie Lisseth Duarte RDCS Procedure CPT: Indications: Syncope Cardiac Hx: Technical Quality: Technically difficult study Contrast 1: Lumason Total Dose (mL): 4 Contrast 2: Total Dose (mL): MEASUREMENTS (Male / Female) Normal Values 2D ECHO LV Diastolic Diameter PLAX 3.5 cm 4.2 - 5.9 / 3.9 - 5.3 cm LV Systolic Diameter PLAX 1.6 cm IVS Diastolic Thickness 2.4 cm 0.6 - 1.0 / 0.6 - 0.9 cm LVPW Diastolic Thickness 1.8 cm 0.6 - 1.0 / 0.6 - 0.9 cm LV Relative Wall Thickness 1.2 RV Internal Dim ED PLAX 2.4 cm LVOT Diameter 2.0 cm LA Volume 85.6 cm??? 18 - 58 / 22 - 52 cm??? M-MODE Aortic Root Diameter MM 3.6 cm LA Systolic Diameter MM 4.5 cm LA Ao Ratio MM 1.3 AV Cusp Separation MM 2.4 cm DOPPLER AV Peak Velocity 245.7 cm/s AV Peak Gradient 24.2 mmHg AV Mean Velocity 175.1 cm/s AV Mean Gradient 13.7 mmHg AV Velocity Time Integral 56.0 cm LVOT Peak Velocity 454.9 cm/s LVOT Peak Gradient 82.8 mmHg LVOT Velocity Time Integral 79.1 cm LVOT Stroke Volume 251.4 cm??? LVOT Stroke Volume Index 113.5 ml/m??? LVOT Cardiac Index 9565.9 cm???/min???m??? AV Area Cont Eq vti 4.5 cm??? AV Area Cont Eq pk 5.9 cm??? MV Area PHT 3.5 cm??? Mitral E Point Velocity 109.7 cm/s Mitral A Point Velocity 88.0 cm/s Mitral E to A Ratio 1.2 MV Deceleration Time 216.6 ms MV E' Velocity 3.8 cm/s Mitral E to MV E' Ratio 28.5 TR Peak Velocity 228.1 cm/s TR Peak Gradient 20.8 mmHg Right Ventricular Systolic Press 25.8 mmHg FINDINGS Left Ventricle Severely increased left ventricular wall thickness. Severe concentric left ventricular hypertrophy. Normal left ventricular systolic function with no obvious regional wall motion abnormalities. Left ventricular cavity size normal. Left ventricular ejection fraction is estimated at 55-60 %. LVOT obstruction noted. LVOT peak velocity 4.5 m/s, Peak PG 24mmHg, Mean PG 14mmhg. Right Ventricle Normal right ventricular size and function. Right ventricular systolic pressure within normal limits. Right Atrium Normal right atrial size. Left Atrium Severely increased left atrial volume. Mildly increased left atrial area. Mitral Valve Mild mitral annular calcification. No mitral stenosis. Moderate mitral regurgitation. Posteriorly directed mitral regurgitation jet. Aortic Valve No aortic valve stenosis or regurgitation. Tricuspid Valve Structurally normal tricuspid valve. Mild tricuspid regurgitation. Pulmonic Valve Trace pulmonic regurgitation. Pericardium Small pericardial effusion. Aorta Normal size aortic root and proximal ascending aorta. CONCLUSIONS LVH with preserved systolic function Thickened pericardium with organized material in the pericardium, small Previewed by: Dr. Marv Vaca MD (Electronically Signed) Final Date: 26 August 2023 13:07
--- NOTE | 2023-09-01 09:51 | P.DS ---
Providers Date of admission: 08/24/23 13:30 Expected date of discharge: 08/25/23 Attending physician: Karoline Mendes Consults: 08/24/23 16:45 Consult Physician Routine Consulting Provider: Veronica Alvarado Consult Reason/Comments: syncope Do you want consulting provider notified?: Yes Primary care physician: Sameer Mcneil [facility] Course: Final diagnosis -Syncope, more like presyncope appears to be secondary to hypotension -Chronic A. 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 Patient will follow-up with Dr. Mcneil in the outpatient setting upon discharge. Patient is to continue with holding blood pressure medication and close outpatient follow-up with Dr. Vaca as scheduled. Patient was instructed to resume losartan if blood pressure is consistently staying above 140/90. Total time taken is greater than 35 minutes. Hospital course This is a 78-year-old male who was recently admitted with presyncopal episodes with concerns of possible syncope and episodes of hypotension. Patient is maintained on blood pressure medications along with anticoagulation for A. fib and follows outpatient with cardiology as well as Dr. Mcneil. Patient has been having these episodes and feels he has been having more frequent episodes of these and can tell when this episode will occur as he starts to feel dizzy and lightheaded needing to sit down and family reports witnessing these episodes. Patient was seen and evaluated by cardiology with adjustments to medications although patient was hypotensive. Recommend holding and monitoring blood pressures 3 times daily and recording all measurements for cardiology and primary follow-up. Patient and family instructed that if blood pressure remains elevated for at least 2-3 consecutive days above 140/90 then to resume losartan at a lower dose and close outpatient follow-up. Patient does have an appointment with cardiology this Sunday and has been instructed to keep the appointment. Patient has been up and walking frequently and has not elicited another episode as of yet. Patient will be discharged home today. Please refer to cardiology note for further HPI. Currently no reports of chest pain, shortness of breath, or palpitations. Patient is afebrile. No reports of nausea or vomiting and patient is tolerating diet. Patient will be discharged home today. Physical exam: Gen: This is a 78-year-old male who is awake, alert and oriented 3, thin built, elderly appearing HEENT: Head is atraumatic, normocephalic. Pupils equal, round. Sclerae is anicteric. NECK: Supple. No JVD. No lymphadenopathy. No thyromegaly. LUNGS: Clear to auscultation. No wheezes or rhonchi. No intercostal retracti ons. HEART: S1, S2 are muffled, irregular. ABDOMEN: Soft. Bowel sounds are present. No masses. No tenderness. EXTREMITIES: No pedal edema. No calf tenderness. NEUROLOGICAL: Patient is awake, alert and oriented x3. Cranial nerves 2 through 12 are grossly intact. Please refer to medication reconciliation sheet for a list of medications. The impression and plan of care has been dictated by Arleth Mathews, Nurse Practitioner as directed. Dr. Cinthya MD I have performed a history and examination and MDM of this patient, discussed the same with the dictator, and agree with the dictator's assessment and plan as written ,documented as a scribe. Based on total visit time, I have performed more than 50% of the visit. Patient Condition at Discharge: Stable Plan - Discharge Summary Discharge Rx Participant: No New Discharge Prescriptions: New Acetaminophen Tab [Tylenol] 650 mg PO Q6HR PRN tab PRN Reason: Mild Pain Or Fever > 100.5 Continue Aspirin 81 mg PO DAILY Atorvastatin Calcium [Lipitor] 80 mg PO HS Nitroglycerin Sl Tabs [Nitrostat] 0.4 mg SUBLINGUAL Q5M PRN PRN Reason: Chest Pain Rivaroxaban [Xarelto] 20 mg PO DAILY #90 tab Psyllium Husk 100% [Metamucil Packet] 6 gm PO DAILY Furosemide [Lasix] 20 mg PO DAILY PRN PRN Reason: Edema Discontinued Losartan Potassium [Cozaar] 50 mg PO HS amLODIPine [Norvasc] 2.5 mg PO HS Metoprolol Tartrate [Lopressor] 25 mg PO BID Isosorbide Mononitrate ER [Imdur] 60 mg PO DAILY Discharge Medication List Aspirin 81 mg PO DAILY 06/22/14 [History] Atorvastatin Calcium [Lipitor] 80 mg PO HS 07/07/19 [History] Nitroglycerin Sl Tabs [Nitrostat] 0.4 mg SUBLINGUAL Q5M PRN 05/09/21 [History] Rivaroxaban [Xarelto] 20 mg PO DAILY #90 tab 05/24/23 [Rx] Furosemide [Lasix] 20 mg PO DAILY PRN 08/24/23 [History] Psyllium Husk 100% [Metamucil Packet] 6 gm PO DAILY 08/24/23 [History] Acetaminophen Tab [Tylenol] 650 mg PO Q6HR PRN tab 08/25/23 [Rx] Follow up Appointment(s)/Referral(s): Sameer Mcneil DO [Primary Care Provider] - 1-2 days Marv Vaca MD [STAFF PHYSICIAN] - 1 Week (Keep your scheduled appointment for Sunday) Patient Instructions/Handouts: A-fib (Atrial Fibrillation) (DC), Syncope (DC), Hypotension (DC) Activity/Diet/Wound Care/Special Instructions: Activity Limited until follow-up Follow-up with primary care provider on discharge Keep your scheduled appointment with cardiology Hold blood pressure medications for now and keep monitoring blood pressure 3 times daily at the same time each day and keep a diary of all readings for primary and cardiology follow-up If blood pressure starts to increase and is consistently higher above 140/90 then may start taking losartan again and continue monitoring blood pressures until your appointment Discharge Disposition: HOME SELF-CARE
== END 2023-08-25 15:38 | disposition home or self-care (01) ==
LOC: EC 11:47 → 6NMEDSUR 13:30
PROVIDERS: ADMIT Internal Medicine; ATTEND Internal Medicine
DX: R55 Syncope and collapse (principal); I95.9 Hypotension, unspecified; I48.0 Paroxysmal atrial fibrillation; I12.9 Hypertensive chronic kidney disease with stage 1 through stage 4 chronic kidney disease, or unspecified chronic kidney disease; N18.30 Chronic kidney disease, stage 3 unspecified; J44.9 Chronic obstructive pulmonary disease, unspecified; E86.0 Dehydration; I25.10 Atherosclerotic heart disease of native coronary artery without angina pectoris; E78.5 Hyperlipidemia, unspecified; M19.90 Unspecified osteoarthritis, unspecified site; I83.90 Asymptomatic varicose veins of unspecified lower extremity; Z79.82 Long term (current) use of aspirin; Z79.01 Long term (current) use of anticoagulants; Z79.899 Other long term (current) drug therapy; Z88.0 Allergy status to penicillin; Z91.018 Allergy to other foods; Z95.5 Presence of coronary angioplasty implant and graft; Z87.19 Personal history of other diseases of the digestive system; Z87.01 Personal history of pneumonia (recurrent); Z98.890 Other specified postprocedural states; Z87.891 Personal history of nicotine dependence
CPT/HCPCS: 96360; 96361; 99285; 36415; 93005; 83880; 80053 ×2; 84443; 83735; 84484; 85025 ×2; 85610; 85730; 71046; 70450; G0378 ×2; C8929; Q9950; 93306

== ENCOUNTER → 2023-09-18 | Outpatient (CLI) | payer MEDICARE ==
[2023-09-18 16:03] LABS: ALT 30 U/L (10-49); AST 27 U/L (14-35); Chol/HDL Ratio 3.12 Ratio
== END | disposition home or self-care (01) ==
LOC: LABWHC1 10:15
PROVIDERS: ATTEND Internal Medicine Interventional Cardiology
DX: E78.2 Mixed hyperlipidemia (principal)
CPT/HCPCS: 36415; 80061; 84450; 84460

== ENCOUNTER → 2023-11-20 | Outpatient (CLI) | payer MEDICARE ==
[2023-11-20 15:12] LABS: ALT 20 U/L (10-49); AST 23 U/L (14-35); Albumin 4.5 g/dL (3.8-4.9); Albumin/Globulin Ratio 1.96 Ratio (1.60-3.17); Alkaline Phosphatase 107 U/L (41-126); BUN/Creat Ratio 10.79 Ratio (12.00-20.00); Blood Urea Nitrogen 15.1 mg/dL (9.0-27.0); Calcium 10.3 mg/dL (8.7-10.3); Carbon Dioxide 27.3 mmol/L (21.6-31.8); Chloride 106 mmol/L (96-109); Chol/HDL Ratio 2.82 Ratio; Globulin 2.3 g/dL (1.6-3.3); Glucose 102 mg/dL (70-110); LDL Cholesterol,Calculated 70.1 mg/dL (0.0-131.0); Potassium 4.1 mmol/L (3.5-5.5); Sodium 143 mmol/L (135-145); Total Bilirubin 1.1 mg/dL (0.3-1.2); Total Protein 6.8 g/dL (6.2-8.2)
== END | disposition home or self-care (01) ==
LOC: LABWHC1 09:11
PROVIDERS: ATTEND Internal Medicine Interventional Cardiology
DX: E78.2 Mixed hyperlipidemia (principal)
CPT/HCPCS: 36415; 80053; 80061

== ENCOUNTER 2023-11-27 08:45 | Day surgery (SDC) | payer MEDICARE ==
[2023-11-27] MEDS ORDERED: SODIUM CHLORIDE 0.9% 1,000 ML IV ONE (08:53)
[2023-11-27 09:17] LABS: Basophils % (A) 1 %; Eosinophils # (A) 0.1 k/uL (0-0.7); Eosinophils % (A) 2 %; HCT 51.4 % (39.0-53.0); HGB 16.9 gm/dL (13.0-17.5); Lymphocytes # (A) 2.2 k/uL (1.0-4.8); Lymphocytes % (A) 28 %; MCH 30.3 pg (25.0-35.0); MCHC 32.8 g/dL (31.0-37.0); MCV 92.4 fL (80.0-100.0); Mean Platelet Volume 7.6; Monocytes # (A) 0.5 k/uL (0-1.0); Monocytes % (A) 6 %; Neutrophils # (A) 4.9 k/uL (1.3-7.7); Neutrophils % (A) 62 %; Platelet Count 261 k/uL (150-450); RBC 5.57 m/uL (4.30-5.90); RDW 13.9 % (11.5-15.5); WBC 7.9 k/uL (3.8-10.6)
[2023-11-27 09:30] LABS: African American GFR (CKD) 55 (>60 ml/min/1.73 sqM); Anion Gap 15 mmol/L; Blood Urea Nitrogen 14 mg/dL (9-20); Calcium 10.2 mg/dL (8.4-10.2); Carbon Dioxide 25 mmol/L (22-30); Chloride 104 mmol/L (98-107); Glucose 109 mg/dL (74-99); Non-African American GFR(CKD) 48 (>60 ml/min/1.73 sqM); Potassium 3.7 mmol/L (3.5-5.1); Sodium 144 mmol/L (137-145)
[2023-11-27] MEDS ORDERED: LIDOCAINE 1% INJ 10MG/ML (20 ML MDV) ONE ×2 (10:40→10:50)
[2023-11-27] MEDS ORDERED: PHENYLEPHRINE 10 MG/ML VIAL ONE (10:50)
[2023-11-27] MEDS ORDERED: PROPOFOL 10 MG/ML 20 ML VIAL IV ONE (10:50)
[2023-11-27] MEDS ORDERED: MIDAZOLAM 2 MG/2 ML VIAL ONE (10:50)
[2023-11-27] MEDS ORDERED: PHENYLEPHRINE-0.9% NACL SYG 1,000 MCG/10 ML SYRINGE ONE (10:50)
[2023-11-27] MEDS ORDERED: ETOMIDATE 2 MG/ML 10 ML VIAL ONE (10:50)
[2023-11-27] MEDS ORDERED: HEPARIN SODIUM,PORCINE 10,000 UNIT/ML 1 ML VIAL ONE (10:50)
[2023-11-27] MEDS ORDERED: SUCCINYLCHOLINE CHLORIDE 200 MG/10 ML VIAL IV ONE (10:50)
[2023-11-27] MEDS ORDERED: fentaNYL (PF) 50 MCG/ML 2 ML AMP ONE (10:50)
[2023-11-27] MEDS ORDERED: LIDOCAINE 1% INJ 10MG/ML (20 ML MDV) SQ ONE ×2 (11:29→11:30)
[2023-11-27] MEDS ORDERED: HEPARIN SOD,PORK IN 0.45% NACL 25,000 UNIT in 0.45% NACL 1 250ML.BAG IV ONE (11:32)
[2023-11-27] MEDS ORDERED: IOPAMIDOL-370 100ML BTL INJ ONE (13:10)
--- NOTE | 2023-11-27 14:02 | P.HPCAR ---
History of Present Illness This is Dr. Vaca dictating an H/P on this patient The patient was interviewed and examined IMPRESSION / ASSESSMENT: Paroxysmal atrial fibrillation Left atrial enlargement Pericarditis, chronic Symptomatic with presyncope during atrial fibrillation Hypertrophic cardio myopathy with severe LVH Creatinine 1.4 to PLAN: A. fib ablation with PVI and linear ablation the left atrial roof Continue Xarelto IV hydration following procedure Follow-up BUN and creatinine HPI Patient has not had any episodes of atrial fibrillation with RVR and syncope in the last few weeks He was previously able to the hospital with recent cardiac atrial fibrillation associated with the syncope No fever chills cough expectoration ROS: No fever chills or rigors, no cough, phlegm or expectoration, no nausea, vomiting or diarrhea, no hematuria, dysuria, no musculoskeletal complaints, no strokes or seizures, no skin lesions. EXAMINATION: 146/72 mmHg pulse rate 100 beats a minute Breath sounds are clear no rhonchi no crackles heart sounds are normal no murmurs at rest Extremities warm no edema REVIEW OF LABS, ECG & MEDICAL DATA Hemoglobin 16.9 Electrolytes normal Creatinine 1.4 to TSH normal Physical Exam Vitals: Vital Signs Temp Pulse Resp BP Pulse Ox 11/27/23 09:00 97 F L 100 16 146/73 99 Intake and Output 11/26/23 11/27/23 11/27/23 22:59 06:59 14:59 Intake Total 524 Balance 524 Intake: IV 524 Other: Weight 89.9 kg Past Medical History Past Medical History: Coronary Artery Disease (CAD), Hyperlipidemia, Hypertension, Osteoarthritis (OA), Pneumonia, Syncope Additional Past Medical History / Comment(s): SL Varicose Veins. SL MURMUR. . SOB with Activity. see Dr Vaca H&P. hx of kidney stones. gets close to blacking out at times with Afib per pt. History of Any Multi-Drug Resistant Organisms: None Reported Past Surgical History: Adenoidectomy, Heart Catheterization With Stent, Hernia Repair, Tonsillectomy Additional Past Surgical History / Comment(s): HEART CATH X2, STENT X1 EACH TIME. Past Anesthesia/Blood Transfusion Reactions: No Reported Reaction Date of Last Stent Placement:: 02/2014 Smoking Status: Former smoker - Past Family History Mother Family Medical History: No Reported History Physical Examination Vital Signs Temp Pulse Resp BP Pulse Ox 11/27/23 09:00 97 F L 100 16 146/73 99 Intake and Output 11/26/23 11/27/23 11/27/23 22:59 06:59 14:59 Intake Total 524 Balance 524 Intake: IV 524 Other: Weight 89.9 kg Results 11/27/23 08:52 11/27/23 08:52 CBC 11/27/23 Range/Units 08:52 WBC 7.9 (3.8-10.6) k/uL RBC 5.57 (4.30-5.90) m/uL Hgb 16.9 (13.0-17.5) gm/dL Hct 51.4 (39.0-53.0) % Plt Count 261 (150-450) k/uL Comprehensive Metabolic Panel 11/27/23 Range/Units 08:52 Sodium 144 (137-145) mmol/L Potassium 3.7 (3.5-5.1) mmol/L Chloride 104 (98-107) mmol/L Carbon Dioxide 25 (22-30) mmol/L BUN 14 (9-20) mg/dL Creatinine 1.42 H (0.66-1.25) mg/dL Glucose 109 H (74-99) mg/dL Calcium 10.2 (8.4-10.2) mg/dL Current Medications Generic Name Dose Route Start Last Admin Trade Name Blakeq PRN Reason Stop Dose Admin Sodium Chloride 1,000 mls @ 50 mls/hr 11/27/23 06:08 Saline 0.9% IV 12/27/23 06:09 .Q20H MARK Intake and Output 11/26/23 11/27/23 11/27/23 22:59 06:59 14:59 Intake Total 524 Balance 524 Intake: IV 524 Other: Weight 89.9 kg Patient Weight 11/28/23 06:59 Weight 89.9 kg 11/27/23 08:52 11/27/23 08:52
[2023-11-27] MEDS ORDERED: ACETAMINOPHEN TAB 325 MG TAB PO PRN (14:06)
--- NOTE | 2023-11-27 14:10 | P.EPPROC ---
- EP Procedure Note Electrophysiology Procedure Note: PROCEDURE A. fib ablation DIAGNOSIS Atrial fibrillation, symptomatic, refractory to therapy RESULT No left atrial appendage mass seen on intracardiac echo Successful A. fib ablation/pulmonary vein isolation of all veins using cryo- ablation Complete entrance block in all 4 veins confirmed Left atrial roof ablation No evidence for phrenic nerve injury Esophageal deflection YES PROCEDURE DETAILS Written informed consent prior to procedure. Patient brought to the EP lab. General anesthesia given. Heparin administered. A city maintained above 300 seconds Both groins prepped and draped per protocol and venous sheaths placed. Esophagus intubated, circa catheter for temperature monitoring an endoscope for possible esophageal deflection. Phrenic nerve monitoring performed. Esophageal temperature monitoring performed. Esophageal deflection performed if circa catheter overlapping with the balloon or circa temperature less than 27.5C Intracardiac echocardiography performed. Pericardium evaluated. Left atrial appendage evaluated. Left atrium evaluated along with pulmonary veins Transseptal catheterization performed under fluoroscopic guidance and intracardiac echo guidance Cryoablation sheath exchanged, balloon catheter along with achieve catheter placed in the left atrium. Pulmonary veins isolated in the following sequence: Left superior pulmonary vein followed by left inferior pulmonary vein, followed by right inferior pulmonary vein and lastly right superior pulmonary vein. Phrenic nerve stimulation along with capture thresholds within the SVC and right superior pulmonary vein to identify the phrenic nerve proximity to the cryo- balloon. Pulmonary veins isolated and confirmed with entrance and exit block. Phrenic nerve integrity confirmed at the end of the procedure Ablation of the left atrial roof performed with sequential lesions from the left superior to the right superior pulmonary veins. Ablation of the electrograms confirmed Electrical cardioversion performed for persistence of atrial fibrillation despite successful ablation. Diagnostic catheters for the high right atrium, His bundle, coronary sinus placed. LA and RA pressures recorded RA pressure: 11/02/10 LA pressure: 16/07/14 Diagnostic EP study with coronary sinus pacing and recording Baseline measurements: Sinus cycle length 1070, DC interval 97 ms, QRS 133 ms and QT interval 400 ms AH 67 and HV 33 ms Venous sheaths were removed and hemostasis assured with a closure device. Patient extubated and transferred to recovery PROCEDURES PERFORMED Diagnostic EP study CS pacing and recording Left and right transseptal catheterization Catheter the mapping of the tachycardia Intracardiac echocardiography Pulmonary vein isolation with transseptal and comprehensive EPS, [id number] Left atrial roof line, [id number]
[2023-11-27] MEDS ORDERED: METOPROLOL SUCCINATE (ER) 25 MG TAB.ER.24H PO SCH (14:15)
--- NOTE | 2023-11-27 14:15 | P.PRLE ---
RE: Deric Burks Dear Violet Patient underwent a diagnostic EP study and successful ablation for atrial fibrillation. As you know he was admitted to the hospital with very symptomatic A. fib He underwent pulmonary vein isolation as well as ablation of the left atrial roof successfully Intracardiac echo revealed thickened pericardium with effusive pericarditis especially so at the base of the LV and posterior to the left atrium This is most likely contributed to his atrial fibrillation He will continue xarelto and will follow with you and Dr. Corona as before Thank you for entrusting me with the care of the patient Warm regards Sincerely Marv Vaca
[2023-11-27] MEDS ORDERED: ACETAMINOPHEN IV (For NPO) 1,000 MG/100 ML VIAL IVPB ONE (14:45)
[2023-11-27] MEDS ORDERED: ACETAMINOPHEN IV (For NPO) 1,000 MG in EMPTY BAG 1 BAG IVPB ONE (18:00)
[2023-11-27] MEDS: SODIUM CHLORIDE 0.9% 1,000 ML IV SCH (18:15)
[2023-11-27 20:17] VITALS: RESP 16
[2023-11-27] MEDS ORDERED: ATORVASTATIN 80 MG TAB PO SCH (21:00)
[2023-11-28] MEDS: SODIUM CHLORIDE 0.9% 1,000 ML IV SCH (05:08)
[2023-11-28 08:05] VITALS: BP 112/66; PULSE 70; TEMP 98
[2023-11-28] MEDS ORDERED: ASPIRIN 81 MG PO SCH (09:00)
[2023-11-28] MEDS ORDERED: RIVAROXABAN 20 MG TAB PO SCH (09:00)
--- NOTE | 2023-11-28 09:59 | P.DS ---
Providers Date of admission: 11/27/2023 Attending physician: Marv Vaca Primary care physician: [facility] [place] Course: The patient is a 78-year-old male who follows in the office with Dr. Corona. He has a history of paroxysmal atrial fibrillation with RVR that is refractory to antiarrhythmic therapy. He was referred to electrophysiology for pulmonary vein isolation. This was performed yesterday by Dr. Vaca, which also included a left atrial roof ablation. The patient was noted to have prominent pericarditis with a small posterior chronic pericardial effusion at the base the LV and behind the left atrium. The patient was interviewed and examined sitting up in the recliner chair. He states he has been up ambulating around the unit and denies any dizziness or lightheadedness. He also denies any chest discomfort and was able to sleep c omfortably flat in bed. Mild discomfort in the right groin, however no evidence of hematoma. GENERAL: Well-appearing, well-nourished and in no acute distress. NECK: Supple without JVD or thyromegaly. LUNGS: Breath sounds clear to auscultation bilaterally. Respiration equal and unlabored. No wheezes, rales or rhonchi. HEART: Regular rate and rhythm without murmurs, rubs or gallops. S1 and S2 [address] EXTREMITIES: Normal range of motion, no edema. No clubbing or cyanosis. Peripheral pulses intact and strong. Bilateral groin sites have no hematoma or significant bruising. TELEMETRY: Sinus rhythm overnight IMPRESSION: Paroxysmal atrial fibrillation with RVR Status post pulmonary vein isolation Pericarditis, chronic with small posterior pericardial effusion Hypertrophic cardiomyopathy PLAN: Continue anticoagulation Suggest low dose beta juju therapy with history of HCM, however this will be per primary mat repairer Follow-up with Dr. Corona in one week I am dictating on behalf of Dr Marv Vaca's history/physical and assessment/plan. Plan - Discharge Summary Discharge Rx Participant: No New Discharge Prescriptions: Continue Aspirin 81 mg PO DAILY Atorvastatin Calcium [Lipitor] 80 mg PO HS Nitroglycerin Sl Tabs [Nitrostat] 0.4 mg SUBLINGUAL Q5M PRN PRN Reason: Chest Pain Rivaroxaban [Xarelto] 20 mg PO DAILY #90 tab Psyllium Husk 100% [Metamucil Packet] 6 gm PO DAILY PRN PRN Reason: Constipation Furosemide [Lasix] 20 mg PO DAILY PRN PRN Reason: Edema Acetaminophen Tab [Tylenol] 650 mg PO Q6HR PRN tab PRN Reason: Mild Pain Or Fever > 100.5 Discharge Medication List Aspirin 81 mg PO DAILY 06/22/14 [History] Atorvastatin Calcium [Lipitor] 80 mg PO HS 07/07/19 [History] Nitroglycerin Sl Tabs [Nitrostat] 0.4 mg SUBLINGUAL Q5M PRN 05/09/21 [History] Rivaroxaban [Xarelto] 20 mg PO DAILY #90 tab 05/24/23 [Rx] Furosemide [Lasix] 20 mg PO DAILY PRN 08/24/23 [History] Psyllium Husk 100% [Metamucil Packet] 6 gm PO DAILY PRN 08/24/23 [History] Acetaminophen Tab [Tylenol] 650 mg PO Q6HR PRN tab 08/25/23 [Rx] Follow up Appointment(s)/Referral(s): Emil Corona MD [STAFF PHYSICIAN] - 1 Week Activity/Diet/Wound Care/Special Instructions: Post EP study - Ablation instructions 1. Keep access sites dry for 2 days. 2. No heavy lifting or straining for 2 days. 3. Avoid bending the hips repeatedly for 2 days. 4. You may go up and down stairs slowly Call if the following is noted 1. Bleeding, increasing swelling or pain at the access sites. 2. Increasing chest discomfort, especially upon taking a deep breath. 3. Increasing shortness of breath, at rest or with exertion. 4. Undue cough / phlegm 5. Difficulty or pain while swallowing. 6. Pain or change in color in the extremities. 7. Fever, chills, rigors. 8. Increasing headache or neurologic symptoms. 9. Dizziness, fainting, palpitations
== END 2023-11-28 12:40 | disposition home or self-care (01) ==
LOC: CATHEP 08:45 → 6NMEDSUR 17:08 → CATHEP 11-28 12:40
PROVIDERS: ATTEND Internal Medicine Clinical Cardiac Electrophysiology
DX: I48.0 Paroxysmal atrial fibrillation (principal); I42.2 Other hypertrophic cardiomyopathy; I11.9 Hypertensive heart disease without heart failure; Z79.01 Long term (current) use of anticoagulants; I31.39 Other pericardial effusion (noninflammatory)
CPT/HCPCS: 93656; 93657; 86900; 86901; 80048; 84443; 85025; 86850; C1894 ×2; C1769 ×3; C1760; C1730 ×2; C1759; C1893; C1733; C1766; J2250; J0330; J1644 ×2; J2001; J3010; J0131; J2704; Q9967; J2371 ×2

== ENCOUNTER → 2024-02-26 | Outpatient (CLI) | payer MEDICARE ==
[2024-02-26 16:26] LABS: ALT 17 U/L (10-49); AST 26 U/L (14-35); Albumin 4.6 g/dL (3.8-4.9); Albumin/Globulin Ratio 1.92 Ratio (1.60-3.17); Alkaline Phosphatase 124 U/L (41-126); BUN/Creat Ratio 10.92 Ratio (12.00-20.00); Blood Urea Nitrogen 13.1 mg/dL (9.0-27.0); Carbon Dioxide 26.5 mmol/L (21.6-31.8); Chloride 105 mmol/L (96-109); Chol/HDL Ratio 2.89 Ratio; Globulin 2.4 g/dL (1.6-3.3); Glucose 101 mg/dL (70-110); LDL Cholesterol,Calculated 75.9 mg/dL (0.0-131.0); Potassium 3.9 mmol/L (3.5-5.5); Sodium 142 mmol/L (135-145); Total Bilirubin 1.1 mg/dL (0.3-1.2); VLDL Calculation 19.02 mg/dL (5.00-40.00)
== END | disposition home or self-care (01) ==
LOC: LABWHC1 09:18
PROVIDERS: ATTEND Internal Medicine Interventional Cardiology
DX: E78.2 Mixed hyperlipidemia (principal)
CPT/HCPCS: 36415; 80053; 80061

== ENCOUNTER → 2024-04-04 | Outpatient (CLI) | payer MEDICARE ==
[2024-04-04 14:33] LABS: HCT 46.1 % (39.6-50.0); HGB 15.1 g/dL (13.0-17.0); MCH 29.7 pg (27.0-32.0); MCHC 32.8 g/dL (32.0-37.0); MCV 90.6 FL (80.0-97.0); Mean Platelet Volume 9.8 FL (9.5-12.2); NRBC Per 100 WBC 0 X 10*3/uL (0.00-0.01); Platelet Count 255 X 10*3/uL (140-440); RBC 5.09 X 10*6/uL (4.40-5.60); WBC 6.79 X 10*3/uL (4.50-10.00)
[2024-04-04 16:39] LABS: Appearance,Urine Clear (Clear); Bilirubin,Urine Negative (Negative); Blood,Urine Moderate (Negative); Color,Urine Yellow (Yellow); Ketones,Urine Negative (Negative); Nitrite,Urine Negative (Negative); Specific Gravity,Urine 1.015 (1.001-1.030); Urobilinogen,Urine 0.2 E.U./DL
[2024-04-04 17:20] LABS: Bacteria,Urine None Seen (None Seen)
== END | disposition home or self-care (01) ==
LOC: LABWHC1 08:35
PROVIDERS: ATTEND Family Medicine
DX: R31.9 Hematuria, unspecified (principal)
CPT/HCPCS: 36415; 81001; 85027

== ENCOUNTER → 2024-05-20 | Outpatient (CLI) | payer MEDICARE ==
[2024-05-20 10:46] LABS: African American GFR (CKD) 67 (>60 ml/min/1.73 sqM); Blood Urea Nitrogen 16 mg/dL (9-20); Non-African American GFR(CKD) 58 (>60 ml/min/1.73 sqM)
--- NOTE | 2024-05-20 12:16 | CT ---
EXAMINATION TYPE: CT urogram wo/w con DATE OF EXAM: 05/20/2024 COMPARISON: HISTORY: hematuria CT DLP: 3261 mGycm CONTRAST: Performed and without and with IV Contrast, patient injected with 80 mL of Isovue 370. CT Urography was performed with unenhanced followed by enhanced images of the kidneys, ureters and ur inary bladder. Delayed images were obtained. 3d reconstruction was performed at a separate work sta tion. FINDINGS: KIDNEYS/BLADDER: Nonobstructing calculus lower pole right kidney measuring 2 cm. Several right-sided renal simple cysts measuring up to 8.7 cm unchanged from prior study. The left kidney demonstrates 4 5 simple cysts measuring up to 2.7 cm. No solid renal mass is seen. Ureters are of normal caliber wit hout mass or obstructive uropathy. Urinary bladder is free of mass or thickened wall. LUNG BASES-: No visible nodule. No infiltrate. Linear parenchymal scarring or atelectasis right lung base. LIVER/GB: No calcified gallstones. No space occupying hepatic lesion. Biliary tree is of normal ca liber. PANCREAS: No inflammation. No distinct mass. SPLEEN: No splenic enlargement. No lesion seen. ADRENALS: No nodule. No thickening. BOWEL: Normal appendix. Normal bowel caliber. No inflammation. GENITAL ORGANS: The prostate gland is mildly enlarged. LYMPH NODES: No greater than 1cm abdominal or pelvic lymph nodes are appreciated. AORTA: No significant abnormality. OSSEOUS STRUCTURES: No significant abnormality is seen. OTHER: No significant additional abnormality is seen. IMPRESSION: 1. Nonobstructive calculus lower pole right kidney. 2. Simple renal cystic changes without evidence for solid mass.
== END | disposition home or self-care (01) ==
LOC: RADCTMAIN 10:11
PROVIDERS: ATTEND Urology
DX: N20.0 Calculus of kidney (principal); R31.0 Gross hematuria
CPT/HCPCS: 82565; 84520; 74178; 36415; 74400; Q9967

== ENCOUNTER → 2024-05-27 | Outpatient (CLI) | payer MEDICARE ==
[2024-05-27 18:51] LABS: Basophils # (A) 0.04 X 10*3/uL (0.00-0.10); Basophils % (A) 0.5 %; Eosinophils # (A) 0.07 X 10*3/uL (0.04-0.35); Eosinophils % (A) 0.9 %; HCT 46.7 % (39.6-50.0); HGB 15.3 g/dL (13.0-17.0); Lymphocytes # (A) 1.67 X 10*3/uL (0.90-5.00); Lymphocytes % (A) 21.1 %; MCH 30.2 pg (27.0-32.0); MCHC 32.8 g/dL (32.0-37.0); MCV 92.1 FL (80.0-97.0); Mean Platelet Volume 9.7 FL (9.5-12.2); Monocytes % (A) 8.9 %; NRBC Per 100 WBC 0 X 10*3/uL (0.00-0.01); Neutrophils % (A) 68.3 %; Platelet Count 250 X 10*3/uL (140-440); RBC 5.07 X 10*6/uL (4.40-5.60); RDW 14.3 % (11.5-14.5)
[2024-05-27 19:13] LABS: BUN/Creat Ratio 11.31 Ratio (12.00-20.00); Blood Urea Nitrogen 14.7 mg/dL (9.0-27.0); Calcium 10.1 mg/dL (8.7-10.3); Carbon Dioxide 24.6 mmol/L (21.6-31.8); Chloride 103 mmol/L (96-109); Glucose 90 mg/dL (70-110); Potassium 4.3 mmol/L (3.5-5.5); Sodium 141 mmol/L (135-145)
[2024-05-28 03:34] LABS: Appearance,Urine Clear (Clear); Bilirubin,Urine Negative (Negative); Blood,Urine Large (Negative); Color,Urine Yellow (Yellow); Ketones,Urine Negative (Negative); Nitrite,Urine Negative (Negative); Specific Gravity,Urine 1.005 (1.001-1.030); Urobilinogen,Urine 0.2 E.U./DL
[2024-05-28 03:41] LABS: Bacteria,Urine None Seen (None Seen)
== END | disposition home or self-care (01) ==
LOC: LABPAT 14:22
PROVIDERS: ATTEND Urology
DX: Z01.812 Encounter for preprocedural laboratory examination (principal); N20.0 Calculus of kidney
CPT/HCPCS: 80048; 81001; 85025; 87086

== ENCOUNTER 2024-06-03 10:00 | Day surgery (SDC) | payer MEDICARE ==
[2024-05-28 12:52] VITALS: BMI 24.9
[~2024-06-03 10:00] MED LIST changes: -ALPRAZolam 0.25 MG TAB PO PRN; -ALPRAZolam 0.5 MG TAB PO PRN; -ASPIRIN 325 MG TAB PO STA; -ASPIRIN 81 MG PO SCH; -ATORVASTATIN 80 MG TAB PO SCH; -HEPARIN SODIUM 1,000 UN/ML (10ML VL) IV ONE; -HEPARIN SODIUM 1,000 UN/ML (10ML VL) ONE; +HYDROmorphone 0.5 MG/0.5 ML SYRINGE IVP PRN; -IOPAMIDOL-370 100ML BTL INJ ONE; -ISOSORBIDE MONONITRATE ER 60 MG TAB.ER.24H PO SCH; -ISOSORBIDE MONONITRATE ER 60 MG TAB.ER.24H PO STA; -LIDOCAINE 1% INJ 10MG/ML (5 ML VIAL-PF) SQ ONE; -LOSARTAN 50 MG TAB PO SCH; +MIDAZOLAM 2 MG/2 ML VIAL IV PRN; -NITROGLYCERIN SL TABS 0.4 MG TAB SUBLINGUAL PRN; -RX INFO: IV CONTRAST WAS GIVEN 1 EACH MISC MISCELLANE PRN; -SODIUM CHLORIDE 0.9% 1,000 ML IV ONE; -SODIUM CHLORIDE 0.9% 1,000 ML IV SCH; -SODIUM CHLORIDE 0.9% 1,000 ML in EMPTY BAG 1 BAG IV SCH; -VERAPAMIL 2.5 MG/ML 2 ML AMP ONE; -VERAPAMIL SYRINGE (5 MG/10 ML) INTRAARTER ONE; -amLODIPine 2.5 MG TAB PO SCH; -fentaNYL (PF) 50 MCG/ML 2 ML AMP IV ONE; -fentaNYL (PF) 50 MCG/ML 2 ML AMP ONE
[2024-06-03] MEDS: LACTATED RINGERS 1,000 ML IV SCH (11:10)
[2024-06-03] MEDS: DEXAMETHASONE SOD PHOSPHATE 4 MG/ML 1 ML VIAL IV ONE (11:15)
[2024-06-03] MEDS: ONDANSETRON 4 MG/2 ML VIAL IVP ONE (11:15)
[2024-06-03] MEDS: LACTATED RINGERS 1,000 ML IV ONE (11:34)
--- NOTE | 2024-06-03 11:38 | XR ---
EXAMINATION TYPE: XR KUB DATE OF EXAM: 06/03/2024 10:13 AM CLINICAL INDICATION:Male, 79 years old with history of kidney stone; COMPARISON: None. TECHNIQUE: One radiographic view of the abdomen was obtained. FINDINGS: The bowel gas pattern is nonspecific without dilated loops of small or large bowel. . Fecal material and gas are demonstrated throughout the colon and rectum. Calcification of the right upper renal pole. Measuring 20 x 10 mm. Multiple pelvic phleboliths. There is no evidence for organomegaly or pneumoperitoneum. The osseous structures are intact. No abnormal calcifications are present. IMPRESSION: 1. Nonspecific bowel gas pattern without radiographic evidence for acute process. 2. Calcification projecting over the right kidney measuring up to 20 x 10 mm.
[2024-06-03] MEDS ORDERED: fentaNYL (PF) 50 MCG/ML 2 ML AMP ONE (12:00)
[2024-06-03] MEDS ORDERED: PROPOFOL 10 MG/ML 20 ML VIAL IV ONE (12:00)
[2024-06-03] MEDS ORDERED: LIDOCAINE 1% INJ 10MG/ML (20 ML MDV) ONE (12:00)
[2024-06-03] MEDS ORDERED: MIDAZOLAM 2 MG/2 ML VIAL ONE (12:00)
[2024-06-03] MEDS: CIPROFLOXACIN/DEXTROSE PMX 400 MG in DEXTROSE/WATER 1 200ML.BAG IVPB PRN (12:03)
--- NOTE | 2024-06-03 13:27 | P.HPIHPCON ---
History of Present Illness H&P Date: 06/03/24 Chief Complaint: Right renal stone This is a 79-year-old male with a history of a 2 cm right-sided upper pole stone causing intermittent gross hematuria. Underwent a cystoscopy that showed no bladder pathology. CT urogram was only significant for the right-sided renal stone, discussed given his persistent hematuria I do recommend proceeding with stone removal, option of staged ureteroscopy with holmium laser versus PCNL was discussed with him in detail. Risk benefit and rationale of each approach were discussed, he agreed to proceed with a staged ureteroscopy with holmium laser. Aware the risk which includes but not limited to bleeding, infection, injury to the ureter Consent for Procedure: I have explained the operation/procedure to the patient, including the risks, benefits, side effects, alternative therapies (including not receiving the proposed treatment or service), the likelihood of the patient achieving his/her goals, and potential recuperation problems for the procedure/sedation/analgesia, as well as any blood products, if indicated. I also explained to the patient the risks, benefits and side effects of the alternatives, as well as the risks related to not receiving the proposed procedure, care, treatment, or services. Past Medical History Past Medical History: Atrial Fibrillation, Coronary Artery Disease (CAD), Hyperlipidemia, Hypertension, Pneumonia Additional Past Medical History / Comment(s): SL Varicose Veins. SL MURMUR. Hiatal Hernia. SOB with Activity. Arthritis. "bleeding from kidney." Kidney stone. History of Any Multi-Drug Resistant Organisms: None Reported Past Surgical History: Adenoidectomy, Heart Catheterization With Stent, Hernia Repair, Tonsillectomy Additional Past Surgical History / Comment(s): HEART CATH X2, STENT X1 EACH TIME. Double hernia surgery. Past Anesthesia/Blood Transfusion Reactions: No Reported Reaction Additional Past Anesthesia/Blood Transfusion Reaction / Comment(s): No hx of blood transfusion. Date of Last Stent Placement:: 02/2014 Smoking Status: Former smoker - Past Family History Mother Family Medical History: No Reported History Sister(s) Family Medical History: Cancer Additional Family Medical History / Comment(s): Colon cancer Medications and Allergies Home Medications Medication Instructions Recorded Confirmed Type Aspirin 81 mg PO QAM 06/22/14 05/28/24 History Atorvastatin Calcium [Lipitor] 80 mg PO HS 07/07/19 06/03/24 History Furosemide [Lasix] 20 mg PO DAILY PRN 08/24/23 06/03/24 History Psyllium Husk 100% [Metamucil 6 gm PO DAILY PRN 08/24/23 06/03/24 History Packet] Rivaroxaban [Xarelto] 20 mg PO QAM 05/28/24 05/28/24 History Allergies Allergy/AdvReac Type Severity Reaction Status Date / Time amoxicillin Allergy Rash/Hives Verified 06/03/24 10:53 Penicillins Allergy rash hives Verified 06/03/24 10:53 chocolate AdvReac Chest Uncoded 06/03/24 10:53 Pain, stabbing pains Surgical - Exam Vital Signs Temp Pulse Resp BP Pulse Ox 96.9 F L 79 16 148/72 96 06/03/24 10:58 06/03/24 10:58 06/03/24 10:58 06/03/24 10:58 06/03/24 10:58 - General no distress, no pain - Eyes normal ocular movement, no pale - ENT normal nares, normal mucosa - Respiratory normal expansion, normal respiratory effort - Abdomen Abdomen: soft, non tender Assessment and Plan Assessment: OR for right-sided ureteroscopy, laser lithotripsy, stone basketing and stent stent insertion. This will be a staged procedure
--- NOTE | 2024-06-03 13:31 | P.OP ---
Date of Procedure: 06/03/24 Preoperative Diagnosis: right Sided renal stone Postoperative Diagnosis: same Procedure(s) Performed: Cystoscopy, right ureteroscopy, manage lithotripsy, stone basketing and stent insertion Implants: 6 Kazakh by 28 cm stent in the right ureter Anesthesia: SUDHAKAR Surgeon: Roc Hathaway Estimated Blood Loss (ml): 5 Pathology: other (Right renal stone) Condition: stable Disposition: PACU Indications for Procedure: This is a 79-year-old male with a history of a 2 cm right-sided upper pole stone causing intermittent gross hematuria. Underwent a cystoscopy that showed no bladder pathology. CT urogram was only significant for the right-sided renal stone, discussed given his persistent hematuria I do recommend proceeding with stone removal, option of staged ureteroscopy with holmium laser versus PCNL was discussed with him in detail. Risk benefit and rationale of each approach were discussed, he agreed to proceed with a staged ureteroscopy with holmium laser. Aware the risk which includes but not limited to bleeding, infection, injury to the ureter Operative Findings: Large right-sided upper pole renal stone Description of Procedure: Patient brought to the operating room, general anesthesia was induced. He was prepped and draped in sterile fashion placed in a dorsolithotomy position. Cystoscopy fitted through the 21 [place] sheath was inserted per urethra, cystoscopy was performed showed no abnormality within the bladder, patient had a small nonobstructive prostate. Attention was then carried to the right ureteral orifice which was intubated with a sensor wire. The wire was advanced under fluoroscopy into the kidney. Next a 1113 [place] access sheath was passed over the wire into the proximal ureter. Next a flexible ureteroscope was inserted through the access sheath, renoscopy was performed which showed a large stone in the upper pole. Using the holmium laser the stone was dusted, any sizable stone fragments were removed using the stone basket, on repeat renoscopy there is no sizable fragments or injury to the kidney, on fluoroscopy there was no evidence of radiopaque densities, but of note patient had significant amount of dust which limited visualization. At this time pullback ureteroscopy was performed showed no injury to the ureter or any ureteral stones, as ureteroscope was withdrawn a sensor wire was advanced through. Next a ureteral stent was passed over the wire, the proximal curl visualized on fluoroscopy and the distal curl was visualized using the cystoscope. The bladder was emptied at the end of the case. Patient was awakened from anesthesia and taken to recovery in stable condition. He will follow-up in 2 weeks for second stage ureteroscopy
[2024-06-03 13:34] VITALS: TEMP 97.6
[2024-06-03 14:29] VITALS: PULSE 70
[2024-06-03 14:46] VITALS: BP 163/91; RESP 18
[2024-06-03] MEDS: IV FLUID CONTINUATION 1,000 ML IV ONE (15:16)
--- NOTE | 2024-06-03 15:35 | FL ---
EXAMINATION TYPE: FL guidance operating room Intraoperative/procedural fluoroscopic services were pro vided. Total fluoroscopy time is 25.9 seconds with a total of 4 submitted images to PACS. Please see the operative/procedural note for further details. DAP: [id number] mGym2
== END 2024-06-03 15:27 | disposition home or self-care (01) ==
LOC: OR 10:00
PROVIDERS: ATTEND Urology
DX: N20.0 Calculus of kidney (principal); E78.5 Hyperlipidemia, unspecified; I11.9 Hypertensive heart disease without heart failure; I25.10 Atherosclerotic heart disease of native coronary artery without angina pectoris; I48.91 Unspecified atrial fibrillation; I25.5 Ischemic cardiomyopathy; Z87.891 Personal history of nicotine dependence; Z88.0 Allergy status to penicillin; Z91.018 Allergy to other foods; Z95.5 Presence of coronary angioplasty implant and graft; Z79.82 Long term (current) use of aspirin; Z79.01 Long term (current) use of anticoagulants; Z79.899 Other long term (current) drug therapy
CPT/HCPCS: 82365; 74018; 52356; C2625; C1769; J2250; J1100; J2405; J2001; J3010; J0744; J2704

== ENCOUNTER → 2024-06-12 | Outpatient (CLI) | payer MEDICARE ==
[2024-06-12 15:19] LABS: ALT 23 U/L (10-49); AST 28 U/L (14-35); Albumin 4.5 g/dL (3.8-4.9); Alkaline Phosphatase 116 U/L (41-126); Blood Urea Nitrogen 12.9 mg/dL (9.0-27.0); Calcium 9.7 mg/dL (8.7-10.3); Carbon Dioxide 23.6 mmol/L (21.6-31.8); Chloride 104 mmol/L (96-109); Globulin 2.5 g/dL (1.6-3.3); Glucose 102 mg/dL (70-110); LDL Cholesterol,Calculated 59.2 mg/dL (0.0-131.0); Potassium 4.6 mmol/L (3.5-5.5); Sodium 140 mmol/L (135-145); Total Bilirubin 0.7 mg/dL (0.3-1.2)
== END | disposition home or self-care (01) ==
LOC: LABWHC1 09:28
PROVIDERS: ATTEND Internal Medicine Interventional Cardiology
DX: E78.2 Mixed hyperlipidemia (principal)
CPT/HCPCS: 36415; 80053; 80061

== ENCOUNTER 2024-06-17 11:18 | Day surgery (SDC) | payer MEDICARE ==
--- NOTE | 2024-06-17 09:25 | P.HPIHPCON ---
History of Present Illness H&P Date: 06/17/24 Chief Complaint: Right renal stone This is a 79-year-old male with history of a 2 cm right-sided renal stone, elected to proceed with a stage ureteroscopy, underwent stage I ureteroscopy on June 03. Presents today for stage II ureteroscopy with holmium laser. Discussed with him the risk which includes but not limited to bleeding, infection, injury to the ureter Consent for Procedure: I have explained the operation/procedure to the patient, including the risks, benefits, side effects, alternative therapies (including not receiving the proposed treatment or service), the likelihood of the patient achieving his/her goals, and potential recuperation problems for the procedure/sedation/analgesia, as well as any blood products, if indicated. I also explained to the patient the risks, benefits and side effects of the alternatives, as well as the risks related to not receiving the proposed procedure, care, treatment, or services. Past Medical History Past Medical History: Coronary Artery Disease (CAD), Hyperlipidemia, Hypertension, Osteoarthritis (OA), Pneumonia Additional Past Medical History / Comment(s): SL Varicose Veins. SL MURMUR. Hiatal Hernia. SOB with ACTIVITY Arthritis History of Any Multi-Drug Resistant Organisms: None Reported Past Surgical History: Adenoidectomy, Heart Catheterization With Stent, Hernia Repair, Tonsillectomy Additional Past Surgical History / Comment(s): HEART CATH X2, STENT X1 EACH TIME. Past Anesthesia/Blood Transfusion Reactions: No Reported Reaction Date of Last Stent Placement:: 02/2014 Smoking Status: Former smoker - Past Family History Mother Family Medical History: No Reported History Medications and Allergies Home Medications Medication Instructions Recorded Confirmed Type Aspirin 81 mg PO QAM 06/22/14 06/16/24 History Atorvastatin Calcium [Lipitor] 80 mg PO HS 07/07/19 06/16/24 History Furosemide [Lasix] 20 mg PO DAILY PRN 08/24/23 06/16/24 History Rivaroxaban [Xarelto] 20 mg PO QAM 05/28/24 06/16/24 History Metoprolol Succinate (ER) [Toprol 50 mg PO HS 06/16/24 06/16/24 History XL] Allergies Allergy/AdvReac Type Severity Reaction Status Date / Time amoxicillin Allergy Rash/Hives Verified 06/03/24 10:53 Penicillins Allergy rash hives Verified 06/03/24 10:53 chocolate AdvReac Chest Uncoded 06/03/24 10:53 Pain, stabbing pains Surgical - Exam - General no distress, no pain - Eyes normal ocular movement, no pale - ENT normal nares, normal mucosa - Respiratory normal expansion, normal respiratory effort - Psychiatric oriented to time, oriented to person, oriented to place Assessment and Plan Assessment: OR for right-sided ureteroscopy, holmium laser lithotripsy, stone basketing, and stent removal
[~2024-06-17 11:18] MED LIST changes: +LIDOCAINE 1% (10MG/ML) FOR IV START INTRADERMA PRN; -MIDAZOLAM 2 MG/2 ML VIAL IV PRN; +droPERidol 5 MG/2 ML VIAL IVP ONE
--- NOTE | 2024-06-17 11:50 | XR ---
EXAMINATION TYPE: XR KUB DATE OF EXAM: 06/17/2024 COMPARISON: 06/13/2024 HISTORY: Renal calculus TECHNIQUE: One view abdominal series FINDINGS: The osseous structures are intact. The bowel gas pattern is nonspecific. Right-sided ureteral stent is seen in calcification overlying the proximal loop measuring 1.1 cm. Additional punctate calcificat ions likely within the lower pole infundibulum and calyx measuring 1.6 cm. Additional multiple puncta te calcifications noted. Degenerative changes of the spine with bilateral hypertrophic hepatic uropathy. IMPRESSION: 1. Right-sided nephrolithiasis. Ureteral stent is noted in position.
[2024-06-17] MEDS: IV FLUID CONTINUATION 1,000 ML IV ONE (12:08)
[2024-06-17] MEDS: FAMOTIDINE 20 MG/2 ML VIAL IV STA (12:23)
[2024-06-17] MEDS: DEXAMETHASONE SOD PHOSPHATE 4 MG/ML 1 ML VIAL IV ONE (12:23)
[2024-06-17] MEDS: METOCLOPRAMIDE 5 MG/ML 2 ML VIAL IVP STA (12:24)
[2024-06-17] MEDS: ONDANSETRON 4 MG/2 ML VIAL IVP ONE (12:24)
[2024-06-17] MEDS: LACTATED RINGERS 1,000 ML IV SCH (12:24)
[2024-06-17] MEDS ORDERED: ceFAZolin 1 GM/50 ML BAG (PMX) ONE (14:49)
[2024-06-17] MEDS ORDERED: PROPOFOL 10 MG/ML 20 ML VIAL IV ONE (14:49)
[2024-06-17] MEDS ORDERED: LIDOCAINE 1% INJ 10MG/ML (20 ML MDV) ONE (14:49)
[2024-06-17] MEDS ORDERED: fentaNYL (PF) 50 MCG/ML 2 ML AMP ONE (14:49)
[2024-06-17] MEDS ORDERED: SUCCINYLCHOLINE CHLORIDE 200 MG/10 ML VIAL IV ONE (14:49)
[2024-06-17] MEDS: SODIUM CHLORIDE 0.9% 100 ML with ceFAZolin 2,000 MG IV ONE (14:54)
--- NOTE | 2024-06-17 15:53 | P.OP ---
Date of Procedure: 06/17/24 Preoperative Diagnosis: Right renal stone Postoperative Diagnosis: Same Procedure(s) Performed: Cystoscopy, right ureteroscopy, holmium laser lithotripsy, stone basketing and stent removal Implants: None Anesthesia: SUDHAKAR Surgeon: Roc Hathaway Estimated Blood Loss (ml): 5 Pathology: other (Right renal stone) Condition: stable Disposition: PACU Indications for Procedure: This is a 79-year-old male with history of a 2 cm right-sided renal stone, elected to proceed with a stage ureteroscopy, underwent stage I ureteroscopy on June 03. Presents today for stage II ureteroscopy with holmium laser. Discussed with him the risk which includes but not limited to bleeding, infection, injury to the urete Operative Findings: Multiple small right-sided renal stones Description of Procedure: Patient brought to the operating room, general anesthesia was induced. He was prepped and draped in sterile fashion placed in dorsolithotomy position. Cystoscopy with a 21 [place] Islander sheath was inserted per urethra, cystoscopy was performed showed no abnormality within the bladder. Attention was then carried to the right ureteral orifice, the stent was grasped and removed to the meatus, next a sensor wire was advanced through the stent, the stent was removed with the wire in place. Next under fluoroscopy and 1113 [place] Islander access sheath was passed over the wire into the proximal ureter. Next a flexible ureteroscope was inserted through the access sheath, renoscopy was performed showed multiple small stones throughout the kidney, stone basketing was performed in order to basket any sizable fragments, repeat renoscopy showed no sizable fragments or injury to the kidney, the small fragments were further dusted using the holmium laser under popcorn settings. Repeat renoscopy showed no sizable fragments on fluoroscopy there is no radiopaque density seen's. Pullback ureteroscopy was performed showed no injury to the ureter or any ureteral stones. No stent was placed. The bladder was emptied at the end of the case. Patient tolerated procedure was taken to recovery in stable condition
[2024-06-17 16:02] VITALS: TEMP 96.6
--- NOTE | 2024-06-17 16:29 | FL ---
EXAMINATION TYPE: FL guidance operating room Intraoperative/procedural fluoroscopic services were pro vided. Total fluoroscopy time is 10 seconds with a total of 1 submitted images to PACS. Please see th e operative/procedural note for further details. DAP: [id number] mGym2 Gycm2 uGym2 cGycm2
[2024-06-17 16:30] VITALS: RESP 16
[2024-06-17 16:48] VITALS: BP 128/68; PULSE 75
== END 2024-06-17 17:13 | disposition home or self-care (01) ==
LOC: OR 11:18
PROVIDERS: ATTEND Urology
DX: N20.0 Calculus of kidney (principal); E78.5 Hyperlipidemia, unspecified; I10 Essential (primary) hypertension; I25.10 Atherosclerotic heart disease of native coronary artery without angina pectoris; M19.90 Unspecified osteoarthritis, unspecified site; I48.0 Paroxysmal atrial fibrillation; J18.9 Pneumonia, unspecified organism; Z87.891 Personal history of nicotine dependence; Z88.0 Allergy status to penicillin; Z90.89 Acquired absence of other organs; Z98.890 Other specified postprocedural states; Z95.5 Presence of coronary angioplasty implant and graft; Z79.82 Long term (current) use of aspirin; Z79.01 Long term (current) use of anticoagulants; Z79.899 Other long term (current) drug therapy
CPT/HCPCS: 52353; 82365; 74018; C1769; J0330; J1100; J2765; J2405; J0690 ×2; J2001; J3010; J3490; J2704

== ENCOUNTER 2024-07-02 10:15 | Day surgery (SDC) | payer MEDICARE ==
[~2024-07-02 10:15] MED LIST changes: -HYDROmorphone 0.5 MG/0.5 ML SYRINGE IVP PRN; +LACTATED RINGERS 1,000 ML BAG ONE; -LIDOCAINE 1% (10MG/ML) FOR IV START INTRADERMA PRN; +PROPOFOL 10 MG/ML 20 ML VIAL IV ONE; -droPERidol 5 MG/2 ML VIAL IVP ONE
--- NOTE | 2024-07-25 12:53 | P.PCN ---
Date of Procedure: 07/02/24 Procedure(s) Performed: This is an addendum to the procedure that was performed on 07/02/2024 Procedure performed colonoscopy with snare polypectomy Procedure: The scope was advanced all the way into the cecum. Careful examination was performed as the scope was gradually being withdrawn. There was a 3 mm and 6 mm cecal polyp that was removed by cold snare polypectomy. There was a 5 mm and 3 mm transverse colon polyp removed by cold snare polypectomy. Scattered sigmoid diverticulosis seen.
== END 2024-07-02 10:55 | disposition home or self-care (01) ==
LOC: ORWHC2ENDO 10:15
PROVIDERS: ATTEND Internal Medicine Gastroenterology
DX: Z12.11 Encounter for screening for malignant neoplasm of colon (principal); D12.0 Benign neoplasm of cecum; D12.3 Benign neoplasm of transverse colon; K57.30 Diverticulosis of large intestine without perforation or abscess without bleeding; I25.10 Atherosclerotic heart disease of native coronary artery without angina pectoris; I10 Essential (primary) hypertension; Z88.0 Allergy status to penicillin; Z91.018 Allergy to other foods; Z79.01 Long term (current) use of anticoagulants; Z79.82 Long term (current) use of aspirin; Z79.899 Other long term (current) drug therapy
CPT/HCPCS: 45385; 88305

== ENCOUNTER → 2024-08-15 | Outpatient (CLI) | payer MEDICARE ==
[2024-08-15 15:13] LABS: ALT 20 U/L (10-49); AST 27 U/L (14-35); Albumin 4.4 g/dL (3.8-4.9); Albumin/Globulin Ratio 1.91 Ratio (1.60-3.17); Alkaline Phosphatase 121 U/L (41-126); BUN/Creat Ratio 15.33 Ratio (12.00-20.00); Blood Urea Nitrogen 18.4 mg/dL (9.0-27.0); Calcium 9.8 mg/dL (8.7-10.3); Carbon Dioxide 23.6 mmol/L (21.6-31.8); Chloride 107 mmol/L (96-109); Chol/HDL Ratio 2.79 Ratio; Globulin 2.3 g/dL (1.6-3.3); Glucose 95 mg/dL (70-110); Potassium 4.4 mmol/L (3.5-5.5); Sodium 142 mmol/L (135-145); Total Protein 6.7 g/dL (6.2-8.2); VLDL Calculation 19.18 mg/dL (5.00-40.00)
== END | disposition home or self-care (01) ==
LOC: LABWHC1 09:09
PROVIDERS: ATTEND Internal Medicine Interventional Cardiology
DX: E78.2 Mixed hyperlipidemia (principal)
CPT/HCPCS: 36415; 80053; 80061